=== PATIENT | male | born 1960 | race Caucasian/White ===

== ENCOUNTER 2018-08-04 22:31 | Inpatient (IN) ==
[2018-08-04] MEDS ORDERED: Morphine Inj 4 MG/ML Vial IV.PUSH ONE (22:54)
[2018-08-04] MEDS ORDERED: ceFAZolin 2 GM Premix Inj 2 GM/50 ML PIGGYBACK IV.SIG ONE (22:54)
[2018-08-04] MEDS ORDERED: Sod Chloride 0.9% Inj 1,000 ML IV.CONT SCH (23:00)
--- NOTE | 2018-08-04 23:07 | ED ---
HPI General Chief Complaint: Fall Stated Complaint: Fall Time Seen by Provider: 08/04/18 22:53 Source: patient Mode of arrival: EMS Limitations: no limitations History of Present Illness HPI narrative: The patient is a 57-year-old male who presents to the emergency department via EMS [place]. [place], when he missed the first step of the escalator and fell down the entire length of the escalator. The patient does not believe there was a loss of consciousness, however, does admit to drinking approximately 6-8 beers earlier tonight. The patient complains of a large laceration to the anterior aspect of the right lower extremity as well as abrasions of the anterior abdominal wall and chest wall. The patient also notes lacerations to the right side of the head, denies any significant headache or neck pain. He denies any shortness of breath, nausea, vomiting, or abdominal pain. He denies any difficulty using the upper or lower extremities, however, does complain of pain over the anterior aspect of the right lower extremity. He denies taking any anticoagulants. Last tetanus shot was approximately 5-6 years ago. complaint: Reports fall Onset (ago): minute(s) Loss of Consciousness: unsure Location: Reports head, face, chest and abdomen Location - Extremities: Right: lower leg Severity: moderate Severity scale (1-10): 5 Context: Reports fall Associated symptoms: Reports denies other symptoms Treatments prior to arrival: Reports tourniquet Related Data Home Medications Medication Instructions Recorded Confirmed Htn Med 08/05/18 Prostate Med 08/05/18 Allergies Allergy/AdvReac Type Severity Reaction Status Date / Time No Known Allergies Allergy Verified 08/04/18 22:54 Review of Systems ROS: all other systems reviewed are negative [facility] Medical History Medical History Enlarged prostate (Acute) Hypertension (Acute) Surgical History Surgical History No history of previous surgery (Acute) Social History Social History Substance History: No History of Abuse Second Hand Smoke Exposure: No Smoking Status: Never smoker How Often Do You Have a Drink Containing Alcohol: 2 to 4 times a month Exam Narrative Exam Narrative: GENERAL: Awake, alert, 57-year-old male who appears his stated age and is in no acute respiratory distress. SKIN: Multiple abrasions to the right side of the face. Abrasions noted of the anterior chest wall and abdomen. Large laceration to the right lower extremity of the mid right tibia/fibula. HEAD: Atraumatic. Normocephalic. EYES: Pupils equal and round. 3 mm bilateral and reactive. EOMs are intact. The patient is able to see fingers at a distance of 2 feet without difficulty. ENT: No nasal bleeding or discharge. Mucous membranes pink and moist. NECK: Trachea midline. No JVD. No midline tenderness. CARDIOVASCULAR: Regular rate and rhythm. No murmur appreciated. RESPIRATORY: No accessory muscle use. Clear to auscultation. Breath sounds equal bilaterally. GASTROINTESTINAL: Abdomen soft, obese, superficial abrasions of the anterior abdominal wall. MUSCULOSKELETAL: Chronic venous stasis changes to lower extremities bilaterally. Large laceration to the mid right tibia/fibula which appears to go to the muscle, there is no obvious bony deformity. NEUROLOGICAL: Awake and alert. No obvious cranial nerve deficits. Motor grossly within normal limits. Normal speech. Alert and oriented x3. Back: No tenderness over the thoracic or lumbar vertebrae. PSYCHIATRIC: Appropriate mood and affect; insight and judgment normal. Course Initial Documented Vital Signs Temperature 98.9 F 08/04/18 22:50 Pulse Rate 61 08/04/18 22:50 Respiratory Rate 19 08/04/18 22:50 Blood Pressure 116/67 08/04/18 22:50 Pulse Oximetry 97 08/04/18 22:50 Last Documented Vital Signs Temperature 98.9 F 08/04/18 22:50 Pulse Rate 98 H 08/05/18 06:15 Respiratory Rate 18 08/05/18 06:15 Blood Pressure 84/50 L 08/05/18 06:15 Pulse Oximetry 98 08/05/18 06:15 Medical Decision Making MDM Narrative Medical decision making narrative: IV was established, labs are drawn and sent, and the patient was placed on cardiac telemetry monitoring and continuous pulse oximetry monitoring. X the right tibia/fibula was ordered. Chest x-ray was ordered. CT of the brain, cervical spine, thorax, and abdomen/pelvis was obtained. 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 I discussed the patient with the trauma surgeon, Dr. Crenshaw, who states that the injury is lower than the knee, according to surgical guidelines at [place] that would be a podiatry repair. We did have a discussion, agreed to call back if there is any other injuries and the patient needed trauma admission. CT of the brain and cervical spine are unremarkable. CT of the thorax and abdomen/pelvis are negative. CT of the facial bones reveals facial fractures of the lateral orbit as well as buckling of the maxillary sinus. Patient's alcohol level was also elevated. The patient will need operative debridement and closure of the right lower extremity laceration, patient will be at high risk for infection as he has chronic venous insufficiency of the right lower extremity with skin changes noted. Therefore, patient will be a 23-hour observation to the trauma service, will be kept n.p.o. after midnight, I will place a routine consult for [facility] to see the patient. A call was placed to the biscuitware brusher on-call to discuss possible management of the right lower extremity laceration. I discussed the patient with Dr. Flaherty who requested that the laceration be irrigated in the emergency department and dressings applied, he may take the patient to the operating room later today at 3 PM. The patient's blood pressure did fall to the 90s, there is no obvious source of hemorrhage except for the leg laceration, pressure dressing had been applied. Therefore, the patient was administered IV fluids and monitored in the emergency department. The patient's heart rate was in the 60s-70s, blood pressure systolic was in the 90s, but he was awake, alert, and oriented without confusion. The patient continued to be monitored in the emergency department. The patient's right leg wound was irrigated by the mid-level provider, please refer to the procedure note. The facial wounds were also evaluated by the mid- level provider. The patient continued to be monitored in the emergency department. The patient's blood pressure continued to be in the 80s and 90s, there is no tachycardia, and he was able to have a conversation at bedside. However, when patient sat up and blood pressure was reevaluated, it would drop. Repeat CBC did not show a significant reduction in the hemoglobin, he went from 11.1-10.2. Therefore, I discussed the patient once again with Dr. Crenshaw at 6:15 AM who recommends admission the [facility], he will evaluate the patient in the emergency department. Medical Screen Exam Complete: Yes Emergency Medical Condition: Yes Differential Diagnosis Differential Diagnosis: Differential diagnosis includes multisystem trauma, closed head injury, intracranial hemorrhage, cervical fracture, rib fracture, intra-abdominal injury, tissue avulsion, laceration, contusion, hematoma. Lab Data Result diagrams: 08/05/18 04:45 08/04/18 22:00 Lab Results 08/04/18 08/04/18 08/04/18 Range/Units 22:00 22:00 23:40 WBC 4.4 (4.0-11.0) th/mm3 RBC 3.45 L (4.50-5.90) mil/mm3 Hgb 11.2 L (13.0-17.0) gm/dL Hct 32.8 L (39.0-51.0) % MCV 95.0 (80.0-100.0) fL MCH 32.5 (27.0-34.0) pg MCHC 34.2 (32.0-36.0) % RDW 13.9 (11.6-17.2) % Plt Count 87 L (150-450) th/mm3 MPV 8.1 (7.0-11.0) fL Prelim Diff (Auto) Slide review pending Neut % (Auto) 69.8 (16.0-70.0) % Lymph % (Auto) 19.5 (9.0-44.0) % [place] % (Auto) 6.7 (0.0-8.0) % Eos % (Auto) 3.4 (0.0-4.0) % Baso % (Auto) 0.6 (0.0-2.0) % Neut # (Auto) 3.1 (1.8-7.7) th/mm3 Lymph # (Auto) 0.9 L (1.0-4.8) th/mm3 [place] # (Auto) 0.3 (0.0-0.9) th/mm3 Eos # (Auto) 0.2 (0.0-0.4) th/mm3 Baso # (Auto) 0.0 (0.0-0.2) th/mm3 WBC Differential . Diff Scan Auto diff confirmed Differential Comment . Platelet Estimate Low L (Normal) Platelet Morphology Normal (Normal) PT (9.8-11.6) sec INR Ratio APTT (23.4-31.7) sec Sodium 131 L (136-145) meq/L Potassium 4.0 (3.5-5.1) meq/L Chloride 101 (98-107) meq/L Carbon Dioxide 18.9 L (21.0-32.0) meq/L Anion Gap 11 (5-15) meq/L BUN 22 H (7-18) mg/dL Creatinine 1.32 H (0.60-1.30) mg/dL Estimated GFR 56 L (>89) mL/min Random Glucose 115 H (74-106) mg/dL Calcium 7.5 L (8.5-10.1) mg/dL Serum Alcohol 229 H (0-5) mg/dL Blood Type A Positive Blood Type Recheck Required Antibody Screen Negative 08/04/18 08/05/18 Range/Units 23:40 04:45 WBC 5.1 (4.0-11.0) th/mm3 RBC 3.18 L (4.50-5.90) mil/mm3 Hgb 10.1 L (13.0-17.0) gm/dL Hct 29.8 L (39.0-51.0) % MCV 93.6 (80.0-100.0) fL MCH 31.9 (27.0-34.0) pg MCHC 34.0 (32.0-36.0) % RDW 13.9 (11.6-17.2) % Plt Count 78 L (150-450) th/mm3 MPV 7.9 (7.0-11.0) fL Prelim Diff (Auto) Slide review pending Neut % (Auto) 82.9 H (16.0-70.0) % Lymph % (Auto) 8.5 L (9.0-44.0) % [place] % (Auto) 8.0 (0.0-8.0) % Eos % (Auto) 0.3 (0.0-4.0) % Baso % (Auto) 0.3 (0.0-2.0) % Neut # (Auto) 4.2 (1.8-7.7) th/mm3 Lymph # (Auto) 0.4 L (1.0-4.8) th/mm3 [place] # (Auto) 0.4 (0.0-0.9) th/mm3 Eos # (Auto) 0.0 (0.0-0.4) th/mm3 Baso # (Auto) 0.0 (0.0-0.2) th/mm3 WBC Differential . Diff Scan Auto diff confirmed Differential Comment . Platelet Estimate Low L (Normal) Platelet Morphology Normal (Normal) PT 10.8 (9.8-11.6) sec INR 1.1 Ratio APTT 26.4 (23.4-31.7) sec Sodium (136-145) meq/L Potassium (3.5-5.1) meq/L Chloride (98-107) meq/L Carbon Dioxide (21.0-32.0) meq/L Anion Gap (5-15) meq/L BUN (7-18) mg/dL Creatinine (0.60-1.30) mg/dL Estimated GFR (>89) mL/min Random Glucose (74-106) mg/dL Calcium (8.5-10.1) mg/dL Serum Alcohol (0-5) mg/dL Blood Type Blood Type Recheck Antibody Screen Imaging Data Radiologist's impression: Chest X-Ray 08/04/18 22:54 CONCLUSION: Possible small right effusion Tibia/Fibula X-Ray 08/04/18 22:57 CONCLUSION: No acute bony injury Abdomen/Pelvis CT 08/05/18 00:00 CONCLUSION: No acute traumatic injury in the abdomen or pelvis. Cervical Spine CT 08/05/18 00:00 CONCLUSION: No acute bony injury in the cervical spine. Chest CT 08/05/18 00:00 CONCLUSION: No acute traumatic injury in the chest. Face CT 08/05/18 00:00 CONCLUSION: Mildly displaced right orbital and maxillary fractures as described. Head CT 08/05/18 00:00 CONCLUSION: No acute intracranial injury . Discharge Plan Discharge Disposition Patient Disposition: ED Admit(ED Internal Use Only) Discharge Condition Condition: Stable Discharge Order Discharge Orders: ED Use Only Admit Order (Routine); Ordered 08/05/18 Ordered By: Edson Bone Discharge Details Diagnosis: Facial bone fracture, Laceration of leg, Abrasion, multiple sites, Alcohol intoxication Physicians Team ED Provider: Edson Bone Primary Care Provider: [facility],Physician 's Attending Provider: Tor Crenshaw Other Providers: Wilton Westfall ; Alem Flaherty Status ED Status: Admitted Observation Patient
--- NOTE | 2018-08-04 23:17 | XR ---
EXAM DATE: 08/04/2018 11:14 PM EST AGE/SEX: 57 years / Male INDICATIONS: Trauma due to fall. CLINICAL DATA: This is the patient's initial encounter. Patient reports that signs and symptoms have been present for 1 day and indicates a pain score of 0/10. MEDICAL/SURGICAL HISTORY: None. None. COMPARISON: No prior exams available for comparison. FINDINGS: Slight blunting of the right costophrenic angle may reflect small effusion. Cardiac contours are sati sfactory. No focal infiltrates. CONCLUSION: Possible small right effusion Electronically signed by: Cyril Lynn MD Board Certified Radiologist 08/04/2018 11:15 PM EST
--- NOTE | 2018-08-04 23:23 | XR ---
EXAM DATE: 08/04/2018 11:15 PM EST AGE/SEX: 57 years / Male INDICATIONS: Trauma due to fall. CLINICAL DATA: This is the patient's initial encounter. Patient reports that signs and symptoms have been present for 1 day and indicates a pain score of 10/10. MEDICAL/SURGICAL HISTORY: None. None. COMPARISON: No prior exams available for comparison. FINDINGS: Bony structures are intact and in normal alignment. Osseous density is normal. Apparent bandaged soft tissue injury and soft tissue edema. No radiopaque foreign bodies seen. CONCLUSION: No acute bony injury Electronically signed by: Cyril Lynn MD Board Certified Radiologist 08/04/2018 11:21 PM EST
[2018-08-04 23:50] LABS: Calcium 7.5 mg/dL (8.5-10.1); Carbon Dioxide 18.9 meq/L (21.0-32.0)
[2018-08-05] LABS: Baso % (Auto) 0.6 % (0.0-2.0); Eos # (Auto) 0.2 th/mm3 (0.0-0.4); Eos % (Auto) 3.4 % (0.0-4.0); Hematocrit 32.8 % (39.0-51.0); Hemoglobin 11.2 gm/dL (13.0-17.0); Lymph # (Auto) 0.9 th/mm3 (1.0-4.8); Lymph % (Auto) 19.5 % (9.0-44.0); Mean Corpuscular HGB Conc 34.2 % (32.0-36.0); Mean Corpuscular Hemoglobin 32.5 pg (27.0-34.0); Mean Platelet Volume 8.1 fL (7.0-11.0); Mono # (Auto) 0.3 th/mm3 (0.0-0.9); Mono % (Auto) 6.7 % (0.0-8.0); Neut # (Auto) 3.1 th/mm3 (1.8-7.7); Neut % (Auto) 69.8 % (16.0-70.0); Platelet Count 87 th/mm3 (150-450); Red Blood Count 3.45 mil/mm3 (4.50-5.90); Red Cell Distribution Width 13.9 % (11.6-17.2); White Blood Count 4.4 th/mm3 (4.0-11.0)
--- NOTE | 2018-08-05 00:22 | CT ---
EXAM DATE: 08/05/2018 12:18 AM EST AGE/SEX: 57 years / Male INDICATIONS: Trauma, fall down escalator. Laceration and hematoma to right side of face. CLINICAL DATA: This is the patient's initial encounter. Patient reports that signs and symptoms have been present for 1 day and indicates a pain score of 8/10. MEDICAL/SURGICAL HISTORY: Hypertension. None. RADIATION DOSE: 56.35 CTDI (mGy) COMPARISON: No prior exams available for comparison. TECHNIQUE: CT of the head without contrast. Using automated exposure control and adjustment of the mA and/or kV according to patient size, radiation dose was kept as low as reasonably achievable to ob tain optimal diagnostic quality images. DICOM format image data is available electronically for revi ew and comparison. FINDINGS: Patchy mild hypodensity in deep white matter which appears chronic and benign. No evidence of intracr anial hemorrhage or mass. Nothing to suggest acute infarction or acute injury. Right-sided orbital fa cial fractures. No evidence of skull fracture. CONCLUSION: No acute intracranial injury . Electronically signed by: Cyril Lynn MD Board Certified Radiologist 08/05/2018 12:21 AM EST
[2018-08-05 00:24] LABS: Activated Partial Thrombo Time 26.4 sec (23.4-31.7); INR 1.1 Ratio; Prothrombin Time 10.8 sec (9.8-11.6)
--- NOTE | 2018-08-05 00:24 | CT ---
EXAM DATE: 08/05/2018 12:19 AM EST AGE/SEX: 57 years / Male INDICATIONS: Trauma, fall down escalator. CLINICAL DATA: This is the patient's initial encounter. Patient reports that signs and symptoms have been present for 1 day and indicates a pain score of 4/10. MEDICAL/SURGICAL HISTORY: Hypertension. None. RADIATION DOSE: 27.96 CTDI (mGy) ; Patient body habitus COMPARISON: No prior exams available for comparison. TECHNIQUE: Contiguous axial images were obtained using helical multirow detector technique. The vol umetric data was post-processed with multiplanar reconstruction in oblique axial, sagittal, and coron al planes. Using automated exposure control and adjustment of the mA and/or kV according to patient s ize, radiation dose was kept as low as reasonably achievable to obtain optimal diagnostic quality jarett ges. DICOM format image data is available electronically for review and comparison. FINDINGS: Cervical spine alignment is satisfactory. There is no evidence of cervical spine fracture. There are degenerative changes with disc space narrowing and endplate osteophyte formation most notably at C5-6 and adjacent levels. There is no significant bony canal or foraminal compromise identified. There is no evidence of paraspinal hematoma. CONCLUSION: No acute bony injury in the cervical spine. Electronically signed by: Cyril Lynn MD Board Certified Radiologist 08/05/2018 12:23 AM EST
--- NOTE | 2018-08-05 00:28 | CT ---
EXAM DATE: 08/05/2018 12:18 AM EST AGE/SEX: 57 years / Male INDICATIONS: Trauma, fall down escalator. Laceration and hematoma to right side of face. CLINICAL DATA: This is the patient's initial encounter. Patient reports that signs and symptoms have been present for 1 day and indicates a pain score of 8/10. MEDICAL/SURGICAL HISTORY: Hypertension. None. RADIATION DOSE: 21.96 CTDI (mGy) COMPARISON: No prior exams available for comparison. TECHNIQUE: Contiguous images in the axial and coronal planes were obtained using helical multirow de tector technique. Using automated exposure control and adjustment of the mA and/or kV according to p atient size, radiation dose was kept as low as reasonably achievable to obtain optimal diagnostic odilia lity images. DICOM format image data is available electronically for review and comparison. FINDINGS: There is a minimally displaced fracture involving the lateral right orbital roof and separately a min imally displaced oblique fracture of the lateral orbital rim and lateral orbital wall which propagate s posteriorly without significant displacement. Mildly depressed orbital floor fractures are present with blood in the right maxillary sinus. No herniation of orbital contents. There is buckling of the anterior and lateral frazier of the right maxillary sinus. The contralateral left orbit and maxilla are intact. Nasal bone and maxillary spine are intact. Zygomatic arches are intact. Mandible and temporomandibular joints are intact. The mastoids and middle ear cavities are clear. Other than the right maxillary antrum, the paranasal sinuses are otherwise clear. Prominent soft tissue swelling overlying the right orbit and maxillary eminence soft tissue air indic ating lacerations. Right frontal scalp swelling and laceration. CONCLUSION: Mildly displaced right orbital and maxillary fractures as described. Electronically signed by: Cyril Lynn MD Board Certified Radiologist 08/05/2018 12:27 AM EST
--- NOTE | 2018-08-05 00:30 | CT ---
EXAM DATE: 08/05/2018 12:26 AM EST AGE/SEX: 57 years / Male INDICATIONS: Trauma, fall down escalator. CLINICAL DATA: This is the patient's initial encounter. Patient reports that signs and symptoms have been present for 1 day and indicates a pain score of 8/10. MEDICAL/SURGICAL HISTORY: Hypertension. None. RADIATION DOSE: 13.09 CTDI (mGy) ; Combined studies COMPARISON: No prior exams available for comparison. TECHNIQUE: Multiple contiguous axial images were obtained through the chest during bolus infusion of 100 ml Omnipaque 350 (iohexol) nonionic water-soluble contrast as a cumulative dose for multiple ex ams. Images were obtained in suspended respiration using multiple row detector helical technique. Using automated exposure control and adjustment of the mA and/or kV according to patient size, radiat ion dose was kept as low as reasonably achievable to obtain optimal diagnostic quality images. DICOM format image data is available electronically for review and comparison. FINDINGS: Lungs: The lungs are symmetrically aerated. No infiltrates or nodular densities are seen. Mediastinum: There is good visualization of the great vessels of the middle mediastinum. No evidenc e of mediastinal or hilar adenopathy/mass. Pleurae: No evidence of focal thickening or pleural effusion. Axillae: Unremarkable. Bony Structures: Unremarkable. Miscellaneous: The examination was extended to include the upper abdomen, and both adrenal glands ar e normal in size and configuration. Post Contrast: No abnormal areas of enhancement seen. CONCLUSION: No acute traumatic injury in the chest. Electronically signed by: Cyril Lynn MD Board Certified Radiologist 08/05/2018 12:29 AM EST
--- NOTE | 2018-08-05 00:36 | CT ---
EXAM DATE: 08/05/2018 12:26 AM EST AGE/SEX: 57 years / Male INDICATIONS: Trauma, fall down escalator. CLINICAL DATA: This is the patient's initial encounter. Patient reports that signs and symptoms have been present for 1 day and indicates a pain score of 3/10. MEDICAL/SURGICAL HISTORY: Hypertension. None. ORAL CONTRAST: No oral contrast ingested. RADIATION DOSE: 13.09 CTDI (mGy) ; Combined studies COMPARISON: No prior exams available for comparison. TECHNIQUE: Multiple contiguous axial images were obtained through the abdomen and pelvis following b olus infusion of 100 ml Omnipaque 350 (iohexol) nonionic water-soluble contrast as a cumulative dos e for multiple exams. No oral contrast ingested. Using automated exposure control and adjustment of the mA and/or kV according to patient size, radiation dose was kept as low as reasonably achievable t o obtain optimal diagnostic quality images. DICOM format image data is available electronically for review and comparison. FINDINGS: Lower Lungs: The visualized lower lungs are clear. Liver: Markedly cirrhotic liver appearance. No evidence of focal mass or biliary ductal dilatation. N o evidence of focal injury. Gallbladder surgically absent. Spleen: Enlarged without focal mass or injury. Pancreas: Unremarkable without mass or calcification. Kidneys: Right kidney is notable for mild renal pelvic dilatation. The ureter is minimally prominent . The left kidney is atrophic with moderate presumably chronic hydronephrosis and hydroureter. Adrenal Glands: Small low density right adrenal nodule. Aorta: The aorta and proximal iliac vessels are grossly unremarkable without aneurysmal dilation. Bowel/Mesentery: The bowel loops are grossly unremarkable. The cecum and sigmoid colon have a normal configuration. Abdominal Wall: Intact. Retroperitoneum: Mildly prominent distal left external iliac chain lymph nodes. Bladder: Mildly dilated with diffuse mild wall thickening. Reproductive Organs: Likely TURP defect Inguinal: Mildly prominent left inguinal lymph nodes. Small fat-containing left inguinal hernia. Bony Structures: Unremarkable. CONCLUSION: No acute traumatic injury in the abdomen or pelvis. Electronically signed by: Cyril Lynn MD Board Certified Radiologist 08/05/2018 12:35 AM EST
[2018-08-05 00:39] LABS: Platelet Morphology Normal (Normal)
[2018-08-05] MEDS ORDERED: Ketorolac Inj 30 MG/ML (IVP) Vial IV.PUSH ONE (01:15)
[2018-08-05] MEDS ORDERED: Sod Chloride 0.9% Inj 1,000 ML IV.SIG SCH ×2 (01:15→02:00)
[2018-08-05] MEDS ORDERED: Morphine Sulfate Inj 2 MG/ML Vial IV.PUSH ONE (01:15)
--- NOTE | 2018-08-05 02:50 | ED ---
Procedures Laceration Laceration 1: Site: face Side (If applicable): right Size (cm): 3 Description: linear Depth: simple, single layer Anesthetic used: lidocaine 1% Anesthesia technique:: local infiltration Amount (mL): 6 Pre-repair:: wound explored and irrigated extensively Skin layer closed with: prolene Size (cm): 5-0 Number of sutures:: 5 Technique:: simple, interrupted Laceration 2: Site: lower extremity Side (If applicable): right Size (cm): 20 Description: flap and irregular Depth: involves muscle layer and involves tendon Anesthetic used: lidocaine 1% Anesthesia technique:: local infiltration Amount (mL): 2 Pre-repair:: wound explored, irrigated extensively and extensive debridement Technique:: other Subcutaneous layer closed with: chromic gut Size: 4-0 Number of sutures: 1 Technique:: other (figure of 8 suture to control venous bleed. area then irrigated further and placed pressure dressing ) Muscle layer closed with: chromic gut
[2018-08-05] MEDS ORDERED: fentaNYL Citrate Inj 100 MCG/2 ML Ampul IV.PUSH ONE (04:40)
[2018-08-05 04:58] LABS: Baso % (Auto) 0.3 % (0.0-2.0); Eos % (Auto) 0.3 % (0.0-4.0); Hematocrit 29.8 % (39.0-51.0); Hemoglobin 10.1 gm/dL (13.0-17.0); Lymph # (Auto) 0.4 th/mm3 (1.0-4.8); Lymph % (Auto) 8.5 % (9.0-44.0); Mean Corpuscular Hemoglobin 31.9 pg (27.0-34.0); Mean Corpuscular Volume 93.6 fL (80.0-100.0); Mean Platelet Volume 7.9 fL (7.0-11.0); Mono # (Auto) 0.4 th/mm3 (0.0-0.9); Neut # (Auto) 4.2 th/mm3 (1.8-7.7); Neut % (Auto) 82.9 % (16.0-70.0); Platelet Count 78 th/mm3 (150-450); Red Blood Count 3.18 mil/mm3 (4.50-5.90); Red Cell Distribution Width 13.9 % (11.6-17.2); White Blood Count 5.1 th/mm3 (4.0-11.0)
[2018-08-05 05:34] LABS: Platelet Morphology Normal (Normal)
[2018-08-05] MEDS: ceFAZolin Inj 1 GM in Sodium Chlor 0.9% Inj 100 ML IV.SIG SCH ×4 (06:13→22:37)
[2018-08-05] MEDS: Potassium Chloride Inj 10 MEQ in Sod Chloride 0.9% Inj 1,000 ML IV.CONT SCH ×2 (06:13→15:08)
[2018-08-05] MEDS ORDERED: Sodium Chlor 0.9% Inj 500 ML IV.SIG SCH (07:00)
[2018-08-05] MEDS ORDERED: Acetaminophen 325 MG Tablet PO PRN (07:04)
--- NOTE | 2018-08-05 07:28 | P.HP ---
History of Present Illness Primary Care Physician: Physician [facility] Chief Complaint: Multitrauma History of Present Illness: 57-year-old morbidly obese male who was taken to the emergency department via EMS after he fell down an escalator at [employer] [facility] [employer]. Patient reports he missed the first step of the escalator and fell down the entire length of the escalator. He does not recall loss of consciousness. There were lacerations to the right side of the head abdomen and a large soft tissue defect of the right lower leg. Workup has demonstrated no evidence of intra-abdominal or intracranial injuries. He reports only taking antihypertensives and no other meds. He states that he has been told he is diabetic however. 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 - Medical History Medical History: Medical History (Last Updated 08/04/18 @ 23:10 by Geoff Nunez) Enlarged prostate Hypertension - Surgical History Surgical History: Surgical History (Last Updated 08/04/18 @ 23:10 by Geoff Nunez) No history of previous surgery - Tobacco History Second Hand Smoke Exposure: No Smoking Status: Never smoker - Alcohol History How Often Do You Have a Drink Containing Alcohol: 2 to 4 times a month - Substance Use History Substance History: No History of Abuse - Immunization History Tetanus Immunization: >5 Years Medications and Allergies Active Medications: Active Medications Acetaminophen (Tylenol) 650 mg PO Q6H PRN PRN Reason: TEMPERATURE > 102 F Hydrocodone Bitart/Acetaminophen ([place] 5/325) 1 tab PO Q4H PRN PRN Reason: Pain 1-5 Hydrocodone Bitart/Acetaminophen ([place] 5/325) 2 tab PO Q4H PRN PRN Reason: Pain 6 - 10 Al Hydroxide/Mg Hydroxide (Milk Of Magnesia Liq) 30 ml PO BID MICHELLE Bacitracin (Baciguent Oint) 1 applicatio TOPICAL BID MICHELLE Chlorhexidine Gluconate (Chlorhexidine 2% Cloth) 3 pack TOPICAL DAILY@0400 MICHELLE Stop: 08/11/18 03:59 Chlorhexidine Gluconate (Chlorhexidine 2% Cloth) 3 pack TOPICAL DAILY@0400 PRN PRN Reason: Extra cloth needed Stop: 08/11/18 03:59 Docusate Sodium (Colace) 100 mg PO BID [facility] Enalaprilat (Vasotec Inj) 1.25 mg IV.PUSH Q8H PRN PRN Reason: SBP>180, DBP>95 Potassium Chloride 10 meq/ (Sodium Chloride) 1,005 mls @ 100 mls/hr IV.CONT .Q10H3M MICHELLE Last Admin: 08/05/18 06:13 Dose: 100 mls/hr Cefazolin Sodium 1 gm/ Sodium (Chloride) 100 mls @ 200 mls/hr IV.SIG Q8H MICHELLE Last Admin: 08/05/18 06:13 Dose: 200 mls/hr Sodium Chloride (Ns Inj) 500 mls @ 1,000 mls/hr IV.SIG BOLUS [facility] Stop: 08/05/18 07:29 Last Admin: 08/05/18 06:13 Dose: 1,000 mls/hr Multivitamins 10 ml/ Thiamine HCl 100 mg/ Folic Acid 1 mg/Sodium Chloride 511.2 mls @ 125 mls/hr IV.SIG Q24H [facility] Stop: 08/07/18 14:06 Morphine Sulfate (Morphine Inj) 4 mg IV.PUSH Q4H PRN PRN Reason: PAIN SCALE 1 TO 10 Ondansetron HCl (Zofran Inj) 4 mg IV.PUSH Q6H PRN PRN Reason: MILD NAUSEA Last Admin: 08/05/18 06:25 Dose: 4 mg Ondansetron HCl (Zofran Inj) 4 mg IV.PUSH Q6H PRN PRN Reason: NAUSEA OR VOMITING Pantoprazole Sodium (Protonix Inj) 40 mg IV.PUSH Q24H [facility] Sodium Chloride (Ns Flush) 2 ml IV.FLUSH PRN PRN PRN Reason: FLUSH AFTER USING IV ACCESS Sodium Chloride (Ns Flush) 2 ml IV.FLUSH UNSCH PRN PRN Reason: FLUSH AFTER USING IV ACCESS Allergies Allergy/AdvReac Type Severity Reaction Status Date / Time No Known Allergies Allergy Verified 08/04/18 22:54 Home Medications Medication Instructions Recorded Confirmed Type Htn Med 08/05/18 History Prostate Med 08/05/18 History Exam Vital signs: Vital Signs 08/04/18 22:50 08/04/18 23:00 08/05/18 01:00 Temperature 98.9 F Pulse Rate 61 61 64 Respiratory Rate 19 18 Blood Pressure 116/67 90/50 L Pulse Oximetry 97 97 98 08/05/18 03:00 08/05/18 05:00 08/05/18 06:15 Temperature Pulse Rate 70 68 98 H Respiratory Rate 16 15 18 Blood Pressure 83/46 L 102/53 L 84/50 L Pulse Oximetry 97 96 98 Intake & Output 08/04/18 08/05/18 08/05/18 18:59 06:59 18:59 Intake Total 3050 / 3050 Balance 3050 / 3050 Weight 113.398 kg Intake: IV 3050 / 3050 NS Inj 1,000 ML @ 1000 mls/hr 1000 / 1000 IV.CONT .Q1H MICHELLE Rx#:[id number] NS Inj 1,000 ML @ 1000 mls/hr 1999 / 1999 IV.SIG BOLUS MICHELLE Rx#:[id number] Ancef 2 GM Premix Inj 2 gm In 50 / 50 50 ml @ 100 mls/hr IV.SIG ONCE ONE Rx#:[id number] - Constitutional no acute distress - Routine HEENT Exam Head: Present: normocephalic, laceration (Periorbital region; repaired in ED), facial swelling Eye: Present: periorbital swelling (On the right), periorbital tenderness (On the right) - Routine Neck Exam Present: supple - Routine Respiratory Exam Present: decreased breath sounds - Routine Cardiovascular Exam Present: RRR - Routine Abdominal Exam Present: soft, wound (Multiple parallel superficial lacerations on the upper and lower.) - Routine Extremities Exam Present: extremity cold to touch Comments: No palpable pulses. Chronic venous stasis ulcers on the left. Large soft tissue defect right lower extremity approximately 10 x 15 cm in size. No fracture associated with this. Inferiorly based flap. - Routine Skin Exam Present: wounds (Large defect right lower extremity as described above; chronic venous stasis ulcers on left leg.) - Routine Neurological Exam Present: alert, oriented X3, CN II-XII intact, moving all extremities, hearing grossly intact Results - Labs CBC & Chem 7: 08/05/18 04:45 08/04/18 22:00 Labs: Laboratory Results - last 24 hr 08/04/18 08/04/18 08/04/18 22:00 22:00 23:40 WBC 4.4 RBC 3.45 L Hgb 11.2 L Hct 32.8 L MCV 95.0 MCH 32.5 MCHC 34.2 RDW 13.9 Plt Count 87 L MPV 8.1 Prelim Diff (Auto) Slide review pending Neut % (Auto) 69.8 Lymph % (Auto) 19.5 [place] % (Auto) 6.7 Eos % (Auto) 3.4 Baso % (Auto) 0.6 Neut # (Auto) 3.1 Lymph # (Auto) 0.9 L [place] # (Auto) 0.3 Eos # (Auto) 0.2 Baso # (Auto) 0.0 WBC Differential . Diff Scan Auto diff confirmed Differential Comment . Platelet Estimate Low L Platelet Morphology Normal PT INR APTT Sodium 131 L Potassium 4.0 Chloride 101 Carbon Dioxide 18.9 L Anion Gap 11 BUN 22 H Creatinine 1.32 H Estimated GFR 56 L Random Glucose 115 H Calcium 7.5 L Serum Alcohol 229 H Blood Type A Positive Blood Type Recheck Required Antibody Screen Negative 08/04/18 08/05/18 23:40 04:45 WBC 5.1 RBC 3.18 L Hgb 10.1 L Hct 29.8 L MCV 93.6 MCH 31.9 MCHC 34.0 RDW 13.9 Plt Count 78 L MPV 7.9 Prelim Diff (Auto) Slide review pending Neut % (Auto) 82.9 H Lymph % (Auto) 8.5 L [place] % (Auto) 8.0 Eos % (Auto) 0.3 Baso % (Auto) 0.3 Neut # (Auto) 4.2 Lymph # (Auto) 0.4 L [place] # (Auto) 0.4 Eos # (Auto) 0.0 Baso # (Auto) 0.0 WBC Differential . Diff Scan Auto diff confirmed Differential Comment . Platelet Estimate Low L Platelet Morphology Normal PT 10.8 INR 1.1 APTT 26.4 Sodium Potassium Chloride Carbon Dioxide Anion Gap BUN Creatinine Estimated GFR Random Glucose Calcium Serum Alcohol Blood Type Blood Type Recheck Antibody Screen - Imaging Impressions Chest X-Ray 08/04/18 22:54 CONCLUSION: Possible small right effusion Tibia/Fibula X-Ray 08/04/18 22:57 CONCLUSION: No acute bony injury Abdomen/Pelvis CT 08/05/18 00:00 CONCLUSION: No acute traumatic injury in the abdomen or pelvis. Cervical Spine CT 08/05/18 00:00 CONCLUSION: No acute bony injury in the cervical spine. Chest CT 08/05/18 00:00 CONCLUSION: No acute traumatic injury in the chest. Face CT 08/05/18 00:00 CONCLUSION: Mildly displaced right orbital and maxillary fractures as described. Head CT 08/05/18 00:00 CONCLUSION: No acute intracranial injury . Caprini VTE Risk Assessment Caprini VTE Risk Assessment: Moderate/High Risk (score >= 2) VTE Pharmacological Exception Reason: Documented (Open wound with plan for surgical intervention today may begin BTE prophylaxis after surgery tomorrow.) VTE Mechanical Exception: LE injury/wound Caprini Risk Assessment Model: Point Value = 1 Point Value = 2 Point Value = 3 Point Value = 5 Age 41-60 Minor surgery BMI > 25 kg/m2 Swollen legs Varicose veins or History of unexplained or recurrent spontaneous Oral contraceptives or hormone replacement Sepsis (< 1 month) Serious lung disease, including pneumonia (< 1 month) Abnormal pulmonary function Acute myocardial infarction Congestive heart failure (< 1 month) History of inflammatory bowel disease Medical patient at bed rest Age 61-74 Arthroscopic surgery Major open surgery (> 45 min) Laparoscopic surgery (> 45 min) Malignancy Confined to bed (> 72 hours) Immobilizing plaster cast Central venous access Age >= 75 History of VTE Family history of VTE Factor V Leiden Prothrombin [id number] Lupus anticoagulant Anticardiolipin antibodies Elevated serum homocysteine Heparin-induced thrombocytopenia Other congenital or acquired thrombophilia Stroke (< 1 month) Elective arthroplasty Hip, pelvis, or leg fracture Acute spinal cord injury (< 1 month) Prophylaxis Regimen: Total Risk Factor Score Risk Level Prophylaxis Regimen 0-1 Low Early ambulation 2 Moderate Order ONE of the following: *Sequential Compression Device (SCD) *Heparin 5000 units SQ BID 3-4 Higher Order ONE of the following medications: *Heparin 5000 units SQ TID *Enoxaparin/Lovenox 40 mg SQ daily (WT < 150 kg, CrCl > 30 mL/min) *Enoxaparin/Lovenox 30 mg SQ daily (WT < 150 kg, CrCl > 10-29 mL/min) *Enoxaparin/Lovenox 30 mg SQ BID (WT < 150 kg, CrCl > 30 mL/min) AND/OR *Sequential Compression Device (SCD) 5 or more Highest Order ONE of the following medications: *Heparin 5000 units SQ TID (Preferred with Epidurals) *Enoxaparin/Lovenox 40 mg SQ daily (WT < 150 kg, CrCl > 30 mL/min) *Enoxaparin/Lovenox 30 mg SQ daily (WT < 150 kg, CrCl > 10-29 mL/min) *Enoxaparin/Lovenox 30 mg SQ BID (WT < 150 kg, CrCl > 30 mL/min) AND *Sequential Compression Device (SCD) Assessment and Plan - Assessment (1) Laceration of leg Code(s): S81.819A - Laceration without foreign body, unspecified lower leg, initial encounter Status: Acute Plan: Dr. Flaherty take patient to the OR today for I&D and probable VAC placement of right lower extremity. Patient's healing will be very problematic due to his chronic venous stasis ulcers. He likely has significant peripheral vascular disease. (2) Abrasion, multiple sites Code(s): T07.XXXA - Unspecified multiple injuries, initial encounter Status: Acute Plan: Local wound control with antibiotic ointment and dressings as necessary. (3) Facial bone fracture Code(s): S02.92XA - Unspecified fracture of facial bones, initial encounter for closed fracture Status: Acute Plan: Evaluation by maxillofacial service; does not appear to have any intraocular entrapment. Semi-elective repair may be accomplished after swelling resolves. Lower extremity injury is of higher priority. (4) Hypotension determined by examination Code(s): I95.9 - Hypotension, unspecified Status: Acute Plan: Unclear etiology. Repeat hemoglobin only decreased from 11.1-10.2. Systolic blood pressure in the low to mid 90s. Patient is received 3 L crystalloid. In light of negative workup with CT of head C-spine thorax abdomen pelvis all being negative, patient likely is dehydrated, but requires close observation until this resolves. I do not feel that it he will require pressor therapy at this time, but this may be needed later today. We will recheck H&H. There is no active bleeding from the lower extremity wound at this time. (1) Laceration of leg Qualifiers: Encounter type: initial encounter Laterality: right Qualified Code(s): S81.811A - Laceration without foreign body, right lower leg, initial encounter (3) Facial bone fracture Qualifiers: Encounter type: initial encounter Facial bone/location: unspecified facial bone Fracture type: closed Qualified Code(s): S02.92XA - Unspecified fracture of facial bones, initial encounter for closed fracture
[2018-08-05] MEDS: Pantoprazole Inj 40 MG Vial IV.PUSH SCH (08:41)
[2018-08-05] MEDS ORDERED: Phenylephrine/NS 1000 MCG/10ML Syringe IV.PUSH ONE (09:34)
[2018-08-05] MEDS ORDERED: Lidocaine PF 1% Inj 5 ML Syringe INFILTRATN ONE (09:34)
[2018-08-05] MEDS: Multivitamin Inj 10 ML, Thiamine Inj 100 MG, Folic Acid Inj 1 MG in Sodium Chlor 0.9% I... IV.SIG SCH (10:04)
[2018-08-05] MEDS: Docusate Sodium 100 MG Capsule PO SCH ×2 (10:09→22:30)
--- NOTE | 2018-08-05 11:42 | P.PNCC ---
Subjective Brief History: [place]: This is a 57-year old male who sustained a fall. He fell down an escalator at the [place]. Apparently he missed a step, and fell the entire flight of stairs. Positive EtOH. INJURIES: RIGHT Facial lacerations (5,1) White matter hypodensity -chronic and benign RIGHT orbital and maxillary sinus fx RIGHT lower extremity laceration PMHx: HTN. Cirrhosis. Left hydronephrosis. Severe PVD. 24 Hour Review/Hospital Course: 08/05/2018: Patient sitting up on the side of the bed, with physical therapy. No complaints offered. 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." Objective Vital Signs / I&O: Vital Signs 08/04/18 22:50 08/04/18 23:00 08/05/18 01:00 Temperature 98.9 F Pulse Rate 61 61 64 Respiratory Rate 19 18 Blood Pressure 116/67 90/50 L Pulse Oximetry 97 97 98 08/05/18 03:00 08/05/18 05:00 08/05/18 06:15 Temperature Pulse Rate 70 68 98 H Respiratory Rate 16 15 18 Blood Pressure 83/46 L 102/53 L 84/50 L Pulse Oximetry 97 96 98 08/05/18 07:33 08/05/18 09:07 08/05/18 09:11 Temperature 98.9 F Pulse Rate 72 75 74 Respiratory Rate 20 20 18 Blood Pressure 92/46 L 111/55 L 105/55 L Pulse Oximetry 98 98 90 L 08/05/18 09:33 Temperature Pulse Rate 80 Respiratory Rate 24 Blood Pressure 106/63 Pulse Oximetry 95 Intake & Output 08/04/18 08/05/18 08/05/18 18:59 06:59 18:59 Intake Total 3050 / 3050 600 / 600 Output Total 200 / 200 Balance 3050 / 3050 400 / 400 Weight 113.398 kg 125.5 kg Intake: IV 3050 / 3050 600 / 600 NS Inj 1,000 ML @ 1000 mls/hr 1000 / 1000 IV.CONT .Q1H MICHELLE Rx#:[id number] NS Inj 1,000 ML @ 1000 mls/hr 2000 / 1999 IV.SIG BOLUS MICHELLE Rx#:[id number] NS Inj 500 ML @ 1000 mls/hr IV. 500 / 500 SIG BOLUS [facility] Rx#:[id number] Ancef 2 GM Premix Inj 2 gm In 50 / 50 50 ml @ 100 mls/hr IV.SIG ONCE ONE Rx#:[id number] Ancef Inj 1 GM In NS Inj 100 ML 100 / 100 @ 200 mls/hr IV.SIG Q8H MICHELLE Rx #:[id number] Output: Urine 200 / 200 Other: # Voids 1 # Urine Diapers 1 Weight On Admission 113.3 kg Result Diagrams: 08/05/18 04:45 08/04/18 22:00 Imaging: Impressions Chest X-Ray 08/04/18 22:54 CONCLUSION: Possible small right effusion Tibia/Fibula X-Ray 08/04/18 22:57 CONCLUSION: No acute bony injury Abdomen/Pelvis CT 08/05/18 00:00 CONCLUSION: No acute traumatic injury in the abdomen or pelvis. Cervical Spine CT 08/05/18 00:00 CONCLUSION: No acute bony injury in the cervical spine. Chest CT 08/05/18 00:00 CONCLUSION: No acute traumatic injury in the chest. Face CT 08/05/18 00:00 CONCLUSION: Mildly displaced right orbital and maxillary fractures as described. Head CT 08/05/18 00:00 CONCLUSION: No acute intracranial injury . Objective Remarks: GENERAL: This is a 57-year-old obese male sitting on the side of the bed. No distress noted. SKIN: Warm and dry. HEAD: Atraumatic. Normocephalic. EYES: PERRLA. Several scattered superficial abrasions lacerations noted to right eye area/right side of face. Some with sutures . Sutures [employer]. ENT: No nasal bleeding or discharge. Mucous membranes pink and moist. NECK: Trachea midline. No JVD. CARDIOVASCULAR: Regular rate and rhythm. RESPIRATORY: No accessory muscle use. Lungs are clear to auscultation. Breath sounds equal bilaterally. No distress or dyspnea. GASTROINTESTINAL: BS + x 4 quads. Abdomen soft, non-tender, nondistended. MUSCULOSKELETAL: Extremities without cyanosis, or edema. Right lower extremity wrapped in Viktor bandage. Left lower extremity with dark pigmentation noted and scattered open abrasions. + peripheral pulses x 4 extremities. Warm with good capillary refill and sensation. MAEW. NEUROLOGICAL: Awake and alert. Normal speech and pattern. Assessment and Plan - Assessment (1) Facial bone fracture Code(s): S02.92XA - Unspecified fracture of facial bones, initial encounter for closed fracture Status: Acute (2) Laceration of leg Code(s): S81.819A - Laceration without foreign body, unspecified lower leg, initial encounter Status: Acute (3) Abrasion, multiple sites Code(s): T07.XXXA - Unspecified multiple injuries, initial encounter Status: Acute (4) Alcohol intoxication Code(s): F10.929 - Alcohol use, unspecified with intoxication, unspecified Status: Acute (5) Hypotension determined by examination Code(s): I95.9 - Hypotension, unspecified Status: Acute Plan: [place]: This is a 57-year-old male who sustained a fall. He fell down an escalator at the [place]. Apparently he missed a step, and fell down the entire flight of escalator stairs. Positive EtOH INJURIES: RIGHT Facial lacerations (5,1) White matter hypodensity -chronic and benign RIGHT orbital and maxillary sinus fx RIGHT lower extremity laceration PMHx: HTN. Cirrhosis. Left hydronephrosis. Procedures: 08/05: OR for laceration repair -with podiatry Consults: OMFS. Podiatry. Case management. Diet: Currently n.p.o. -awaiting OR with podiatry Pulmonary: Encourage good pulmonary toileting. IS at bedside and pt encouraged to use. Rationale for use explained to patient, and verbalized understanding. PAIN Management: [place] 5-10 mg q4h. Morphine 4 mg q 4h for breakthrough pain. Activity: OOB. PT and OT ordered. (WBS?) GI prophylaxis: Protonix 40 mg IV Bowel regimen: Colace. MOM. LBM: 0 DVT prophylaxis: Mechanical VTE with SCDs. Chemical management TBD post OR. DC Planning: Case management consulted for assistance with final discharge disposition. Emotional support provided to patient and family at bedside and plan of care discussed. Discussed with RN at bedside. Discussed pt condition and plan of care with collaborating trauma surgeon. Patient is hemodynamically stable and being managed on the med/surg floor. The trauma team will round each day, and evaluate plan of care on a daily basis. RIGHT Facial lacerations (5,1) RIGHT orbital and maxillary sinus fx OMFS consulted -awaiting assessment and plan Supportive care Pain management Encourage out of bed PT and OT ordered Bowel regimen SCDs for DVT prophylaxis Wash facial laceration/sutures daily with soap and water. Pat dry. May apply bacitracin twice daily RIGHT lower extremity laceration Podiatry consulted and assisting in management and care Plan for OR today for washout and repair 08/05: MRI lower extremities -awaiting completion and results Supportive care Pain management Encourage out of bed PT and OT ordered Await weightbearing status per podiatry Bowel regimen SCDs for DVT prophylaxis Pre-existing condition HTN Cirrhosis Left hydronephrosis PVD Vital signs every 4 hours and as needed Obtain home medications and proper doses Monitor urine output closely Monitor lower extremities in light of PVD, and wound healing Consider endovascular treatment if needed Trauma surgery/vascular surgery following (1) Facial bone fracture Qualifiers: Encounter type: initial encounter Facial bone/location: unspecified facial bone Fracture type: closed Qualified Code(s): S02.92XA - Unspecified fracture of facial bones, initial encounter for closed fracture (2) Laceration of leg Qualifiers: Encounter type: initial encounter Laterality: right Qualified Code(s): S81.811A - Laceration without foreign body, right lower leg, initial encounter (4) Alcohol intoxication Qualifiers: Complication of substance-induced condition: uncomplicated Qualified Code(s) : F10.920 - Alcohol use, unspecified with intoxication, uncomplicated
--- NOTE | 2018-08-05 13:27 | MR ---
EXAM DATE: 08/05/2018 12:27 PM EST AGE/SEX: 57 years / Male INDICATIONS: Degloving injury. CLINICAL DATA: This is the patient's initial encounter. Patient reports that signs and symptoms have been present for 1 day and indicates a pain score of 0/10. MEDICAL/SURGICAL HISTORY: Hypertension. Diabetes mellitus type II. Appendectomy. Cholecystect kareem. COMPARISON: No prior exams available for comparison. TECHNIQUE: Multiplanar, multisequence MRI examination was performed without contrast. FINDINGS: Bones: The osseous structures are in normal alignment. No evidence of fracture or bony edema. Muscle: There is some edema within the anterior tibialis muscle and the extensor hallucis longus mus sofia. There is equivocal edema within the peroneal longus muscle. Soft Tissues: There is diffuse subcutaneous edema. Other: The neurovascular structures are intact. CONCLUSION: 1. Diffuse subcutaneous edema. Minimal edema in the anterior tibialis muscle and the flexure halluci s longus muscle without evidence of tendinous retraction or full-thickness tear. No drainable fluid c ollection is identified. Electronically signed by: John Paul Beltrán MD Board Certified Radiologist 08/05/2018 1:26 PM EST
[2018-08-05 14:25] LABS: Baso % (Auto) 0.3 % (0.0-2.0); Eos % (Auto) 0.4 % (0.0-4.0); Hematocrit 32.7 % (39.0-51.0); Hemoglobin 11.1 gm/dL (13.0-17.0); Lymph # (Auto) 0.2 th/mm3 (1.0-4.8); Lymph % (Auto) 3.4 % (9.0-44.0); Mean Corpuscular Volume 96.9 fL (80.0-100.0); Mean Platelet Volume 7.7 fL (7.0-11.0); Mono # (Auto) 0.4 th/mm3 (0.0-0.9); Mono % (Auto) 8.6 % (0.0-8.0); Neut # (Auto) 4.6 th/mm3 (1.8-7.7); Neut % (Auto) 87.3 % (16.0-70.0); Platelet Count 70 th/mm3 (150-450); Red Blood Count 3.38 mil/mm3 (4.50-5.90); Red Cell Distribution Width 13.8 % (11.6-17.2); White Blood Count 5.2 th/mm3 (4.0-11.0)
--- NOTE | 2018-08-05 15:31 | P.CON ---
History of Present Illness Service: Oral & Maxillofacial Surgery Consult date: 08/05/18 Requesting Physician: Edson Bone Reason for Consult: Facial fractures Primary Care Provider: [facility] Chief Complaint: s/p mechanical fall History of Present Illness: 57 y/o M with a history of HTN presents to [facility] after a mechanical fall from an escalator at the [employer] yesterday evening. He reports that this occurred after drinking alcohol. He denies any loss of consciousness. Currently, he denies any changes in his occlusion, changes in his vision, blurry vision, double vision. He denies any numbness in the face. He reports pain in the right periorbital region. Review of Systems Eyes: Denies blurry vision, Denies change in vision, Denies double vision Ears, Nose, Mouth, and Throat: Reports facial pain, Denies dental pain, Denies difficulty swallowing, Denies nose pain, Denies pain with swallowing Cardiovascular: Denies chest pain Respiratory: Denies shortness of breath Gastrointestinal: Denies abdominal pain PMFSH - History History Provided By: Patient - Medical History Medical History: Medical History (Last Reviewed 08/05/18 @ 11:29 by Tracie Muller) Enlarged prostate Hypertension - Surgical History Surgical History: Surgical History (Last Updated 08/04/18 @ 23:10 by Geoff Nunez) No history of previous surgery - Tobacco History Second Hand Smoke Exposure: No Tobacco Use In Past 30 Days: No Smoking Status: Never smoker - Alcohol History How Often Do You Have a Drink Containing Alcohol: Monthly or less - Substance Use History Substance History: No History of Abuse - Travel History Recent Travel in the [place] Within the Last 8 Weeks: No Recent Travel Out of the Country Within the Last 8 Weeks: No - Immunization History Tetanus Immunization: >5 Years Hx Influenza Vaccine This Season: No Medications and Allergies Active Medications: Active Medications Acetaminophen (Tylenol) 650 mg PO Q6H PRN PRN Reason: TEMPERATURE > 102 F Hydrocodone Bitart/Acetaminophen ([place] 5/325) 1 tab PO Q4H PRN PRN Reason: Pain 1-5 Hydrocodone Bitart/Acetaminophen ([place] 5/325) 2 tab PO Q4H PRN PRN Reason: Pain 6 - 10 Al Hydroxide/Mg Hydroxide (Milk Of Magnesia Liq) 30 ml PO BID MICHELLE Last Admin: 08/05/18 10:09 Dose: Not Given Bacitracin (Baciguent Oint) 1 applicatio TOPICAL BID [facility] Last Admin: 08/05/18 10:08 Dose: 1 applicatio Docusate Sodium (Colace) 100 mg PO BID [facility] Last Admin: 08/05/18 10:09 Dose: Not Given Enalaprilat (Vasotec Inj) 1.25 mg IV.PUSH Q8H PRN PRN Reason: SBP>180, DBP>95 Potassium Chloride 10 meq/ (Sodium Chloride) 1,005 mls @ 100 mls/hr IV.CONT .Q10H3M [facility] Last Admin: 08/05/18 15:08 Dose: Not Given Multivitamins 10 ml/ Thiamine HCl 100 mg/ Folic Acid 1 mg/Sodium Chloride 511.2 mls @ 125 mls/hr IV.SIG Q24H [facility] Stop: 08/07/18 14:06 Last Infusion: 08/05/18 14:46 Dose: Infused Cefazolin Sodium 1 gm/ Sodium (Chloride) 100 mls @ 200 mls/hr IV.SIG Q8H [facility] Last Infusion: 08/05/18 15:24 Dose: Infused Morphine Sulfate (Morphine Inj) 4 mg IV.PUSH Q4H PRN PRN Reason: PAIN SCALE 1 TO 10 Ondansetron HCl (Zofran Inj) 4 mg IV.PUSH Q6H PRN PRN Reason: MILD NAUSEA Last Admin: 08/05/18 06:25 Dose: 4 mg Ondansetron HCl (Zofran Inj) 4 mg IV.PUSH Q6H PRN PRN Reason: NAUSEA OR VOMITING Pantoprazole Sodium (Protonix Inj) 40 mg IV.PUSH Q24H [facility] Last Admin: 08/05/18 08:41 Dose: 40 mg Sodium Chloride (Ns Flush) 2 ml IV.FLUSH PRN PRN PRN Reason: FLUSH AFTER USING IV ACCESS Sodium Chloride (Ns Flush) 2 ml IV.FLUSH UNSCH PRN PRN Reason: FLUSH AFTER USING IV ACCESS Allergies Allergy/AdvReac Type Severity Reaction Status Date / Time No Known Allergies Allergy Verified 08/04/18 22:54 Home Medications Medication Instructions Recorded Confirmed Type Htn Med 08/05/18 History Prostate Med 08/05/18 History Physical Exam Vital signs: Vital Signs 08/04/18 22:50 08/04/18 23:00 08/05/18 01:00 Temperature 98.9 F Pulse Rate 61 61 64 Respiratory Rate 19 18 Blood Pressure 116/67 90/50 L Pulse Oximetry 97 97 98 08/05/18 03:00 08/05/18 05:00 08/05/18 06:15 Temperature Pulse Rate 70 68 98 H Respiratory Rate 16 15 18 Blood Pressure 83/46 L 102/53 L 84/50 L Pulse Oximetry 97 96 98 08/05/18 07:33 08/05/18 09:07 08/05/18 09:11 Temperature 98.9 F Pulse Rate 72 75 74 Respiratory Rate 20 20 18 Blood Pressure 92/46 L 111/55 L 105/55 L Pulse Oximetry 98 98 90 L 08/05/18 09:33 Temperature Pulse Rate 80 Respiratory Rate 24 Blood Pressure 106/63 Pulse Oximetry 95 Intake & Output 08/04/18 08/05/18 08/05/18 18:59 06:59 18:59 Intake Total 3050 / 3050 1211.2 / 1211.2 Output Total 200 / 200 Balance 3050 / 3050 1011.2 / 1011.2 Weight 113.398 kg 125.5 kg Intake: IV 3050 / 3050 1211.2 / 1211.2 NS Inj 1,000 ML @ 1000 mls/hr 1000 / 1000 IV.CONT .Q1H MICHELLE Rx#:[id number] MVI-12 Inj 10 ML Thiamine Inj 511.2 / 511.2 100 MG Folvite Inj 1 MG In NS Inj 500 ML @ 125 mls/hr IV.SIG Q24H MICHELLE Rx#:[id number] NS Inj 1,000 ML @ 1000 mls/hr 1999 / 1999 IV.SIG BOLUS MICHELLE Rx#:[id number] NS Inj 500 ML @ 1000 mls/hr IV. 500 / 500 SIG BOLUS MICHELLE Rx#:[id number] Ancef 2 GM Premix Inj 2 gm In 50 / 50 50 ml @ 100 mls/hr IV.SIG ONCE ONE Rx#:[id number] Ancef Inj 1 GM In NS Inj 100 ML 200 / 200 @ 200 mls/hr IV.SIG Q8H MICHELLE Rx #:[id number] Output: Urine 200 / 200 Other: # Voids 1 # Urine Diapers 1 Weight On Admission 113.3 kg Narrative: General: Obese male, comfortable, and in no apparent distress. Neurological: Alert, oriented, in NAD. CNV and CNVII intact bilaterally. HEENT: Head/Face: Multiple abrasions and repaired lacerations (Prolene) over the right lateral face. Hemorrhagic crusting over the abrasions with mild sanguinous discharge lateral to the right lateral canthus. Scalp nonboggy with no palpable step-offs or deformities. Right periorbital edema and ecchymosis with tenderness to palpation along the right supralateral and lateral orbital rims. Malar prominences symmetric and without deformity. Midface stable. No palpable step-offs along inferior mandibular border. Eyes/Orbits: PERRL. EOMI. Right subconjuctival hemorrhage. Nose: External nose is midline with no step off or deformity. No septal hematoma. No rhinorrhea or epistaxis. TMJ/Mandible: Bilateral TMJ nontender to palpation. Normal mandibular ROM with no deviations or restrictions with maximum opening, protrusion or lateral excursions. JACK >4 cm. Oral Cavity/Oropharynx: The gingiva, labial and buccal mucosa, hard and soft palate, posterior oropharyngeal wall, tongue and floor of mouth are without lacerations or lesion. Mucosa pink and well hydrated. No maxillary or mandibular vestibular ecchymosis. Floor of mouth soft. Uvula midline. Multiple missing and grossly carious teeth. Neck: Supple without cervical LAD or thyromegaly. Trachea midline. Cardiovascular: Regular rate Pulmonary: Normal work of breathing. Results - Labs CBC & Chem 7: 08/05/18 13:52 08/04/18 22:00 Labs: Laboratory Results - last 24 hr 08/04/18 08/04/18 08/04/18 22:00 22:00 23:40 WBC 4.4 RBC 3.45 L Hgb 11.2 L Hct 32.8 L MCV 95.0 MCH 32.5 MCHC 34.2 RDW 13.9 Plt Count 87 L MPV 8.1 Prelim Diff (Auto) Slide review pending Neut % (Auto) 69.8 Lymph % (Auto) 19.5 [place] % (Auto) 6.7 Eos % (Auto) 3.4 Baso % (Auto) 0.6 Neut # (Auto) 3.1 Lymph # (Auto) 0.9 L [place] # (Auto) 0.3 Eos # (Auto) 0.2 Baso # (Auto) 0.0 WBC Differential . Diff Scan Auto diff confirmed Differential Comment . Platelet Estimate Low L Platelet Morphology Normal PT INR APTT Sodium 131 L Potassium 4.0 Chloride 101 Carbon Dioxide 18.9 L Anion Gap 11 BUN 22 H Creatinine 1.32 H Estimated GFR 56 L Random Glucose 115 H Calcium 7.5 L Nasal Screen MRSA (PCR) Serum Alcohol 229 H Blood Type A Positive Blood Type Recheck Required Antibody Screen Negative 08/04/18 08/05/18 08/05/18 23:40 04:45 09:50 WBC 5.1 RBC 3.18 L Hgb 10.1 L Hct 29.8 L MCV 93.6 MCH 31.9 MCHC 34.0 RDW 13.9 Plt Count 78 L MPV 7.9 Prelim Diff (Auto) Slide review pending Neut % (Auto) 82.9 H Lymph % (Auto) 8.5 L [place] % (Auto) 8.0 Eos % (Auto) 0.3 Baso % (Auto) 0.3 Neut # (Auto) 4.2 Lymph # (Auto) 0.4 L [place] # (Auto) 0.4 Eos # (Auto) 0.0 Baso # (Auto) 0.0 WBC Differential . Diff Scan Auto diff confirmed Differential Comment . Platelet Estimate Low L Platelet Morphology Normal PT 10.8 INR 1.1 APTT 26.4 Sodium Potassium Chloride Carbon Dioxide Anion Gap BUN Creatinine Estimated GFR Random Glucose Calcium Nasal Screen MRSA (PCR) Mrsa detected Serum Alcohol Blood Type Blood Type Recheck Antibody Screen 08/05/18 13:52 WBC 5.2 RBC 3.38 L Hgb 11.1 L Hct 32.7 L MCV 96.9 MCH 33.0 MCHC 34.0 RDW 13.8 Plt Count 70 L MPV 7.7 Prelim Diff (Auto) Slide review pending Neut % (Auto) 87.3 H Lymph % (Auto) 3.4 L [place] % (Auto) 8.6 H Eos % (Auto) 0.4 Baso % (Auto) 0.3 Neut # (Auto) 4.6 Lymph # (Auto) 0.2 L [place] # (Auto) 0.4 Eos # (Auto) 0.0 Baso # (Auto) 0.0 WBC Differential Diff Scan Differential Comment . Platelet Estimate Platelet Morphology PT INR APTT Sodium Potassium Chloride Carbon Dioxide Anion Gap BUN Creatinine Estimated GFR Random Glucose Calcium Nasal Screen MRSA (PCR) Serum Alcohol Blood Type Blood Type Recheck Antibody Screen - Imaging Impressions Chest X-Ray 08/04/18 22:54 CONCLUSION: Possible small right effusion Tibia/Fibula X-Ray 08/04/18 22:57 CONCLUSION: No acute bony injury Abdomen/Pelvis CT 08/05/18 00:00 CONCLUSION: No acute traumatic injury in the abdomen or pelvis. Cervical Spine CT 08/05/18 00:00 CONCLUSION: No acute bony injury in the cervical spine. Chest CT 08/05/18 00:00 CONCLUSION: No acute traumatic injury in the chest. Face CT 08/05/18 00:00 CONCLUSION: Mildly displaced right orbital and maxillary fractures as described. Head CT 08/05/18 00:00 CONCLUSION: No acute intracranial injury . Lower Extremity MRI 08/05/18 08:54 CONCLUSION: 1. Diffuse subcutaneous edema. Minimal edema in the anterior tibialis muscle and the flexure hallucis longus muscle without evidence of tendinous retraction or full-thickness tear. No drainable fluid collection is identified. Assessment and Plan - Plan 57 y/o M with a history of HTN who presents to [facility] following a mechanical fall. His facial injuries include a right lateral orbital wall and supraorbital fracture is minimally displaced as well as a right orbital floor fracture which is minimally displaced. Right lateral and anterior maxillary sinus wall fractures with minimal displacement. Fractures will be managed non- operatively. Recommendations: -Soft, non-chew diet for 6 weeks -Maintain sinus precautions for the next 2 weeks (no nose blowing, sneeze with open mouth) -OK to use hydrogen peroxide and water (3 parts water, 1 part hydrogen peroxide ) to remove hemorrhagic crusting from abrasions -Bacitracin bid to facial abrasions and repaired lacerations -OK to follow-up 1 week after discharge for removal of Prolene sutures Thank you for this consultation. Please do not hesitate to contact me at with any questions or concerns. Wilton Westfall DDS, MD
--- NOTE | 2018-08-05 16:23 | MB ---
cc: Alem Flaherty DPM DATE: 08/05/2018 REASON FOR CONSULTATION: Right lower leg degloving injury. HISTORY OF PRESENT ILLNESS: The patient is a 57-year-old male who sustained a fall down an escalator on 08/04/2018 where he sustained facial lacerations as well as fractures to the face, as well as a right lower extremity degloving injury of the entire right anterior leg. The patient was seen at bedside this afternoon with some lower extremity pain. Denies any nausea, vomiting, fever, diarrhea or chills. PAST MEDICAL HISTORY: Hypertension, cirrhosis, left hydronephrosis, PVD. PHYSICAL EXAMINATION: LOWER EXTREMITY: With intact dressing. Active range of motion to digits. DP and PT diminished. Lower extremity warm to warm; ____ without a dressing. LABORATORY DATA: WBC on 08/05/2018 5.2, RBC 3.38, H and H 11.1 and 32.7. IMAGING: Right lower extremity MRI completed 08/05/2016. There are no tendon ruptures noted. There is minimal signal intensity in the tibialis anterior muscle. ASSESSMENT: Right anterior leg degloving injury. PLAN: Plan is to take the patient on 08/05/2018 for a washout; debridement, as well as a wound VAC. The patient understands that there will be a long lengthy recovery process including additional surgery and possible skin grafting. All questions were answered. Risks, benefits, pros and cons were discussed. The patient freely consented to surgical intervention. No guarantees were given or implied. Alem Flaherty DPM SR/francis/dian , 03:40 PM , 03:46 PM
[2018-08-05 19:30] LABS: Platelet Morphology Normal (Normal)
[2018-08-05] MEDS ORDERED: Bupivacaine PF 0.25% Inj 30 ML Vial ONE (20:12)
[2018-08-05] MEDS ORDERED: Naloxone Inj 0.4 MG/ML Vial IV.PUSH PRN (21:55)
[2018-08-05] MEDS ORDERED: Promethazine 25 MG Supp RECTAL PRN (21:55)
[2018-08-05] MEDS ORDERED: Misc Info for Pharmacy OTHER STA (21:55)
[2018-08-05] MEDS ORDERED: Bisacodyl 10 MG Supp RECTAL PRN (21:55)
--- NOTE | 2018-08-05 22:00 | P.BOP ---
- Preoperative Diagnosis (1) Laceration of leg (2) Abrasion, multiple sites - Postoperative Diagnosis (1) Laceration of leg (2) Abrasion, multiple sites Date of procedure: 08/05/18 Procedure: 1) Right leg irrigation and debridement 2) Right leg application of wound VAC Anesthesia: [facility]KAYLA Surgeon: Alem Flaherty DPM Estimated blood loss (mL): 5 Tourniquet time (min): 33 (right thigh at 275mmHG) Pathology: none sent Condition: stable Disposition: other (Dr Rao /Urology consulted and placed floley post op.)
[2018-08-05] MEDS ORDERED: fentaNYL Citrate Inj 100 MCG/2 ML Ampul ONE (22:24)
[2018-08-05] MEDS ORDERED: *morphine SULFATE 10 MG/ML PERIprocedure ONLY ONE (22:27)
--- NOTE | 2018-08-05 22:37 | P.OP ---
- Preoperative Diagnosis (1) Acute urinary retention (2) Unspecified urethral stricture, male, meatal (3) BXO (balanitis xerotica obliterans) - Postoperative Diagnosis (1) Acute urinary retention (2) Unspecified urethral stricture, male, meatal (3) BXO (balanitis xerotica obliterans) Date of procedure: 08/05/18 Procedure: Dilation of Urethral Meatal Stricture, Placement of Matthews Catheter. [facility] Surgeon: Cyril Resendiz MD Estimated blood loss (mL): 2 Pathology: none sent Operation and Findings: Called into OR to place a matthews catheter intra-op. Nurses pre-op and in OR unable to pass catheter past urethral meatus. Patient voiding a little urine on the operating table. Exam of the penis showed incomplete circumcision with contraction of the foreskin, and blanching of the distal foreskin and the distal glans penis compatible with BXO skin changes. The urethral meatus was severely stenotic. The external genitalia were prepped with betadine. The urethral meatal stricture was dilated with metal dilators 16 to 20 Fr. Then 5 ml of sterile lubricant was injected down the urethra. Then a 16 Fr. coude red matthews catheter was passed into the bladder with some resistance at the urethral meatus. The balloon was inflated with 10 ml of water. 900 ml of clear yellow urine was drained. Patient was under general anesthesia for this procedure.
--- NOTE | 2018-08-05 23:05 | MP ---
cc: Alem Flaherty DPM DATE OF OPERATION: 08/05/2018 SURGEON: Alem Flaherty DPM PREOPERATIVE DIAGNOSIS: Right leg laceration, degloving injury. POSTOPERATIVE DIAGNOSIS: Right leg laceration, degloving injury. PROCEDURE PERFORMED: 1. Right leg irrigation and debridement. 2. Right leg application of wound VAC. ANESTHESIOLOGIST: Manjula Robledo CRNA ANESTHESIA: General. HEMOSTASIS: Right thigh tourniquet at 275 mmHg for 33 minutes. ESTIMATED BLOOD LOSS: Less than 5 mL. MATERIALS: 2-0 Vicryl, 3-0 nylon and wound VAC. BRIEF HISTORY: The patient is a 57-year-old male who had a fall down an escalator on 08/04/2018 while intoxicated. He had a degloving injury to the right lower extremity as well as facial lacerations and facial fractures. The patient was brought to the ED and podiatry consulted. Risks, benefits, pros and cons discussed. The patient freely consented to intervention. No guarantees were given or implied. PROCEDURE IN DETAIL: The patient was brought into the operating room and placed on the operating room table in the supine position. After general anesthesia was administered, a Alvarenga was attempted to be placed x 2 by anesthesia, unsuccessful. Dr. Rao was consulted from urology to place a Alva[place]ga. The right leg was prepped, scrubbed and draped in the usual sterile aseptic manner. Attention was then directed to the right leg where necrotic nonviable tissue was sharply debrided. A culture was taken under the flap of the right leg, passed off the field for aerobic, anaerobic, Gram stain, culture and sensitivity. Flap was reflected. It was still warm, viable, relatively healthy with some bruising to the outer edges of the flap. On the distal medial aspect of the flap, the incision was pulse lavaged with 2 units of , 3 liters of saline. There was no purulence noted. The flap was then reapproximated and then sutured in place with 2-0 Vicryl and 2-0 nylon. With the flap reflected, the wound measured approximately 12 cm x 14 cm long. With the flap in place and sutured, the wound measured approximately 9 cm in width and 6 cm in length, and was approximately 1 cm in depth. Wound VAC was applied at 125 mmHg. Good suction was noted. Good seal was noted. Dry sterile dressings were applied. The patient tolerated the procedure and returned to completion and thereafter, the tourniquet was deflated with a prompt hyperemic response to digits 1 through [address] Rao from urology thereafter came in to place his Al[place]ga. The patient will be transferred to PACU for a brief period of postop monitoring afterwards and will be monitored appropriately while in-house. Alem Flaherty DPM SR/aleksandr , 10:08 PM , 10:16 PM
[2018-08-06] MEDS: Potassium Chloride Inj 10 MEQ in Sod Chloride 0.9% Inj 1,000 ML IV.CONT SCH (01:38)
[2018-08-06] MEDS ORDERED: Chlorhexidine Gluconate 2% 1 Pack (2 Cloths) TOPICAL PRN (04:00)
[2018-08-06] MEDS ORDERED: Chlorhexidine Gluconate 2% 1 Pack (2 Cloths) TOPICAL SCH (04:00)
--- NOTE | 2018-08-06 04:51 | XR ---
EXAM DATE: 08/06/2018 4:30 AM EST AGE/SEX: 57 years / Male INDICATIONS: Shortness of breath. CLINICAL DATA: This is the patient's subsequent encounter. Patient reports that signs and symptoms h ave been present for 2 days and indicates a pain score of 1/10. MEDICAL/SURGICAL HISTORY: Hypertension. Cirrhosis. None. COMPARISON: [facility] [place], CHEST 1V SINGLE AP, 08/04/2018. . FINDINGS: Borderline heart size. No focal infiltrate or significant effusion. Mild diffuse interstitial promine nce. CONCLUSION: Mild interstitial prominence. Electronically signed by: Cyril Lynn MD Board Certified Radiologist 08/06/2018 4:49 AM EST
[2018-08-06 04:52] LABS: Baso % (Auto) 0.6 % (0.0-2.0); Eos # (Auto) 0.1 th/mm3 (0.0-0.4); Eos % (Auto) 1.7 % (0.0-4.0); Hemoglobin 10.4 gm/dL (13.0-17.0); Lymph # (Auto) 0.4 th/mm3 (1.0-4.8); Lymph % (Auto) 8.4 % (9.0-44.0); Mean Corpuscular HGB Conc 34.6 % (32.0-36.0); Mean Corpuscular Hemoglobin 32.8 pg (27.0-34.0); Mean Corpuscular Volume 94.6 fL (80.0-100.0); Mean Platelet Volume 8.4 fL (7.0-11.0); Mono # (Auto) 0.4 th/mm3 (0.0-0.9); Mono % (Auto) 8.6 % (0.0-8.0); Neut # (Auto) 4.1 th/mm3 (1.8-7.7); Neut % (Auto) 80.7 % (16.0-70.0); Platelet Count 77 th/mm3 (150-450); Red Blood Count 3.17 mil/mm3 (4.50-5.90); Red Cell Distribution Width 13.8 % (11.6-17.2); White Blood Count 5.1 th/mm3 (4.0-11.0)
[2018-08-06 06:05] LABS: Albumin 2.6 g/dL (3.4-5.0); Calcium 6.8 mg/dL (8.5-10.1); Carbon Dioxide 22.5 meq/L (21.0-32.0); Potassium 4.4 meq/L (3.5-5.1); Total Protein 6.6 g/dL (6.4-8.2)
[2018-08-06 06:23] LABS: Platelet Morphology Normal (Normal)
[2018-08-06] MEDS: ceFAZolin Inj 1 GM in Sodium Chlor 0.9% Inj 100 ML IV.SIG SCH ×3 (06:27→21:01)
--- NOTE | 2018-08-06 08:12 | P.PN ---
Subjective Interval history: Trauma PTD: 2 Patient sitting up in bed. No distress noted. Patient states, "I am doing all right." "I slept like a baby last night." Patient requesting to keep Alvarenga catheter. "Normally I pee every 2-3 times an hour." Physical Exam Vital signs: Vital Signs 08/05/18 09:07 08/05/18 09:11 08/05/18 09:33 Temperature 98.9 F Pulse Rate 75 74 80 Respiratory Rate 20 18 24 Blood Pressure 111/55 L 105/55 L 106/63 Pulse Oximetry 98 90 L 95 08/05/18 10:00 08/05/18 11:00 08/05/18 12:39 Temperature 99.2 F Pulse Rate 82 82 80 Respiratory Rate 23 25 H 21 Blood Pressure 116/56 L Pulse Oximetry 100 97 98 08/05/18 16:25 08/05/18 22:13 08/05/18 22:30 Temperature 99.0 F 97.8 F Pulse Rate 70 100 H 95 H Respiratory Rate 22 20 22 Blood Pressure 120/57 L 102/52 L 105/53 L Pulse Oximetry 95 99 97 08/05/18 22:45 08/05/18 23:01 08/05/18 23:16 Temperature 98.2 F Pulse Rate 90 90 89 Respiratory Rate 25 H 20 21 Blood Pressure 104/55 L 107/58 L 116/56 L Pulse Oximetry 97 97 98 08/06/18 00:03 08/06/18 03:52 08/06/18 04:00 Temperature 98.7 F 98.5 F Pulse Rate 86 87 Respiratory Rate 20 20 16 Blood Pressure 116/54 L 103/56 L Pulse Oximetry 95 96 Intake & Output 08/05/18 08/06/18 08/06/18 18:59 06:59 18:59 Intake Total 2216.2 / 2216.2 580 / 580 Output Total 1600 / 1600 1050 / 1050 Balance 616.2 / 616.2 -470 / -470 Weight 125.5 kg 124.1 kg Intake: IV 2216.2 / 2216.2 100 / 100 KCl Inj 10 MEQ In NS Inj 1,000 1005 / 1005 ML @ 100 mls/hr IV.CONT .Q10H3M [facility] Rx#:[id number] MVI-12 Inj 10 ML Thiamine Inj 511.2 / 511.2 100 MG Folvite Inj 1 MG In NS Inj 500 ML @ 125 mls/hr IV.SIG Q24H [facility] Rx#:[id number] NS Inj 500 ML @ 1000 mls/hr IV. 500 / 500 SIG BOLUS [facility] Rx#:[id number] Ancef Inj 1 GM In NS Inj 100 ML 200 / 200 100 / 100 @ 200 mls/hr IV.SIG Q8H [facility] Rx #:[id number] Oral 480 / 480 Output: Urine 1600 / 1600 Urine Amount (Catheter) 1050 / 1050 Indwelling Urethral Catheter 1050 / 1050 Other: # Voids 1 # Incontinent Voids 2 # Urine Diapers 1 # Bowel Movements 0 Weight On Admission 113.3 kg Narrative: GENERAL: This is a 57-year-old obese male lying in bed. No distress noted. SKIN: Warm and dry. HEAD: Atraumatic. Normocephalic. EYES: PERRLA. Several scattered superficial abrasions lacerations noted to right eye area/right side of face. Some with sutures . 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 ENT: No nasal bleeding or discharge. Mucous membranes pink and moist. NECK: Trachea midline. No JVD. CARDIOVASCULAR: Regular rate and rhythm. RESPIRATORY: No accessory muscle use. Lungs are clear to auscultation. Breath sounds equal bilaterally. No distress or dyspnea. GASTROINTESTINAL: BS + x 4 quads. Abdomen soft, non-tender, nondistended. MUSCULOSKELETAL: Extremities without cyanosis, or edema. Right lower extremity wrapped in Viktor bandage with wound VAC in place with good seal. Left lower extremity with dark pigmentation noted and scattered open abrasions. + peripheral pulses x 4 extremities. Warm with good capillary refill and sensation. MAEW. NEUROLOGICAL: Awake and alert. Normal speech and pattern. - Urinary Catheter Management Indwelling Urethral Catheter Cath placed during this visit: yes Reason for continuing: Acute urinary retention Insertion date: 08/05/18 Results - Labs CBC & Chem 7: 08/06/18 04:13 08/06/18 04:13 Laboratory Results - last 24 hr 08/05/18 08/05/18 08/06/18 09:50 13:52 04:13 WBC 5.2 5.1 RBC 3.38 L 3.17 L Hgb 11.1 L 10.4 L Hct 32.7 L 30.0 L MCV 96.9 94.6 MCH 33.0 32.8 MCHC 34.0 34.6 RDW 13.8 13.8 Plt Count 70 L 77 L MPV 7.7 8.4 Prelim Diff (Auto) Slide review pending Slide review pending Neut % (Auto) 87.3 H 80.7 H Lymph % (Auto) 3.4 L 8.4 L [place] % (Auto) 8.6 H 8.6 H Eos % (Auto) 0.4 1.7 Baso % (Auto) 0.3 0.6 Neut # (Auto) 4.6 4.1 Lymph # (Auto) 0.2 L 0.4 L [place] # (Auto) 0.4 0.4 Eos # (Auto) 0.0 0.1 Baso # (Auto) 0.0 0.0 WBC Differential . . Diff Scan Auto diff confirmed Auto diff confirmed Differential Comment . . Platelet Estimate Low L Low L Platelet Morphology Normal Normal Sodium Potassium Chloride Carbon Dioxide Anion Gap BUN Creatinine Estimated GFR Random Glucose Calcium Calcium Adj for Albumin Total Bilirubin AST ALT Alkaline Phosphatase Total Protein Albumin Nasal Screen MRSA (PCR) Mrsa detected 08/06/18 04:13 WBC RBC Hgb Hct MCV MCH MCHC RDW Plt Count MPV Prelim Diff (Auto) Neut % (Auto) Lymph % (Auto) [place] % (Auto) Eos % (Auto) Baso % (Auto) Neut # (Auto) Lymph # (Auto) [place] # (Auto) Eos # (Auto) Baso # (Auto) WBC Differential Diff Scan Differential Comment Platelet Estimate Platelet Morphology Sodium 140 Potassium 4.4 Chloride 111 H D Carbon Dioxide 22.5 Anion Gap 7 BUN 25 H Creatinine 1.50 H Estimated GFR 48 L Random Glucose 128 H Calcium 6.8 L* Calcium Adj for Albumin 7.9 L Total Bilirubin 0.7 AST 31 ALT 17 Alkaline Phosphatase 89 Total Protein 6.6 Albumin 2.6 L Nasal Screen MRSA (PCR) - Imaging Impressions Lower Extremity MRI 08/05/18 08:54 CONCLUSION: 1. Diffuse subcutaneous edema. Minimal edema in the anterior tibialis muscle and the flexure hallucis longus muscle without evidence of tendinous retraction or full-thickness tear. No drainable fluid collection is identified. Chest X-Ray 08/06/18 06:00 CONCLUSION: Mild interstitial prominence. Assessment and Plan - Assessment (1) Facial bone fracture Code(s): S02.92XA - Unspecified fracture of facial bones, initial encounter for closed fracture Status: Acute (2) Laceration of leg Code(s): S81.819A - Laceration without foreign body, unspecified lower leg, initial encounter Status: Acute (3) Abrasion, multiple sites Code(s): T07.XXXA - Unspecified multiple injuries, initial encounter Status: Acute (4) Alcohol intoxication Code(s): F10.929 - Alcohol use, unspecified with intoxication, unspecified Status: Acute (5) Hypotension determined by examination Code(s): I95.9 - Hypotension, unspecified Status: Acute - Plan [place]: This is a 57-year-old male who sustained a fall. He fell down an escalator at the [place]. Apparently he missed a step, and fell down the entire flight of escalator stairs. Positive EtOH INJURIES: RIGHT Facial lacerations (5,1) White matter hypodensity -chronic and benign RIGHT orbital and maxillary sinus fx RIGHT lower extremity laceration PMHx: HTN. Cirrhosis. Left hydronephrosis. Procedures: 08/05: Dilation and coud Alvarenga placement 08/05: I&D RIGHT leg w/ wound vac placement Consults: OMFS. Podiatry. Case management. Diet: Regular SOFT diet. Tolerating p.o. well. Encourage good intake. Pulmonary: Encourage good pulmonary toileting. IS at bedside and pt encouraged to use. Rationale for use explained to patient, and verbalized understanding. PAIN Management: [place] 5-10 mg q4h. Morphine 4 mg q 4h for breakthrough pain. Activity: OOB. PT and OT ordered. (WBS?RLE) GI prophylaxis: Protonix 40 mg IV Bowel regimen: Colace. MOM. Lactulose PRN. Senna PRN. LBM: 0 DVT prophylaxis: Mechanical VTE with SCDs. Chemical management with Heparin 5000 units every 8 hours. DC Planning: Case management consulted for assistance with final discharge disposition. Emotional support provided to patient and family at bedside and plan of care discussed. Discussed with RN at bedside. Discussed pt condition and plan of care with collaborating trauma surgeon. Patient is hemodynamically stable and being managed on the med/surg floor. The trauma team will round each day, and evaluate plan of care on a daily basis. RIGHT Facial lacerations (5,1) RIGHT orbital and maxillary sinus fx OMFS consulted and assisting in management and care Supportive care Nonoperative management at this time Soft diet Sinus precautions Pain management Encourage out of bed PT and OT ordered Bowel regimen SCDs for DVT prophylaxis Wash facial laceration/sutures daily with soap and water. Pat dry. May apply bacitracin twice daily RIGHT lower extremity laceration Podiatry consulted and assisting in management and care 08/05: MRI lower extremities -no fracture. Diffuse subcu emphysema. No drainable fluid. 08/05: I&D RIGHT leg w/ wound vac Supportive care Pain management Wound VAC per podiatry Antibiotics per podiatry Encourage out of bed PT and OT ordered Await weightbearing status per podiatry Bowel regimen SCDs for DVT prophylaxis Pre-existing condition HTN Cirrhosis Left hydronephrosis PVD Enlarged prostate Vital signs every 4 hours and as needed Obtain home medications and proper doses -collaborated with bedside RN, patient states he will be receiving photographs of each of his medication bottles from a friend. Requested RN to place in medication reconciliation, so they may be restarted 08/05: Dilation and coud Alvarenga placement by urology in OR Monitor urine output closely Monitor lower extremities in light of PVD, and wound healing Consider endovascular treatment if needed Trauma surgery/vascular surgery following (1) Facial bone fracture Qualifiers: Encounter type: initial encounter Facial bone/location: unspecified facial bone Fracture type: closed Qualified Code(s): S02.92XA - Unspecified fracture of facial bones, initial encounter for closed fracture (2) Laceration of leg Qualifiers: Encounter type: initial encounter Laterality: right Qualified Code(s): S81.811A - Laceration without foreign body, right lower leg, initial encounter (4) Alcohol intoxication Qualifiers: Complication of substance-induced condition: uncomplicated Qualified Code(s) : F10.920 - Alcohol use, unspecified with intoxication, uncomplicated
[2018-08-06] MEDS: Pantoprazole Inj 40 MG Vial IV.PUSH SCH (09:22)
[2018-08-06] MEDS: Docusate Sodium 100 MG Capsule PO SCH (09:23)
[2018-08-06] MEDS: Senna/Docusate Sodium 8.6/50 MG Tablet PO SCH ×2 (09:24→21:02)
[2018-08-06] MEDS: Multivitamin Inj 10 ML, Thiamine Inj 100 MG, Folic Acid Inj 1 MG in Sodium Chlor 0.9% I... IV.SIG SCH (14:55)
--- NOTE | 2018-08-06 22:44 | P.PNPOD ---
Subjective Interval history: POD # 1 Right leg I and D and VAC placement. Physical Exam Vital signs: Vital Signs 08/05/18 22:45 08/05/18 23:01 08/05/18 23:16 Temperature 98.2 F Pulse Rate 90 90 89 Respiratory Rate 25 H 20 21 Blood Pressure 104/55 L 107/58 L 116/56 L Pulse Oximetry 97 97 98 08/06/18 00:03 08/06/18 00:26 08/06/18 03:52 Temperature 98.7 F 98.5 F Pulse Rate 86 87 Respiratory Rate 20 18 20 Blood Pressure 116/54 L 103/56 L Pulse Oximetry 95 96 08/06/18 04:00 08/06/18 08:00 08/06/18 12:00 Temperature 99.1 F 97.7 F Pulse Rate 86 88 Respiratory Rate 16 18 18 Blood Pressure 101/56 L 106/55 L Pulse Oximetry 98 97 08/06/18 16:00 Temperature 98.7 F Pulse Rate 90 Respiratory Rate 18 Blood Pressure 123/61 Pulse Oximetry 97 Intake & Output 08/06/18 08/06/18 08/07/18 06:59 18:59 06:59 Intake Total 680 / 680 820 / 820 100 / 100 Output Total 1050 / 1050 1650 / 1650 Balance -370 / -370 -830 / -830 100 / 100 Weight 124.1 kg Intake: IV 200 / 200 100 / 100 100 / 100 Ancef Inj 1 GM In NS Inj 100 ML 200 / 200 100 / 100 100 / 100 @ 200 mls/hr IV.SIG Q8H [facility] Rx #:[id number] Oral 480 / 480 720 / 720 Output: Urine 1650 / 1650 Urine Amount (Catheter) 1050 / 1050 Indwelling Urethral Catheter 1050 / 1050 Other: Date of Last Bowel Movement 08/04/18 # Bowel Movements 0 Narrative: RLE Intact VAC NVS intact ROM at digits intact Medications and Allergies Active Medications: Active Medications Acetaminophen (Tylenol) 650 mg PO Q6H PRN PRN Reason: TEMPERATURE > 102 F Hydrocodone Bitart/Acetaminophen ([place] 5/325) 1 tab PO Q4H PRN PRN Reason: Pain 1-5 Hydrocodone Bitart/Acetaminophen ([place] 5/325) 2 tab PO Q4H PRN PRN Reason: Pain 6 - 10 Last Admin: 08/06/18 20:59 Dose: 2 tab Al Hydroxide/Mg Hydroxide (Milk Of Magnesia Liq) 30 ml PO BID [facility] Last Admin: 08/06/18 21:01 Dose: Not Given Al Hydroxide/Mg Hydroxide (Milk Of Magnesia Liq) 30 ml PO Q12H PRN PRN Reason: Mild Constipation Atenolol (Tenormin) 50 mg PO DAILY [facility] Bacitracin (Baciguent Oint) 1 applicatio TOPICAL BID [facility] Last Admin: 08/06/18 21:01 Dose: 1 applicatio Bisacodyl (Dulcolax Supp) 10 mg RECTAL DAILY PRN PRN Reason: SEVERE CONSITIPATION Enalaprilat (Vasotec Inj) 1.25 mg IV.PUSH Q8H PRN PRN Reason: SBP>180, DBP>95 Heparin Sodium (Porcine) (Heparin Inj) 5,000 units SQ Q8HR [facility] Multivitamins 10 ml/ Thiamine HCl 100 mg/ Folic Acid 1 mg/Sodium Chloride 511.2 mls @ 125 mls/hr IV.SIG Q24H [facility] Stop: 08/07/18 14:06 Last Admin: 08/06/18 14:55 Dose: Not Given Cefazolin Sodium 1 gm/ Sodium (Chloride) 100 mls @ 200 mls/hr IV.SIG Q8H [facility] Last Infusion: 08/06/18 21:35 Dose: Infused Lactulose (Lactulose Liq) 30 ml PO DAILY PRN PRN Reason: SEVERE CONSITIPATION Morphine Sulfate (Morphine Inj) 4 mg IV.PUSH Q4H PRN PRN Reason: PAIN SCALE 1 TO 10 Naloxone HCl (Narcan Inj) 0.4 mg IV.PUSH UNSCH PRN PRN Reason: SEE LABEL COMMENTS Ondansetron HCl (Zofran Odt) 4 mg PO Q6H PRN PRN Reason: NAUSEA OR VOMITING Ondansetron HCl (Zofran Inj) 4 mg IV.PUSH Q6H PRN PRN Reason: NAUSEA OR VOMITING Pantoprazole Sodium (Protonix Inj) 40 mg IV.PUSH Q24H [facility] Last Admin: 08/06/18 09:22 Dose: 40 mg Promethazine HCl (Phenergan) 25 mg PO Q6H PRN PRN Reason: NAUSEA OR VOMITING Promethazine HCl (Phenergan Supp) 25 mg RECTAL Q6H PRN PRN Reason: NAUSEA OR VOMITING Senna/Docusate Sodium (Loida-Colace) 1 tab PO BID [facility] Last Admin: 08/06/18 21:02 Dose: 1 tab Sennosides (Senokot) 17.2 mg PO Q12H PRN PRN Reason: Moderate Constipation Sodium Chloride (Ns Flush) 2 ml IV.FLUSH PRN PRN PRN Reason: FLUSH AFTER USING IV ACCESS Sodium Chloride (Ns Flush) 2 ml IV.FLUSH UNSCH PRN PRN Reason: FLUSH AFTER USING IV ACCESS Sodium Chloride (Ns Flush) 2 ml IV.FLUSH BID [facility] Last Admin: 08/06/18 21:02 Dose: 2 ml Sodium Chloride (Ns Flush) 2 ml IV.FLUSH PRN PRN PRN Reason: FLUSH AFTER USING IV ACCESS Tamsulosin HCl (Flomax) 0.4 mg PO DAILY [facility] Allergies Allergy/AdvReac Type Severity Reaction Status Date / Time No Known Allergies Allergy Verified 08/04/18 22:54 Home Medications Medication Instructions Recorded Confirmed Type alfuzosin 10 mg PO DAILY 08/06/18 08/06/18 History amlodipine 10 mg PO DAILY 08/06/18 08/06/18 History atenolol 50 mg PO DAILY 08/06/18 08/06/18 History chlorthalidone 25 mg PO DAILY 08/06/18 08/06/18 History lisinopril 20 mg PO DAILY 08/06/18 08/06/18 History Results - Labs CBC & Chem 7: 08/06/18 04:13 08/06/18 04:13 Laboratory Results - last 24 hr 08/06/18 08/06/18 04:13 04:13 WBC 5.1 RBC 3.17 L Hgb 10.4 L Hct 30.0 L MCV 94.6 MCH 32.8 MCHC 34.6 RDW 13.8 Plt Count 77 L MPV 8.4 Prelim Diff (Auto) Slide review pending Neut % (Auto) 80.7 H Lymph % (Auto) 8.4 L [place] % (Auto) 8.6 H Eos % (Auto) 1.7 Baso % (Auto) 0.6 Neut # (Auto) 4.1 Lymph # (Auto) 0.4 L [place] # (Auto) 0.4 Eos # (Auto) 0.1 Baso # (Auto) 0.0 WBC Differential . Diff Scan Auto diff confirmed Differential Comment . Platelet Estimate Low L Platelet Morphology Normal Sodium 140 Potassium 4.4 Chloride 111 H D Carbon Dioxide 22.5 Anion Gap 7 BUN 25 H Creatinine 1.50 H Estimated GFR 48 L Random Glucose 128 H Calcium 6.8 L* Calcium Adj for Albumin 7.9 L Total Bilirubin 0.7 AST 31 ALT 17 Alkaline Phosphatase 89 Total Protein 6.6 Albumin 2.6 L Microbiology 08/05/18 21:12 Wound - Leg Fungal Smear - Final No fungal elements seen 08/05/18 21:12 Wound - Leg Gram Stain - Final - Imaging Impressions Chest X-Ray 08/06/18 06:00 CONCLUSION: Mild interstitial prominence. Assessment and Plan - Assessment (1) Laceration of leg Code(s): S81.819A - Laceration without foreign body, unspecified lower leg, initial encounter Status: Acute - Plan To OR on 08/07/18 WBS , right with partial WB with waker assist Possible d/c in 3-5 days and then possible skin graft in 10 -14 days Pateint will need VAC on D/C for minimum of 1 mth Patient will f/u with Dr Flaherty in [place] on d/c Dr Ontiveros with begin coverage on 08/08/18 (1) Laceration of leg Qualifiers: Encounter type: initial encounter Laterality: right Qualified Code(s): S81.811A - Laceration without foreign body, right lower leg, initial encounter
[2018-08-07] MEDS ORDERED: Chlorhexidine Gluconate 2% 1 Pack (2 Cloths) TOPICAL ONE (05:30)
[2018-08-07] MEDS ORDERED: Sodium Chlor 0.9% Inj 500 ML IV.CONT ONE (05:30)
[2018-08-07] MEDS: ceFAZolin Inj 1 GM in Sodium Chlor 0.9% Inj 100 ML IV.SIG SCH ×3 (05:35→21:08)
[2018-08-07] MEDS: Atenolol 50 MG Tablet PO SCH (08:06)
--- NOTE | 2018-08-07 08:42 | ECG ---
Date Performed: 08/07/2018 Time Performed: 05:22:02 PTAGE: 57 years EKG: Baseline artifact present Sinus rhythm with borderline 1st degree A-V block Borderline ECG NO PREVIOUS TRACING DOCTOR: Salomón Balbuena Interpretating Date/Time 08/07/2018 08:41:14
[2018-08-07] MEDS ORDERED: Bupivacaine 0.5% Inj 50 ML MDV Vial ONE (09:27)
--- NOTE | 2018-08-07 09:29 | P.PN ---
Subjective Interval history: Trauma PTD; 3 1100: In OR 1230: Sitting up in bed. No distress noted. Having lunch postoperatively. Complains of postoperative pain to left lower extremity. Physical Exam Vital signs: Vital Signs 08/06/18 12:00 08/06/18 16:00 08/06/18 20:00 Temperature 97.7 F 98.7 F 98.7 F Pulse Rate 88 90 94 H Respiratory Rate 18 18 18 Blood Pressure 106/55 L 123/61 115/59 L Pulse Oximetry 97 97 100 08/07/18 00:00 08/07/18 04:00 08/07/18 06:45 Temperature 98.6 F 98.3 F 98 F Pulse Rate 89 89 87 Respiratory Rate 18 18 18 Blood Pressure 105/51 L 116/56 L 122/60 Pulse Oximetry 95 95 98 Intake & Output 08/06/18 08/07/18 08/07/18 18:59 06:59 18:59 Intake Total 820 / 820 300 / 300 Output Total 1650 / 1650 1550 / 1550 Balance -830 / -830 -1250 / -1250 Weight 125.6 kg Intake: IV 100 / 100 100 / 100 Ancef Inj 1 GM In NS Inj 100 ML 100 / 100 100 / 100 @ 200 mls/hr IV.SIG Q8H [facility] Rx #:[id number] Oral 720 / 720 200 / 200 Output: Urine 1650 / 1650 1550 / 1550 Other: Date of Last Bowel Movement 08/04/18 08/04/18 # Bowel Movements 0 Narrative: GENERAL: This is a 57-year-old obese male lying in bed. No distress noted. SKIN: Warm and dry. HEAD: Atraumatic. Normocephalic. EYES: PERRLA. Several scattered superficial abrasions lacerations noted to right eye area/right side of face. Some with sutures . Sutures DAVEY. ENT: No nasal bleeding or discharge. Mucous membranes pink and moist. NECK: Trachea midline. No JVD. CARDIOVASCULAR: Regular rate and rhythm. RESPIRATORY: No accessory muscle use. Lungs are clear to auscultation. Breath sounds equal bilaterally. No distress or dyspnea. GASTROINTESTINAL: BS + x 4 quads. Abdomen soft, non-tender, nondistended. MUSCULOSKELETAL: Extremities without cyanosis, or edema. Right lower extremity wrapped in Viktor bandage with wound VAC in place with good seal. Left lower extremity with dark pigmentation noted and scattered open abrasions. + peripheral pulses x 4 extremities. Warm with good capillary refill and sensation. MAEW. NEUROLOGICAL: Awake and alert. Normal speech and pattern. - Urinary Catheter Management Indwelling Urethral Catheter Cath placed during this visit: yes Reason for continuing: Acute urinary retention Insertion date: 08/05/18 Results - Labs CBC & Chem 7: 08/06/18 04:13 08/06/18 04:13 Microbiology 08/05/18 21:12 Wound - Leg Fungal Smear - Final No fungal elements seen 08/05/18 21:12 Wound - Leg Gram Stain - Final Assessment and Plan - Assessment (1) Facial bone fracture Code(s): S02.92XA - Unspecified fracture of facial bones, initial encounter for closed fracture Status: Acute (2) Laceration of leg Code(s): S81.819A - Laceration without foreign body, unspecified lower leg, initial encounter Status: Acute (3) Abrasion, multiple sites Code(s): T07.XXXA - Unspecified multiple injuries, initial encounter Status: Acute (4) Alcohol intoxication Code(s): F10.929 - Alcohol use, unspecified with intoxication, unspecified Status: Acute (5) Hypotension determined by examination Code(s): I95.9 - Hypotension, unspecified Status: Acute - Plan [place]: This is a 57-year-old male who sustained a fall. He fell down an escalator at the [place]. Apparently he missed a step, and fell down the entire flight of escalator stairs. Positive EtOH INJURIES: RIGHT Facial lacerations (5,1) White matter hypodensity -chronic and benign RIGHT orbital and maxillary sinus fx RIGHT lower extremity laceration PMHx: HTN. Cirrhosis. Left hydronephrosis. Procedures: 08/05: Dilation and coud Alvarenga placement 08/05: I&D RIGHT leg w/ wound vac placement 08/07: I&D RIGHT leg w/ wound vac change Consults: OMFS. Podiatry. Case management. Diet: Regular SOFT diet. Tolerating p.o. well. Encourage good intake. Pulmonary: Encourage good pulmonary toileting. IS at bedside and pt encouraged to use. Rationale for use explained to patient, and verbalized understanding. PAIN Management: [place] 5-10 mg q4h. Morphine 4 mg q 4h for breakthrough pain. Activity: OOB. PT and OT ordered. (WBS?RLE) GI prophylaxis: Protonix 40 mg IV Bowel regimen: Colace. MOM. Lactulose PRN. Senna PRN. LBM: 0 DVT prophylaxis: Mechanical VTE with SCDs. Chemical management with Heparin 5000 units every 8 hours. DC Planning: Case management consulted for assistance with final discharge disposition. Emotional support provided to patient and family at bedside and plan of care discussed. Discussed with RN at bedside. Discussed pt condition and plan of care with collaborating trauma surgeon. Patient is hemodynamically stable and being managed on the med/surg floor. The trauma team will round each day, and evaluate plan of care on a daily basis. RIGHT Facial lacerations (5,1) RIGHT orbital and maxillary sinus fx OMFS consulted and assisting in management and care Supportive care Nonoperative management at this time Soft diet Sinus precautions Pain management Encourage out of bed PT and OT ordered Bowel regimen SCDs for DVT prophylaxis Wash facial laceration/sutures daily with soap and water. Pat dry. May apply bacitracin twice daily RIGHT lower extremity laceration Podiatry consulted and assisting in management and care 08/05: MRI lower extremities -no fracture. Diffuse subcu emphysema. No drainable fluid. 08/05: I&D RIGHT leg w/ wound vac 08/07: I&D RIGHT leg w/ wound vac change Supportive care Pain management Wound VAC per podiatry Podiatry expects DC home with wound VAC in 3-5 days Patient may need a skin graft in 2 weeks Antibiotics per podiatry Encourage out of bed PT and OT ordered Await weightbearing status per podiatry Bowel regimen SCDs for DVT prophylaxis Pre-existing condition HTN Cirrhosis Left hydronephrosis PVD Enlarged prostate Alcohol use Vital signs every 4 hours and as needed Amlodipine 10 mg QD (hold). Resume Atenolol 50 mg QD. Chlorthalidone 25 mg QD (hold). Lisinopril 20 mg qd (hold) Resume alfuzosin 10 mg QD Monitor blood pressure closely in light of hypotension at admission 08/05: Dilation and coud Alvarenga placement by urology in OR Monitor urine output closely Monitor lower extremities in light of PVD, and wound healing Consider endovascular treatment if needed Trauma surgery/vascular surgery following MVI times 3 days Discussed with patient the importance of abstaining from alcohol (1) Facial bone fracture Qualifiers: Encounter type: initial encounter Facial bone/location: unspecified facial bone Fracture type: closed Qualified Code(s): S02.92XA - Unspecified fracture of facial bones, initial encounter for closed fracture (2) Laceration of leg Qualifiers: Encounter type: initial encounter Laterality: right Qualified Code(s): S81.811A - Laceration without foreign body, right lower leg, initial encounter (4) Alcohol intoxication Qualifiers: Complication of substance-induced condition: uncomplicated Qualified Code(s) : F10.920 - Alcohol use, unspecified with intoxication, uncomplicated
[2018-08-07] MEDS ORDERED: Neomycin/Polymyxin G.U. Irrigant 1 ML Ampul ONE (09:33)
[2018-08-07] MEDS: SOD CHLORIDE 0.9% IRRIGATION SCH ×2 (10:04)
[2018-08-07] MEDS: NEOMYCIN IRRIGATION SCH ×2 (10:04)
[2018-08-07] MEDS: [UNRECOGNIZED DRUG - OTHER] IRRIGATION SCH ×2 (10:04)
[2018-08-07] MEDS: Senna/Docusate Sodium 8.6/50 MG Tablet PO SCH ×2 (10:07→21:09)
[2018-08-07] MEDS: Pantoprazole Inj 40 MG Vial IV.PUSH SCH (10:08)
[2018-08-07] MEDS ORDERED: Misc Info for Pharmacy OTHER STA (10:36)
[2018-08-07] MEDS ORDERED: Naloxone Inj 0.4 MG/ML Vial IV.PUSH PRN (10:36)
[2018-08-07] MEDS ORDERED: Bisacodyl 10 MG Supp RECTAL PRN (10:36)
[2018-08-07] MEDS ORDERED: Promethazine 25 MG Supp RECTAL PRN (10:36)
--- NOTE | 2018-08-07 10:40 | P.BOP ---
- Preoperative Diagnosis (1) Laceration of leg (2) Abrasion, multiple sites - Postoperative Diagnosis (1) Laceration of leg (2) Abrasion, multiple sites Date of procedure: 08/07/18 Procedure: 1) Right leg incision and drainage 2) Right leg application of wound VAC Anesthesia: MAKAYLA Surgeon: Alem Flaherty DPM Estimated blood loss (mL): 5 Tourniquet time (min): 0 (right thigh never inflated) Pathology: none sent (Swab right leg flap) Condition: stable Disposition: PACU
[2018-08-07] MEDS ORDERED: fentaNYL Citrate Inj 100 MCG/2 ML Ampul ONE (10:55)
[2018-08-07] MEDS: Multivitamin Inj 10 ML, Thiamine Inj 100 MG, Folic Acid Inj 1 MG in Sodium Chlor 0.9% I... IV.SIG SCH (14:45)
[2018-08-07] MEDS: Heparin - SQ 10,000 UNITS/ML Vial SQ SCH ×2 (14:46→21:10)
[2018-08-07] MEDS ORDERED: Phenylephrine/NS 1000 MCG/10ML Syringe IV.PUSH ONE (20:30)
[2018-08-07] MEDS ORDERED: Succinylcholine Inj 100 MG/5 ML Syringe IV.PUSH ONE (20:30)
[2018-08-07] MEDS ORDERED: Lidocaine PF 1% Inj 5 ML Syringe INFILTRATN ONE (20:30)
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
[2018-08-08 05:18] LABS: Baso % (Auto) 0.1 % (0.0-2.0); Hematocrit 30.5 % (39.0-51.0); Hemoglobin 10.5 gm/dL (13.0-17.0); Lymph # (Auto) 0.3 th/mm3 (1.0-4.8); Lymph % (Auto) 3.6 % (9.0-44.0); Mean Corpuscular HGB Conc 34.3 % (32.0-36.0); Mean Corpuscular Hemoglobin 32.9 pg (27.0-34.0); Mean Corpuscular Volume 95.7 fL (80.0-100.0); Mean Platelet Volume 8.7 fL (7.0-11.0); Mono # (Auto) 0.4 th/mm3 (0.0-0.9); Mono % (Auto) 4.7 % (0.0-8.0); Neut # (Auto) 8.3 th/mm3 (1.8-7.7); Neut % (Auto) 91.6 % (16.0-70.0); Platelet Count 91 th/mm3 (150-450); Red Blood Count 3.19 mil/mm3 (4.50-5.90); Red Cell Distribution Width 13.7 % (11.6-17.2); White Blood Count 9.1 th/mm3 (4.0-11.0)
[2018-08-08] MEDS: Heparin - SQ 10,000 UNITS/ML Vial SQ SCH ×3 (05:26→21:28)
[2018-08-08] MEDS: ceFAZolin Inj 1 GM in Sodium Chlor 0.9% Inj 100 ML IV.SIG SCH ×3 (05:26→21:29)
[2018-08-08 05:43] LABS: Calcium 7.5 mg/dL (8.5-10.1); Carbon Dioxide 23.9 meq/L (21.0-32.0); Potassium 4.4 meq/L (3.5-5.1)
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
[2018-08-08 08:03] LABS: Lymphocytes 6 % (9-44); Monocytes 5 % (0-8)
[2018-08-08 08:04] LABS: Platelet Morphology Normal (Normal)
[2018-08-08] MEDS ORDERED: Dextrose 50% in Water 50 ML Vial IV.PUSH PRN (09:11)
[2018-08-08] MEDS: Atenolol 50 MG Tablet PO SCH (09:49)
[2018-08-08] MEDS: Pantoprazole Inj 40 MG Vial IV.PUSH SCH (09:49)
[2018-08-08] MEDS: Lisinopril 20 MG Tablet PO SCH (09:50)
[2018-08-08] MEDS: amLODIPine 10 MG Tablet PO SCH (09:50)
[2018-08-08] MEDS: Senna/Docusate Sodium 8.6/50 MG Tablet PO SCH ×2 (09:50→21:30)
[2018-08-08] MEDS: [UNRECOGNIZED DRUG - OTHER] IRRIGATION SCH ×2 (10:02)
[2018-08-08] MEDS: NEOMYCIN IRRIGATION SCH ×2 (10:02)
[2018-08-08] MEDS: SOD CHLORIDE 0.9% IRRIGATION SCH ×2 (10:02)
[2018-08-08] MEDS: Chlorthalidone 50 MG Tablet PO SCH (11:08)
[2018-08-08] MEDS: Insulin NovoLOG Aspart Correctional Sugar Inj SQ SCH ×3 (11:49→21:48)
--- NOTE | 2018-08-08 21:27 | P.PNPOD ---
Subjective Interval history: Patient seen bedside resting comfortably postop day 1. Physical Exam Vital signs: Vital Signs 08/08/18 00:15 08/08/18 04:55 08/08/18 08:00 Temperature 97.3 F L 99.2 F 97.9 F Pulse Rate 75 74 76 Respiratory Rate 18 18 19 Blood Pressure 128/71 120/63 116/56 L Pulse Oximetry 97 97 96 08/08/18 12:00 08/08/18 16:00 Temperature 97.6 F 98.0 F Pulse Rate 77 66 Respiratory Rate 18 Blood Pressure 106/56 L 102/66 Pulse Oximetry 100 97 Intake & Output 08/08/18 08/08/18 08/09/18 06:59 18:59 06:59 Intake Total 800 / 800 100 / 100 Output Total 1250 / 1250 1200 / 1200 Balance -450 / -450 -1200 / -1200 100 / 100 Weight 127.8 kg Intake: IV 200 / 200 100 / 100 Ancef Inj 1 GM In NS Inj 100 ML 200 / 200 100 / 100 @ 200 mls/hr IV.SIG Q8H [facility] Rx #:[id number] Oral 600 / 600 Output: Urine 1250 / 1250 1200 / 1200 Wound Vac Amount 0 / 0 Right Leg 0 / 0 Other: Mode Setting Right Leg Continuous # Voids 4 Date of Last Bowel Movement 08/04/18 08/08/18 # Bowel Movements 0 Narrative: Wound VAC functioning to right lower extremity at 125 mm per mercury. Left lower extremity multiple venous stasis wounds superficial in nature with serosanguineous drainage no surrounding erythema. Brawny induration noted. Medications and Allergies Active Medications: Active Medications Acetaminophen (Tylenol) 650 mg PO Q6H PRN PRN Reason: TEMPERATURE > 102 F Hydrocodone Bitart/Acetaminophen ([place] 5/325) 1 tab PO Q4H PRN PRN Reason: Pain 1-5 Hydrocodone Bitart/Acetaminophen ([place] 5/325) 2 tab PO Q4H PRN PRN Reason: Pain 6 - 10 Last Admin: 08/08/18 14:00 Dose: 2 tab Al Hydroxide/Mg Hydroxide (Milk Of Magnesia Liq) 30 ml PO BID [facility] Last Admin: 08/08/18 09:52 Dose: 30 ml Amlodipine Besylate (Norvasc) 5 mg PO DAILY [facility] Last Admin: 02/18/19 09:50 Dose: 5 mg Atenolol (Tenormin) 50 mg PO DAILY [facility] Last Admin: 08/08/18 09:49 Dose: 50 mg Bacitracin (Baciguent Oint) 1 applicatio TOPICAL BID [facility] Last Admin: 08/08/18 09:56 Dose: 1 applicatio Bisacodyl (Dulcolax Supp) 10 mg RECTAL DAILY PRN PRN Reason: SEVERE CONSITIPATION Chlorthalidone (Hygroton) 25 mg PO DAILY [facility] Last Admin: 08/08/18 11:08 Dose: 25 mg Sodium Chloride 3,000 ml/ (Neomycin/Polymyxin 2 ml) 0 ml IRRIGATION DAILY [facility] Last Admin: 08/08/18 10:02 Dose: Not Given Dextrose (D50w Vial) 50 ml IV.PUSH UNSCH PRN PRN Reason: PER HYPOGLYCEMIA PROTOCOL Enalaprilat (Vasotec Inj) 1.25 mg IV.PUSH Q8H PRN PRN Reason: SBP>180, DBP>95 Glucagon (Glucagon Inj) 1 mg OTHER PRN PRN PRN Reason: for Hypoglycemia Protocol Heparin Sodium (Porcine) (Heparin Inj) 5,000 units SQ Q8HR [facility] Last Admin: 08/08/18 13:46 Dose: 5,000 units Cefazolin Sodium 1 gm/ Sodium (Chloride) 100 mls @ 200 mls/hr IV.SIG Q8H [facility] Last Infusion: 08/08/18 21:23 Dose: Infused Insulin Aspart (Novolog Insulin Correctional Sugar Inj) 0 unit SQ ACHS [facility]; Protocol Last Admin: 08/08/18 17:09 Dose: 3 unit Lactulose (Lactulose Liq) 30 ml PO DAILY [facility] Last Admin: 08/08/18 09:52 Dose: 30 ml Lisinopril (Prinivil) 10 mg PO DAILY [facility] Last Admin: 08/08/18 09:50 Dose: 10 mg Miscellaneous (Pill Splitter) 0 each OTHER UNSCH PRN PRN Reason: SEE LABEL COMMENTS Morphine Sulfate (Morphine Inj) 4 mg IV.PUSH Q4H PRN PRN Reason: BREAKTHROUGH PAIN Naloxone HCl (Narcan Inj) 0.4 mg IV.PUSH UNSCH PRN PRN Reason: SEE LABEL COMMENTS Naloxone HCl (Narcan Inj) 0.4 mg IV.PUSH UNSCH PRN PRN Reason: SEE LABEL COMMENTS Ondansetron HCl (Zofran Inj) 4 mg IV.PUSH Q6H PRN PRN Reason: NAUSEA OR VOMITING Ondansetron HCl (Zofran Odt) 4 mg PO Q6H PRN PRN Reason: NAUSEA OR VOMITING Pantoprazole Sodium (Protonix Inj) 40 mg IV.PUSH Q24H [facility] Last Admin: 08/08/18 09:49 Dose: 40 mg Promethazine HCl (Phenergan) 25 mg PO Q6H PRN PRN Reason: NAUSEA OR VOMITING Promethazine HCl (Phenergan Supp) 25 mg RECTAL Q6H PRN PRN Reason: NAUSEA OR VOMITING Senna/Docusate Sodium (Loida-Colace) 1 tab PO BID [facility] Last Admin: 08/08/18 09:50 Dose: 1 tab Sennosides (Senokot) 17.2 mg PO Q12H PRN PRN Reason: Moderate Constipation Sodium Chloride (Ns Flush) 2 ml IV.FLUSH UNSCH PRN PRN Reason: FLUSH AFTER USING IV ACCESS Sodium Chloride (Ns Flush) 2 ml IV.FLUSH BID [facility] Last Admin: 08/08/18 10:02 Dose: 2 ml Sodium Chloride (Ns Flush) 2 ml IV.FLUSH PRN PRN PRN Reason: FLUSH AFTER USING IV ACCESS Tamsulosin HCl (Flomax) 0.4 mg PO DAILY [facility] Last Admin: 08/08/18 09:50 Dose: 0.4 mg Allergies Allergy/AdvReac Type Severity Reaction Status Date / Time No Known Allergies Allergy Verified 08/04/18 22:54 Home Medications Medication Instructions Recorded Confirmed Type alfuzosin 10 mg PO DAILY 08/06/18 08/06/18 History amlodipine 10 mg PO DAILY 08/06/18 08/06/18 History atenolol 50 mg PO DAILY 08/06/18 08/06/18 History chlorthalidone 25 mg PO DAILY 08/06/18 08/06/18 History lisinopril 20 mg PO DAILY 08/06/18 08/06/18 History Results - Labs CBC & Chem 7: 08/08/18 04:35 08/08/18 04:36 Laboratory Results - last 24 hr 08/08/18 08/08/18 08/08/18 04:35 04:36 11:43 WBC 9.1 RBC 3.19 L Hgb 10.5 L Hct 30.5 L MCV 95.7 MCH 32.9 MCHC 34.3 RDW 13.7 Plt Count 91 L MPV 8.7 Prelim Diff (Auto) Slide review pending Neut % (Auto) 91.6 H Lymph % (Auto) 3.6 L [place] % (Auto) 4.7 Eos % (Auto) 0.0 Baso % (Auto) 0.1 Neut # (Auto) 8.3 H Lymph # (Auto) 0.3 L [place] # (Auto) 0.4 Eos # (Auto) 0.0 Baso # (Auto) 0.0 WBC Differential Manual diff final Seg Neuts % (Manual) 80 H Band Neuts % (Manual) 9 H Lymphocytes % (Manual) 6 L Monocytes % (Manual) 5 Abs Neuts (Manual) 8.1 H Differential Comment . Platelet Estimate Low L Platelet Morphology Normal Sodium 140 Potassium 4.4 Chloride 110 H Carbon Dioxide 23.9 Anion Gap 6 BUN 20 H Creatinine 1.33 H Estimated GFR 55 L POC Glucose 242 H Random Glucose 210 H Calcium 7.5 L 08/08/18 16:38 WBC RBC Hgb Hct MCV MCH MCHC RDW Plt Count MPV Prelim Diff (Auto) Neut % (Auto) Lymph % (Auto) [place] % (Auto) Eos % (Auto) Baso % (Auto) Neut # (Auto) Lymph # (Auto) [place] # (Auto) Eos # (Auto) Baso # (Auto) WBC Differential Seg Neuts % (Manual) Band Neuts % (Manual) Lymphocytes % (Manual) Monocytes % (Manual) Abs Neuts (Manual) Differential Comment Platelet Estimate Platelet Morphology Sodium Potassium Chloride Carbon Dioxide Anion Gap BUN Creatinine Estimated GFR POC Glucose 226 H Random Glucose Calcium Microbiology 08/07/18 10:04 Wound - Leg Acid Fast Bacilli Smear - Final No acid fast bacilli seen 08/05/18 21:12 Wound - Leg Acid Fast Bacilli Smear - Final No acid fast bacilli seen 08/07/18 10:04 Wound - Leg Fungal Smear - Final No fungal elements seen 08/07/18 10:04 Wound - Leg Gram Stain - Final 08/07/18 10:04 Wound - Leg Wound Culture - Preliminary No growth in 24 hours 08/05/18 21:12 Wound - Leg Gram Stain - Final 08/05/18 21:12 Wound - Leg Wound Culture - Final Pseudomonas luteola Assessment and Plan - Assessment (1) Laceration of leg Code(s): S81.819A - Laceration without foreign body, unspecified lower leg, initial encounter Status: Acute - Plan 57-year male status post surgical intervention right lower extremity by Dr. Flaherty Wound care nurse consult placed to manage right lower extremity wound VAC as well as venous stasis ulcerations to left leg Will order ABIs to evaluate arterial flow Will coordinate wound VAC changes with wound care to evaluate on Wednesday (1) Laceration of leg Qualifiers: Encounter type: initial encounter Laterality: right Qualified Code(s): S81.811A - Laceration without foreign body, right lower leg, initial encounter
[2018-08-09] MEDS: ceFAZolin Inj 1 GM in Sodium Chlor 0.9% Inj 100 ML IV.SIG SCH ×4 (06:24→21:03)
[2018-08-09] MEDS: Heparin - SQ 10,000 UNITS/ML Vial SQ SCH ×4 (06:24→21:02)
[2018-08-09] MEDS ORDERED: Bisacodyl 10 MG Supp RECTAL ONE (07:39)
[2018-08-09] MEDS: Insulin NovoLOG Aspart Correctional Sugar Inj SQ SCH ×4 (09:10→21:02)
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
[2018-08-09] MEDS: Atenolol 50 MG Tablet PO SCH (12:57)
[2018-08-09] MEDS: Chlorthalidone 50 MG Tablet PO SCH (12:57)
[2018-08-09] MEDS: Lisinopril 20 MG Tablet PO SCH (12:58)
[2018-08-09] MEDS: amLODIPine 10 MG Tablet PO SCH (12:58)
[2018-08-09] MEDS: Senna/Docusate Sodium 8.6/50 MG Tablet PO SCH ×2 (12:58→21:00)
[2018-08-09] MEDS: Pantoprazole Inj 40 MG Vial IV.PUSH SCH (12:59)
[2018-08-09] MEDS: [UNRECOGNIZED DRUG - OTHER] IRRIGATION SCH ×2 (12:59)
[2018-08-09] MEDS: SOD CHLORIDE 0.9% IRRIGATION SCH ×2 (12:59)
[2018-08-09] MEDS: NEOMYCIN IRRIGATION SCH ×2 (12:59)
--- NOTE | 2018-08-09 14:39 | ECHRPT ---
EXAM DATE: 08/09/2018 11:16 AM EST AGE/SEX: 57 years / Male INDICATIONS: Right lower extremity wound CLINICAL DATA: This is the patient's initial encounter. Patient reports that signs and symptoms have been present for 2 days and indicates a pain score of 2/10. MEDICAL/SURGICAL HISTORY: . enlarged prostate, hypertension, MDRO, venous stasis ulcerations . right lower extremity I&D with wound VAC COMPARISON: No prior exams available for comparison. TECHNIQUE: Four-cuff ankle and brachial pressures were obtained. Pulse cuff waveform tracings of the ankles were recorded, and ankle-brachial indices were calculated. PRESSURES (mmHg): Brachial (arm) : RIGHT: 90, LEFT: IV SITE Ankle : RIGHT: 133, LEFT: 128 DAHLIA : RIGHT: 1.48, LEFT: 1.42 TBI : RIGHT: 0.58, LEFT: 1.01 FINDINGS: Pulsed-Cuff Waveform: Nearly flatline waveforms in the right toe. Other: None. CONCLUSION: 1. Supernormal bilateral lower extremity ABIs. Findings reflect calcified noncompressible arteries w hich significantly limit utility of ankle-brachial indices for evaluation of peripheral arterial dise ase. Consider CT angiography if there is continued significant clinical concern. 2. Normal range bilateral toe brachial indices although there is significantly dampened waveforms in the right toe. Suspect some abnormal of small vessel disease on the right. Electronically signed by: Nas Bar MD Board Certified Radiologist 08/09/2018 2:38 PM EST
[2018-08-10] MEDS: Heparin - SQ 10,000 UNITS/ML Vial SQ SCH ×3 (05:58→21:18)
[2018-08-10] MEDS: ceFAZolin Inj 1 GM in Sodium Chlor 0.9% Inj 100 ML IV.SIG SCH ×3 (05:59→21:19)
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
[2018-08-10] MEDS: Insulin NovoLOG Aspart Correctional Sugar Inj SQ SCH ×4 (08:16→22:29)
[2018-08-10] MEDS: amLODIPine 10 MG Tablet PO SCH (10:37)
[2018-08-10] MEDS: [UNRECOGNIZED DRUG - OTHER] IRRIGATION SCH ×2 (10:39)
[2018-08-10] MEDS: SOD CHLORIDE 0.9% IRRIGATION SCH ×2 (10:39)
[2018-08-10] MEDS: Lisinopril 20 MG Tablet PO SCH (10:39)
[2018-08-10] MEDS: NEOMYCIN IRRIGATION SCH ×2 (10:39)
[2018-08-10] MEDS: Atenolol 50 MG Tablet PO SCH (10:39)
[2018-08-10] MEDS: Senna/Docusate Sodium 8.6/50 MG Tablet PO SCH ×2 (10:40→21:18)
[2018-08-10] MEDS: Chlorthalidone 50 MG Tablet PO SCH (12:03)
--- NOTE | 2018-08-10 16:49 | P.PNWCN ---
Wound Care Nurse Consult Description: Wound care consulted for wound vac management to right wound vac and left lower extremity venous stasis ulcerations by Dr. Ontiveros. Communicated with: Spoke with bedside nurse Thomas Camargo and Dr. Ontiveros. Recommendation: Please leave current dressing in place to right leg until Podiatry ( Dr. Ontiveros ) assesses wound today 08/10/18. Follow podiatry orders. Left posterior calf: 1. Cleanse wound with normal saline and pat dry. 2. Apply Adaptic ( oil emulsion) gauze to wound bed. 3. Cover with ABD pad and rolled gauze. 4. Change daily and PRN if saturated or dislodged. Additional information: Patient seen today by inpatient wound care. Patient transitioned to bed and wound vac dressing removed to right lower extremity. Wound cleansed with normal saline and patted dry. Adaptic ( Oil Emulsion) gauze applied to open wound bed. ABD applied and covered with rolled gauze. Elastic gauze then applied to secure dressing. Dr. Ontiveros wound like to assess wound later in the day. Please follow podiatry's orders. Attention was then placed to the left posterior calf. Ulcer noted and measures 4.3 x 5.5 x 0.1 cm. Wound bed was pink and painful. Irregular shaped borders. Wound cleansed with normal saline and patted dry. Adaptic ( Oil Emulsion) Gauze then applied to wound bed. Covered with ABD pad and then secured with rolled gauze. Multiple scabbed over areas to anterior left leg noted and left open to air. Recommendations given to bedside nurse. Dr. Ontiveros currently in OR will assess patient after. Wound/Pressure Injury - Patient Status Premedicated for Pain Prior to Dressing Change: No (Not Needed) - Wound Right Anterior [place] Wound Type: Traumatic Wound Is This a Chronic Wound: No Requested from Provider a Wound Care Consult: Yes (Patient seen today by wound care. ) Length (cm): 10.5 Width (cm): 15 Depth (cm): 0.6 (~0.6 cm at deepest) Wound Bed Appearance: Red, White Wound Bed Appearance: ~10% white tissue and ~90% Red Tissue noted. Surrounding Tissue Appearance: Blanched/Dull Surrounding Tissue Temperature: Warm Drainage Description: Sanguinous Drainage Amount: Minimal Drainage Odor: No Odor Dressing Status: Changed Cleansing Solution: Saline Primary Dressing: Adaptic gauze then ABD pad then rolled Gauze Cover Dressing: Elastic Bandage Wound Dressing Change Date: 08/10/18 Wound Margin Description: Irregular borders Left Posterior Calf Ulcer Wound Assessment: Ongoing Is This a Chronic Wound: Yes Requested from Provider a Wound Care Consult: Yes (Patient seen today by wound care nurse.) Length (cm): 4.3 Width (cm): 5.5 Depth (cm): 0.1 (~0.1cm) Wound Bed Appearance: [place] Wound Bed Appearance: ~100% pink tissue Surrounding Tissue Appearance: Blanched/Dull Surrounding Tissue Temperature: Warm Drainage Description: Serosanguinous Drainage Amount: Scant Drainage Odor: No Odor Dressing Status: Changed Cleansing Solution: Saline Primary Dressing: Adaptic gauze then ABD pad Cover Dressing: Gauze Roll/Wrap Tape Type: Transparent Wound Dressing Change Date: 08/10/18 Wound Margin Description: Irregular borders
[2018-08-11 03:38] LABS: Bacteria,Urine Rare /hpf; Bilirubin,Urine Negative (Negative); Clarity,Urine Hazy (Clear); Color,Urine Yellow (Yellw/Straw); Glucose,Urine (UA) Negative (Negative); Leukocyte Esterase,Urine Large (Negative); Mucus,Urine Few /lpf (Occasional); Nitrite,Urine Positive (Negative); Squamous Epithelial Cell,Urine <1 /hpf (0-5)
[2018-08-11] MEDS: ceFAZolin Inj 1 GM in Sodium Chlor 0.9% Inj 100 ML IV.SIG SCH ×3 (06:46→22:00)
[2018-08-11] MEDS: Heparin - SQ 10,000 UNITS/ML Vial SQ SCH ×3 (06:47→22:00)
[2018-08-11] MEDS: Lisinopril 20 MG Tablet PO SCH (09:07)
[2018-08-11] MEDS: Atenolol 50 MG Tablet PO SCH (09:07)
[2018-08-11] MEDS: amLODIPine 10 MG Tablet PO SCH (09:07)
[2018-08-11] MEDS: Senna/Docusate Sodium 8.6/50 MG Tablet PO SCH ×2 (09:08→22:01)
[2018-08-11] MEDS: Chlorthalidone 50 MG Tablet PO SCH (09:16)
[2018-08-11] MEDS: Insulin NovoLOG Aspart Correctional Sugar Inj SQ SCH ×4 (09:29→22:01)
[2018-08-11] MEDS: [UNRECOGNIZED DRUG - OTHER] IRRIGATION SCH ×2 (09:31)
[2018-08-11] MEDS: SOD CHLORIDE 0.9% IRRIGATION SCH ×2 (09:31)
[2018-08-11] MEDS: NEOMYCIN IRRIGATION SCH ×2 (09:31)
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
--- NOTE | 2018-08-11 19:29 | P.PNPOD ---
Subjective Interval history: Patient seen bedside. Reports minimal pain to bilateral lower extremity. Physical Exam Vital signs: Vital Signs 08/10/18 22:35 08/11/18 00:25 08/11/18 04:50 Temperature 98.2 F 98.4 F 98.8 F Pulse Rate 69 67 74 Respiratory Rate 18 18 17 Blood Pressure 109/57 L 101/55 L 101/61 Pulse Oximetry 97 96 96 08/11/18 08:00 08/11/18 12:20 08/11/18 16:00 Temperature 99.5 F 98.6 F 97.3 F L Pulse Rate 66 75 77 Respiratory Rate 18 17 15 Blood Pressure 105/57 L 105/51 L 112/63 Pulse Oximetry 97 96 Intake & Output 08/11/18 08/11/18 08/12/18 06:59 18:59 06:59 Intake Total 1100 / 1100 550 / 550 Output Total 1949 Balance -850 / -850 -1500 / -1500 Weight 126.8 kg Intake: IV 100 / 100 200 / 200 Ancef Inj 1 GM In NS Inj 100 ML 100 / 100 200 / 200 @ 200 mls/hr IV.SIG Q8H [facility] Rx #:[id number] Oral 1000 / 1000 350 / 350 Output: Urine 700 / 700 Urine Amount (Catheter) 1949 1350 / 1350 Indwelling Urethral Catheter 1949 1350 / 1350 Other: Date of Last Bowel Movement 08/09/18 08/09/18 # Bowel Movements 0 Narrative: Right leg wound with exposed muscle. Eschar present. Granular base. Sutures present with skin intact. No clinical signs of infection. Left leg venous stasis wounds present to posterior calf with venous stasis dermatitis. No clinical signs of infection. Medications and Allergies Active Medications: Active Medications Acetaminophen (Tylenol) 650 mg PO Q6H PRN PRN Reason: TEMPERATURE > 102 F Hydrocodone Bitart/Acetaminophen ([place] 5/325) 1 tab PO Q4H PRN PRN Reason: Pain 1-5 Hydrocodone Bitart/Acetaminophen ([place] 5/325) 2 tab PO Q4H PRN PRN Reason: Pain 6 - 10 Last Admin: 08/11/18 18:32 Dose: 2 tab Al Hydroxide/Mg Hydroxide (Milk Of Magnesia Liq) 30 ml PO BID [facility] Last Admin: 08/11/18 09:08 Dose: 30 ml Amlodipine Besylate (Norvasc) 5 mg PO DAILY [facility] Last Admin: 08/11/18 09:07 Dose: 5 mg Atenolol (Tenormin) 50 mg PO DAILY [facility] Last Admin: 08/11/18 09:07 Dose: 50 mg Bacitracin (Baciguent Oint) 1 applicatio TOPICAL BID [facility] Last Admin: 08/11/18 09:22 Dose: 1 applicatio Bisacodyl (Dulcolax Supp) 10 mg RECTAL DAILY PRN PRN Reason: SEVERE CONSITIPATION Chlorthalidone (Hygroton) 25 mg PO DAILY [facility] Last Admin: 08/11/18 09:16 Dose: 25 mg Sodium Chloride 3,000 ml/ (Neomycin/Polymyxin 2 ml) 0 ml IRRIGATION DAILY [facility] Last Admin: 08/11/18 09:31 Dose: Not Given Dextrose (D50w Vial) 50 ml IV.PUSH UNSCH PRN PRN Reason: PER HYPOGLYCEMIA PROTOCOL Enalaprilat (Vasotec Inj) 1.25 mg IV.PUSH Q8H PRN PRN Reason: SBP>180, DBP>95 Glucagon (Glucagon Inj) 1 mg OTHER PRN PRN PRN Reason: for Hypoglycemia Protocol Heparin Sodium (Porcine) (Heparin Inj) 5,000 units SQ Q8HR [facility] Last Admin: 08/11/18 14:15 Dose: 5,000 units Cefazolin Sodium 1 gm/ Sodium (Chloride) 100 mls @ 200 mls/hr IV.SIG Q8H [facility] Last Infusion: 08/11/18 15:14 Dose: Infused Insulin Aspart (Novolog Insulin Correctional Sugar Inj) 0 unit SQ ACHS [facility]; Protocol Last Admin: 08/11/18 18:31 Dose: Not Given Lactulose (Lactulose Liq) 30 ml PO DAILY [facility] Last Admin: 08/11/18 09:08 Dose: 30 ml Lisinopril (Prinivil) 10 mg PO DAILY [facility] Last Admin: 08/11/18 09:07 Dose: 10 mg Miscellaneous (Pill Splitter) 0 each OTHER UNSCH PRN PRN Reason: SEE LABEL COMMENTS Morphine Sulfate (Morphine Inj) 4 mg IV.PUSH Q4H PRN PRN Reason: BREAKTHROUGH PAIN Naloxone HCl (Narcan Inj) 0.4 mg IV.PUSH UNSCH PRN PRN Reason: SEE LABEL COMMENTS Naloxone HCl (Narcan Inj) 0.4 mg IV.PUSH UNSCH PRN PRN Reason: SEE LABEL COMMENTS Ondansetron HCl (Zofran Inj) 4 mg IV.PUSH Q6H PRN PRN Reason: NAUSEA OR VOMITING Ondansetron HCl (Zofran Odt) 4 mg PO Q6H PRN PRN Reason: NAUSEA OR VOMITING Pantoprazole Sodium (Protonix) 40 mg PO DAILY [facility] Last Admin: 08/11/18 09:07 Dose: 40 mg Promethazine HCl (Phenergan) 25 mg PO Q6H PRN PRN Reason: NAUSEA OR VOMITING Promethazine HCl (Phenergan Supp) 25 mg RECTAL Q6H PRN PRN Reason: NAUSEA OR VOMITING Senna/Docusate Sodium (Loida-Colace) 1 tab PO BID [facility] Last Admin: 08/11/18 09:08 Dose: 1 tab Sennosides (Senokot) 17.2 mg PO Q12H PRN PRN Reason: Moderate Constipation Sodium Chloride (Ns Flush) 2 ml IV.FLUSH UNSCH PRN PRN Reason: FLUSH AFTER USING IV ACCESS Sodium Chloride (Ns Flush) 2 ml IV.FLUSH BID [facility] Last Admin: 08/11/18 09:31 Dose: 2 ml Sodium Chloride (Ns Flush) 2 ml IV.FLUSH PRN PRN PRN Reason: FLUSH AFTER USING IV ACCESS Tamsulosin HCl (Flomax) 0.4 mg PO DAILY [facility] Last Admin: 08/11/18 09:07 Dose: 0.4 mg Allergies Allergy/AdvReac Type Severity Reaction Status Date / Time No Known Allergies Allergy Verified 08/04/18 22:54 Home Medications Medication Instructions Recorded Confirmed Type alfuzosin 10 mg PO DAILY 08/06/18 08/06/18 History amlodipine 10 mg PO DAILY 08/06/18 08/06/18 History atenolol 50 mg PO DAILY 08/06/18 08/06/18 History chlorthalidone 25 mg PO DAILY 08/06/18 08/06/18 History lisinopril 20 mg PO DAILY 08/06/18 08/06/18 History Results - Labs CBC & Chem 7: 08/08/18 04:35 08/08/18 04:36 Laboratory Results - last 24 hr 08/10/18 08/11/18 08/11/18 22:28 02:51 08:08 POC Glucose 146 H 140 H Urine Color Yellow Urine Clarity Hazy H Urine pH 7.0 Ur Specific [place] 1.010 Urine Protein Negative Urine Glucose (UA) Negative Urine Ketones Negative Urine Occult Blood Small H Urine Nitrate Positive H Urine Bilirubin Negative Urine Urobilinogen Less than 2 Ur Leukocyte Esterase Large H Urine RBC 7 H Urine WBC 131 H Ur Squamous Epith Cells <1 Urine Bacteria Rare H Urine Mucus Few H Micro UA Comment Cath-culture ind Ur Microscopic Review Not Reportable Urine Culture Comments Cath-cult indicated 08/11/18 08/11/18 08/11/18 09:06 12:00 17:14 POC Glucose 166 H 132 H 118 H Urine Color Urine Clarity Urine pH Ur Specific [place] Urine Protein Urine Glucose (UA) Urine Ketones Urine Occult Blood Urine Nitrate Urine Bilirubin Urine Urobilinogen Ur Leukocyte Esterase Urine RBC Urine WBC Ur Squamous Epith Cells Urine Bacteria Urine Mucus Micro UA Comment Ur Microscopic Review Urine Culture Comments Assessment and Plan - Assessment (1) Laceration of leg Code(s): S81.819A - Laceration without foreign body, unspecified lower leg, initial encounter Status: Acute - Plan 57-year male status post surgical intervention right lower extremity by Dr. Flaherty Patient to OR with Dr. Encarnacion tomorrow for graft placement, debridement irrigation right lower extremity Lower extremity to be dressed with Maxorb AG to ulceration sites followed by Viktor compression Do not change dressing to right lower extremity at this time (1) Laceration of leg Qualifiers: Encounter type: initial encounter Laterality: right Qualified Code(s): S81.811A - Laceration without foreign body, right lower leg, initial encounter
--- NOTE | 2018-08-11 19:52 | CT ---
EXAM DATE: 08/11/2018 7:29 PM EST AGE/SEX: 57 years / Male INDICATIONS: Peripheral vascular disease in both legs. Gangrene toe. CLINICAL DATA: This is the patient's initial encounter. Patient reports that signs and symptoms have been present for 1 day and indicates a pain score of 3/10. MEDICAL/SURGICAL HISTORY: Hypertension. None. RADIATION DOSE: 6.91 CTDI (mGy) COMPARISON: No prior exams available for comparison. TECHNIQUE: Volumetric scanning was performed using a multi-row detector CT scanner during bolus infu agnieszka of 98 ml Omnipaque 350 (iohexol) nonionic water-soluble contrast as a single exam dose. The d harshad was post processed with a variety of visualization algorithms including full volume maximum inten sity projection, multi-planar sliding thin slab reformation, curved planar reformation, and surface r endering techniques. Using automated exposure control and adjustment of the mA and/or kV according t o patient size, radiation dose was kept as low as reasonably achievable to obtain optimal diagnostic quality images. DICOM format image data is available electronically for review and comparison. FINDINGS: Abdominal aorta: The abdominal aorta is small without aneurysmal dilatation Minimal atherosclerotic calcification is seen origin of the celiac and SMA which have a common trunk. Minimal calcific plaque is seen at the origin of the right renal artery borderline significant for s tenosis although kidney is of normal size Minimal calcification origin of the left renal artery probably not hemodynamically significant. Distal aorta is unremarkable Right lower extremity: The right common iliac and external iliac and common femoral are widely patent . The right superficial femoral artery is patent. The profunda is small. Popliteal artery is widely p atent with a three-vessel trifurcation is identified. Moderate calcific vascular disease is present b elow the trifurcation with minimal trifurcation breakup. The posterior tibial artery and anterior shani tebral artery provide straight line runoff to the foot. There is a plantar arch evident. Left lower extremity: The left common iliac, external and common femoral patent. The superficial femo ral artery is patent. The profunda is small. The popliteal artery is patent with a three-vessel trifu rcation identified are large tibial peroneal trunk a small anterior tibial artery. The posterior tibi al artery provides the plantar arch. The anterior tibial artery and peroneal artery do not make it to the foot. Source data: Liver is small shrunken and nodular. Gallbladder surgically absent. Spleen is prominent with a patent portal vein. Minimal mesenteric adenopathy is present Small shrunken left kidney, probably not providing much function. The right kidney is normal in size. Stenosis of the right renal artery is probably hemodynamically significant. The distal aorta is smal l. Pelvic contents show a bladder decompressed by a Alvarenga with what looks like a large mass from 6:00 and 11:00 in the bladder. Correlation is suggested. CONCLUSION: 1. Reasonable inflow to both lower extremities although the aorta is small. 2. There is no inflow stenosis to either leg with normal ABIs at the ankle TBI on the right suggest abnormality in the plantar arch. 3. Abnormal appearance to the bladder. Bladder is partially decompressed by a Alvarenga and is difficult to evaluate correlation suggested. Electronically signed by: Josue Mireles MD Board Certified Radiologist 08/11/2018 7:51 PM EST
[2018-08-11] MEDS: Morphine Inj 4 MG/ML Vial IV.PUSH PRN (21:59)
[2018-08-12] MEDS: Morphine Inj 4 MG/ML Vial IV.PUSH PRN ×2 (05:47→12:13)
[2018-08-12] MEDS: ceFAZolin Inj 1 GM in Sodium Chlor 0.9% Inj 100 ML IV.SIG SCH ×3 (06:00→22:25)
[2018-08-12] MEDS: Heparin - SQ 10,000 UNITS/ML Vial SQ SCH ×3 (07:48→22:58)
[2018-08-12] MEDS ORDERED: Chlorhexidine Gluconate 2% 1 Pack (2 Cloths) TOPICAL ONE (08:34)
[2018-08-12] MEDS ORDERED: Metoprolol Tartrate 25 MG Tablet PO ONE (08:34)
[2018-08-12] MEDS ORDERED: Sodium Chlor 0.9% Inj 500 ML IV.SIG SCH (09:00)
[2018-08-12] MEDS: Insulin NovoLOG Aspart Correctional Sugar Inj SQ SCH ×4 (09:39→20:13)
[2018-08-12] MEDS: Chlorthalidone 50 MG Tablet PO SCH (09:41)
[2018-08-12] MEDS: amLODIPine 10 MG Tablet PO SCH (09:41)
[2018-08-12] MEDS: Lisinopril 20 MG Tablet PO SCH (09:42)
[2018-08-12] MEDS: Senna/Docusate Sodium 8.6/50 MG Tablet PO SCH ×2 (09:42→20:14)
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
[2018-08-12] MEDS: SOD CHLORIDE 0.9% IRRIGATION SCH ×2 (12:32)
[2018-08-12] MEDS: [UNRECOGNIZED DRUG - OTHER] IRRIGATION SCH ×2 (12:32)
[2018-08-12] MEDS: NEOMYCIN IRRIGATION SCH ×2 (12:32)
[2018-08-12] MEDS: Atenolol 50 MG Tablet PO SCH (19:50)
--- NOTE | 2018-08-12 22:15 | P.BOP ---
- Preoperative Diagnosis (1) Ulcer of right lower extremity with necrosis of muscle - Postoperative Diagnosis (1) Ulcer of right lower extremity with necrosis of muscle Date of procedure: 08/12/18 Procedure: 1. Debridement of ulcer right lower leg with graft placement Excisional debridement performed of right lower anterior leg with #15 blade, rongeur, and curette of all fibrotic material down to level of healthy bleeding subcutaneous tissue. Neox graft 8x3cm x 2 applied and sutured into place with 3- 0 nylon, followed by adaptic and application of wound vac to right lower extremity set at 125mmHg medium continuous setting. No tourniquet utilized. DISPOSITION: Weightbearing as tolerated right lower extremity in surgical shoe Surgical shoe ordered Maintain wound vac He will have wound vac on until Wednesday. Will assess graft to see if wound vac must be continued vs compression dressings per home health I expect graft to adhere well in a few days, so patient will likely need home health orders for weekly dressing changes as follows: adaptic over graft, 4x4, abd, cast padding from toes to below knee, and lynda bandage with mild compression from toes to knee. Implants: n/a Anesthesia: local (10mL 0.25% marcaine plain) Surgeon: Mitchell Encarnacion DPM [employer] Worker: staff Estimated blood loss (mL): 20 Pathology: none sent Condition: stable Disposition: PACU
[2018-08-12] MEDS ORDERED: Bupivacaine PF 0.25% Inj 30 ML Vial ONE (22:17)
[2018-08-13] MEDS ORDERED: fentaNYL Citrate Inj 100 MCG/2 ML Ampul ONE
[2018-08-13] MEDS: Morphine Inj 4 MG/ML Vial IV.PUSH PRN ×3 (01:49→22:56)
[2018-08-13] MEDS: ceFAZolin Inj 1 GM in Sodium Chlor 0.9% Inj 100 ML IV.SIG SCH (04:59)
[2018-08-13] MEDS: Heparin - SQ 10,000 UNITS/ML Vial SQ SCH ×3 (04:59→22:50)
[2018-08-13 05:19] LABS: Baso % (Auto) 0.2 % (0.0-2.0); Eos # (Auto) 0.1 th/mm3 (0.0-0.4); Eos % (Auto) 0.4 % (0.0-4.0); Hematocrit 30.6 % (39.0-51.0); Hemoglobin 10.4 gm/dL (13.0-17.0); Lymph # (Auto) 0.7 th/mm3 (1.0-4.8); Lymph % (Auto) 3.9 % (9.0-44.0); Mean Corpuscular HGB Conc 33.9 % (32.0-36.0); Mean Corpuscular Hemoglobin 31.2 pg (27.0-34.0); Mean Corpuscular Volume 91.8 fL (80.0-100.0); Mean Platelet Volume 7.4 fL (7.0-11.0); Mono # (Auto) 1.3 th/mm3 (0.0-0.9); Mono % (Auto) 7.1 % (0.0-8.0); Neut # (Auto) 16.5 th/mm3 (1.8-7.7); Neut % (Auto) 88.4 % (16.0-70.0); Platelet Count 152 th/mm3 (150-450); Red Blood Count 3.33 mil/mm3 (4.50-5.90); Red Cell Distribution Width 13.9 % (11.6-17.2); White Blood Count 18.6 th/mm3 (4.0-11.0)
[2018-08-13 05:48] LABS: Calcium 8.2 mg/dL (8.5-10.1); Carbon Dioxide 27.2 meq/L (21.0-32.0)
[2018-08-13] MEDS ORDERED: levoFLOXacin 500 MG Tablet PO SCH (07:00)
[2018-08-13] MEDS: Senna/Docusate Sodium 8.6/50 MG Tablet PO SCH ×2 (09:44→20:21)
[2018-08-13] MEDS: amLODIPine 10 MG Tablet PO SCH (09:45)
[2018-08-13] MEDS: Lisinopril 20 MG Tablet PO SCH (09:45)
[2018-08-13] MEDS: Chlorthalidone 50 MG Tablet PO SCH (09:45)
[2018-08-13] MEDS: Atenolol 50 MG Tablet PO SCH (09:45)
[2018-08-13] MEDS: Insulin NovoLOG Aspart Correctional Sugar Inj SQ SCH ×4 (09:52→22:51)
[2018-08-13] MEDS ORDERED: Sodium Chlor 0.9% Inj 500 ML IV.SIG ONE (10:59)
--- NOTE | 2018-08-13 10:59 | P.PN ---
Subjective Interval history: Pain controlled Hypotensive this AM- BP meds held by RN. Patient denies dizziness T-max overnight 102.6 Physical Exam Vital signs: Vital Signs 08/12/18 12:00 08/12/18 12:15 08/12/18 16:00 Temperature 98.5 F 102.6 F H Pulse Rate 75 87 Respiratory Rate 18 15 14 Blood Pressure 112/56 L 143/64 H Pulse Oximetry 96 97 08/12/18 17:05 08/12/18 19:08 08/12/18 22:07 Temperature 99.4 F 98.8 F Pulse Rate 76 78 Respiratory Rate 15 18 22 Blood Pressure 101/53 L 137/66 Pulse Oximetry 95 100 08/12/18 22:15 08/12/18 23:50 08/13/18 00:00 Temperature 99.2 F Pulse Rate 75 78 72 Respiratory Rate 21 22 16 Blood Pressure 120/75 114/57 L 99/55 L Pulse Oximetry 99 99 100 08/13/18 00:14 08/13/18 00:15 08/13/18 00:30 Temperature 98.9 F Pulse Rate 69 73 Respiratory Rate 15 19 Blood Pressure 98/55 L 105/59 L Pulse Oximetry 100 100 96 08/13/18 00:45 08/13/18 00:57 08/13/18 04:27 Temperature 97.7 F 99.3 F Pulse Rate 75 78 81 Respiratory Rate 17 18 18 Blood Pressure 116/64 109/59 L 103/54 L Pulse Oximetry 95 97 96 08/13/18 08:00 08/13/18 08:40 Temperature 97.9 F Pulse Rate 85 Respiratory Rate 18 Blood Pressure 88/43 L 110/60 Pulse Oximetry 94 L Intake & Output 08/12/18 08/13/18 08/13/18 18:59 06:59 18:59 Intake Total 200 / 200 1935 / 1935 Output Total 1350 / 1350 1235 / 1235 Balance -1150 / -1150 700 / 700 Weight 123.7 kg Intake: IV 200 / 200 200 / 200 Ancef Inj 1 GM In NS Inj 100 ML 200 / 200 200 / 200 @ 200 mls/hr IV.SIG Q8H [facility] Rx #:[id number] Oral 0 / 0 735 / 735 Anesthesia Amount 1000 / 1000 Output: Urine 1350 / 1350 Estimated Blood Loss 20 / 20 Urine Amount (Catheter) 1190 / 1190 Indwelling Urethral Catheter 1190 / 1190 Wound Vac Amount Right Anterior Rojas Other: Mode Setting Right Anterior Rojas Continuous Date of Last Bowel Movement 08/11/18 Narrative: GENERAL: 57 year old well-nourished, well developed male lying in bed. SKIN: Warm and dry. RIGHT facial abrasions noted. CARDIOVASCULAR: Regular rate and rhythm. RESPIRATORY: No accessory muscle use. Lungs clear to auscultation bilaterally. GASTROINTESTINAL: Abdomen soft, non-tender, nondistended. + BS. GENITOURINARY: Clear yellow urine draining to bedside Alvarenga bag. MUSCULOSKELETAL: Extremities without cyanosis, or edema. RLE soft splint with wound vac in place. MAEW, + perfused NEUROLOGICAL: Awake and alert. Normal speech. - Urinary Catheter Management Indwelling Urethral Catheter Cath placed during this visit: yes Reason for continuing: Chronic Urinary Retention Insertion date: 08/05/18 Results - Labs CBC & Chem 7: 08/14/18 06:38 08/14/18 06:33 Laboratory Results - last 24 hr 08/11/18 08/12/18 08/12/18 02:51 11:31 17:26 WBC RBC Hgb Hct MCV MCH MCHC RDW Plt Count MPV Neut % (Auto) Lymph % (Auto) [place] % (Auto) Eos % (Auto) Baso % (Auto) Neut # (Auto) Lymph # (Auto) [place] # (Auto) Eos # (Auto) Baso # (Auto) WBC Differential Differential Comment Sodium Potassium Chloride Carbon Dioxide Anion Gap BUN Creatinine Estimated GFR POC Glucose 130 H 126 H Random Glucose Lactic Acid Calcium Urine Color Yellow Urine Clarity Hazy H Urine pH 7.0 Ur Specific Orange 1.010 Urine Protein Negative Urine Glucose (UA) Negative Urine Ketones Negative Urine Occult Blood Small H Urine Nitrate Positive H Urine Bilirubin Negative Urine Urobilinogen Less than 2 Ur Leukocyte Esterase Large H Urine RBC 7 H Urine WBC 131 H Ur Squamous Epith Cells <1 Urine Bacteria Rare H Urine Mucus Few H Micro UA Comment Cath-culture ind Urine Culture Comments Cath-cult indicated 08/12/18 08/13/18 08/13/18 20:10 04:44 04:44 WBC 18.6 H RBC 3.33 L Hgb 10.4 L Hct 30.6 L MCV 91.8 MCH 31.2 MCHC 33.9 RDW 13.9 Plt Count 152 D MPV 7.4 Neut % (Auto) 88.4 H Lymph % (Auto) 3.9 L Cata[place] % (Auto) 7.1 Eos % (Auto) 0.4 Baso % (Auto) 0.2 Neut # (Auto) 16.5 H Lymph # (Auto) 0.7 L [place] # (Auto) 1.3 H Eos # (Auto) 0.1 Baso # (Auto) 0.0 WBC Differential . Differential Comment Auto diff final Sodium 135 L Potassium 4.0 Chloride 101 Carbon Dioxide 27.2 Anion Gap 7 BUN 26 H Creatinine 1.60 H Estimated GFR 45 L POC Glucose 132 H Random Glucose 131 H Lactic Acid Calcium 8.2 L Urine Color Urine Clarity Urine pH Ur Specific Orange Urine Protein Urine Glucose (UA) Urine Ketones Urine Occult Blood Urine Nitrate Urine Bilirubin Urine Urobilinogen Ur Leukocyte Esterase Urine RBC Urine WBC Ur Squamous Epith Cells Urine Bacteria Urine Mucus Micro UA Comment Urine Culture Comments 08/13/18 08/13/18 09:42 10:19 WBC RBC Hgb Hct MCV MCH MCHC RDW Plt Count MPV Neut % (Auto) Lymph % (Auto) [place] % (Auto) Eos % (Auto) Baso % (Auto) Neut # (Auto) Lymph # (Auto) [place] # (Auto) Eos # (Auto) Baso # (Auto) WBC Differential Differential Comment Sodium Potassium Chloride Carbon Dioxide Anion Gap BUN Creatinine Estimated GFR POC Glucose 188 H Random Glucose Lactic Acid 1.5 Calcium Urine Color Urine Clarity Urine pH Ur Specific Orange Urine Protein Urine Glucose (UA) Urine Ketones Urine Occult Blood Urine Nitrate Urine Bilirubin Urine Urobilinogen Ur Leukocyte Esterase Urine RBC Urine WBC Ur Squamous Epith Cells Urine Bacteria Urine Mucus Micro UA Comment Urine Culture Comments Microbiology 08/11/18 02:51 Catheterized Urine Urine Culture - Final Pseudomonas aeruginosa Assessment and Plan - Assessment (1) Facial bone fracture Code(s): S02.92XA - Unspecified fracture of facial bones, initial encounter for closed fracture Status: Acute (2) Laceration of leg Code(s): S81.819A - Laceration without foreign body, unspecified lower leg, initial encounter Status: Acute (3) Abrasion, multiple sites Code(s): T07.XXXA - Unspecified multiple injuries, initial encounter Status: Acute (4) Alcohol intoxication Code(s): F10.929 - Alcohol use, unspecified with intoxication, unspecified Status: Acute (5) Hypotension determined by examination Code(s): I95.9 - Hypotension, unspecified Status: Acute - Plan [place]: Misstepped and fell down an escalator. ETOH = 229 INJURIES: RIGHT facial lacerations (sutures) RIGHT orbital and maxillary sinus fx RIGHT lower leg degloving PMHx: HTN. Cirrhosis. BPH. ETOH abuse. RIGHT Facial lacerations, RIGHT orbital and maxillary sinus fx OMFS consulted Nonoperative management Soft diet Sinus precautions Pain control Bowel regimen OOB-PT and OT ordered SQ Heparin for DVT prophylaxis Sutures have been removed RIGHT lower extremity degloving, Severe PVD Podiatry consulted 08/05: MRI lower extremities -no fracture. Diffuse subcu emphysema. No drainable fluid. 08/05: I&D RIGHT leg w/ wound vac placement 08/07: I&D RIGHT leg w/ wound vac change 08/11: Wound VAC removal at bedside 08/12: Debridement of ulcer right lower leg with graft placement 08/08: DAHLIA = Supernormal bilateral lower extremity ABIs. Calcified noncompressible arteries which significantly limit utility of ankle-brachial indices for evaluation of peripheral arterial disease. Normal range bilateral toe brachial indices although there is significantly dampened waveforms in the right toe. Suspect some abnormal of small vessel disease on the right Pain control Bowel regimen Podiatry planning for wound vac removal on Wednesday OOB-PT and OT ordered WBAT RLE SQ Heparin for DVT prophylaxis 08/07: Leg wound - NEG 08/05: Wound leg -Pseudomonas luteola Pre-existing conditions: HTN, Cirrhosis, PVD, BPH, Alcohol use disorder Vital signs every 4 hours and as needed Amlodipine 5 mg QD (resumed at half his home dose) Resumed Atenolol, Flomax, Librium Lisinopril 10 mg qd (resumed at half his home dose) 08/05: Dilation and coud Alvarenga placement by urology in OR coil spring assembler consult placed Consider endovascular treatment if needed Trauma surgery/vascular surgery following Abstain from alcohol Hyperglycemia ADA diet SSI AC HS medium coverage Hgb A1C pending Hospitalist consulted Hx of BPH, UTI Supportive care 08/05: Dilation and coud Alvarenga placement by urology in OR 08/11: Urine cx- Pseudomonas T-max 102.6 WBC 18.6 Hypotensive this AM Started Levaquin today 500ml NS bolus x1 D/W Urologist Dr Rao who recommends keeping Alvarenga for now Obtain blood cultures Continue Flomax Hospitalist consulted Plan of care d/w patient and RN at bedside. Collaborating Trauma MD agrees with plan. Case management consulted to assist with discharge planning. (1) Facial bone fracture Qualifiers: Encounter type: initial encounter Facial bone/location: unspecified facial bone Fracture type: closed Qualified Code(s): S02.92XA - Unspecified fracture of facial bones, initial encounter for closed fracture (2) Laceration of leg Qualifiers: Encounter type: initial encounter Laterality: right Qualified Code(s): S81.811A - Laceration without foreign body, right lower leg, initial encounter (4) Alcohol intoxication Qualifiers: Complication of substance-induced condition: uncomplicated Qualified Code(s) : F10.920 - Alcohol use, unspecified with intoxication, uncomplicated
[2018-08-13] MEDS: [UNRECOGNIZED DRUG - OTHER] IRRIGATION SCH ×2 (11:11)
[2018-08-13] MEDS: SOD CHLORIDE 0.9% IRRIGATION SCH ×2 (11:11)
[2018-08-13] MEDS: NEOMYCIN IRRIGATION SCH ×2 (11:11)
--- NOTE | 2018-08-13 16:15 | P.PNURO ---
Subjective Patient symptoms today: Request to remove matthews catheter (that was placed in the OR one week ago) because of "UTI". Urine culture: pseudomonas, sensitive to all drugs tested. Wound culture: now neg. showed pseudomonas on admission culture. Trauma service thinks wound is not cause of fever and WBC. CBC: WBC elevated today for first time. Lactate WNL today. Had fever last night. 102.6. He can ambulate to toilet only with assistance. Has a hx of extreme urinary frequency (2-3x/hr). Urologically seen at [facility] for a foreskin problem. Circumcision planned. On Flomax. Pt. doesn't know if he has BPH, stricture or true etiology of the frequency. Apparently not yet fully evaluated at [place]. He doesn't know if he had a UTI before this admission. No pulmonary symptoms per patient. He drinks 4 beers daily. Never 6. Objective Vital Signs: Vital Signs 08/12/18 17:05 08/12/18 19:08 08/12/18 22:07 Temperature 99.4 F 98.8 F Pulse Rate 76 78 Respiratory Rate 15 18 22 Blood Pressure 101/53 L 137/66 Pulse Oximetry 95 100 08/12/18 22:15 08/12/18 23:50 08/13/18 00:00 Temperature 99.2 F Pulse Rate 75 78 72 Respiratory Rate 21 22 16 Blood Pressure 120/75 114/57 L 99/55 L Pulse Oximetry 99 99 100 08/13/18 00:14 08/13/18 00:15 08/13/18 00:30 Temperature 98.9 F Pulse Rate 69 73 Respiratory Rate 15 19 Blood Pressure 98/55 L 105/59 L Pulse Oximetry 100 100 96 08/13/18 00:45 08/13/18 00:57 08/13/18 04:27 Temperature 97.7 F 99.3 F Pulse Rate 75 78 81 Respiratory Rate 17 18 18 Blood Pressure 116/64 109/59 L 103/54 L Pulse Oximetry 95 97 96 08/13/18 08:00 08/13/18 08:40 08/13/18 12:00 Temperature 97.9 F 99.4 F Pulse Rate 85 85 Respiratory Rate 18 18 Blood Pressure 88/43 L 110/60 111/58 L Pulse Oximetry 94 L 95 Intake & Output 08/12/18 08/13/18 08/13/18 18:59 06:59 18:59 Intake Total 200 / 200 1935 / 1935 Output Total 1350 / 1350 1235 / 1235 Balance -1150 / -1150 700 / 700 Weight 123.7 kg Intake: IV 200 / 200 200 / 200 Ancef Inj 1 GM In NS Inj 100 ML 200 / 200 200 / 200 @ 200 mls/hr IV.SIG Q8H [facility] Rx #:[id number] Oral 0 / 0 735 / 735 Anesthesia Amount 1000 / 1000 Output: Urine 1350 / 1350 Estimated Blood Loss 20 / 20 Urine Amount (Catheter) 1190 / 1190 Indwelling Urethral Catheter 1190 / 1190 Wound Vac Amount Right Anterior Rojas Other: Mode Setting Right Anterior Rojas Continuous Date of Last Bowel Movement 08/11/18 Result Diagrams: 08/13/18 04:44 08/13/18 04:44 Medications and IVs: Active Medications Generic Name Dose Route Start Last Admin Trade Name Freq PRN Reason Stop Dose Admin Acetaminophen 650 mg 08/05/18 07:04 08/12/18 16:32 Tylenol PO 650 mg Q6H PRN Administration TEMPERATURE > 102 F Hydrocodone Bitart/Acetaminophen 1 tab 08/05/18 07:04 [place] 5/325 PO Q4H PRN Pain 1-5 Hydrocodone Bitart/Acetaminophen 2 tab 08/05/18 07:04 08/13/18 11:48 [place] 5/325 PO 2 tab Q4H PRN Administration Pain 6 - 10 Al Hydroxide/Mg Hydroxide 30 ml 08/05/18 09:00 08/13/18 09:43 Milk Of [place] Liq PO 30 ml BID [facility]HELLE Administration Amlodipine Besylate 5 mg 08/08/18 09:00 08/13/18 09:45 Norvasc PO Not Given DAILY [facility] Atenolol 50 mg 08/07/18 09:00 08/13/18 09:45 Tenormin PO Not Given DAILY [facility] Bacitracin 1 applicatio 08/05/18 09:00 08/13/18 09:47 Baciguent Oint TOPICAL 1 applicatio BID MICHELLE Administration Bisacodyl 10 mg 08/07/18 10:36 Dulcolax Supp RECTAL DAILY PRN SEVERE CONSITIPATION Chlorthalidone 25 mg 08/08/18 09:00 08/13/18 09:45 [place] PO Not Given DAILY [facility] Sodium Chloride 3,000 ml/ 0 ml 08/07/18 10:15 08/13/18 11:11 Neomycin/Polymyxin 2 ml IRRIGATION Not Given DAILY [facility] Dextrose 50 ml 08/08/18 09:11 D50w Vial IV.PUSH UNSCH PRN PER HYPOGLYCEMIA PROTOCOL Enalaprilat 1.25 mg 08/05/18 07:04 Vasotec Inj IV.PUSH Q8H PRN SBP>180, DBP>95 Glucagon 1 mg 08/08/18 09:11 Glucagon Inj OTHER PRN PRN for Hypoglycemia Protocol Heparin Sodium (Porcine) 5,000 units 08/06/18 14:00 08/13/18 15:24 Heparin Inj SQ 5,000 units Q8HR [facility]HELLE Administration Sodium Chloride 500 mls @ 30 mls/hr 08/12/18 09:00 08/12/18 22:00 Ns Inj IV.SIG Not Given .Q10H [facility] Insulin Aspart 0 unit 08/08/18 12:00 08/13/18 12:09 Novolog Insulin Correctional Sugar Inj SQ 2 unit ACHS MICHELLE Administration Protocol Lactulose 30 ml 08/08/18 09:00 08/13/18 09:43 Lactulose Liq PO 30 ml DAILY [facility] Administration Levofloxacin 500 mg 08/13/18 07:00 08/13/18 07:01 Levaquin PO 500 mg DAILY@0700 MICHELLE Administration Lisinopril 10 mg 08/08/18 09:00 08/13/18 09:45 Prinivil PO Not Given DAILY [facility] Miscellaneous 0 each 08/08/18 06:39 Pill Splitter OTHER UNSCH PRN SEE LABEL COMMENTS Miscellaneous Information 0 each 08/13/18 00:23 Misc Nursing Information OTHER 08/14/18 00:22 UNSCH PRN SEE LABEL COMMENTS Morphine Sulfate 4 mg 08/05/18 05:15 08/13/18 01:49 Morphine Inj IV.PUSH 4 mg Q4H PRN Administration BREAKTHROUGH PAIN Naloxone HCl 0.4 mg 08/07/18 10:36 Narcan Inj IV.PUSH UNSCH PRN SEE LABEL COMMENTS Ondansetron HCl 4 mg 08/07/18 10:36 Zofran Inj IV.PUSH Q6H PRN NAUSEA OR VOMITING Ondansetron HCl 4 mg 08/07/18 10:36 Zofran Odt PO Q6H PRN NAUSEA OR VOMITING Pantoprazole Sodium 40 mg 08/10/18 09:00 08/13/18 09:43 Protonix PO 40 mg DAILY [facility]LE Administration Promethazine HCl 25 mg 08/07/18 10:36 Phenergan PO Q6H PRN NAUSEA OR VOMITING Promethazine HCl 25 mg 08/07/18 10:36 Phenergan Supp RECTAL Q6H PRN NAUSEA OR VOMITING Senna/Docusate Sodium 1 tab 08/07/18 21:00 08/13/18 09:44 Loida-Colace PO 1 tab BID MICHELLE Administration Sennosides 17.2 mg 08/07/18 10:36 Senokot PO Q12H PRN Moderate Constipation Sodium Chloride 2 ml 08/07/18 21:00 08/13/18 09:44 Ns Flush IV.FLUSH 2 ml BID MICHELLE Administration Sodium Chloride 2 ml 08/07/18 10:36 Ns Flush IV.FLUSH PRN PRN FLUSH AFTER USING IV ACCESS Tamsulosin HCl 0.4 mg 08/07/18 09:00 08/13/18 09:44 Flomax PO 0.4 mg DAILY MICHELLE Administration Objective Remarks: Matthews catheter in place. Urine clear. Leg wound wrapped. Assessment and Plan - Assessment (1) UTI (urinary tract infection), bacterial Code(s): N39.0 - Urinary tract infection, site not specified; A49.9 - Bacterial infection, unspecified Status: Acute (2) BXO (balanitis xerotica obliterans) Code(s): N48.0 - Leukoplakia of penis Status: Chronic - Plan Discussed at length with Prasanna Franco. Not a clear cut picture Urologically. If matthews catheter is removed now, and if he cannot empty his bladder( which is now unknown), he could become septic from the Pseudomonas. It is safer to leave matthews in place now. REC: leave matthews in place. Blood cultures. Re-evaluate pt. tomorrow re: VS, CBC, and then have another discussion about matthews tomorrow. Discussed Condition With: Patient, nurse, Prasanna Franco.
--- NOTE | 2018-08-13 17:00 | P.PNPOD ---
Physical Exam Vital signs: Vital Signs 08/12/18 17:05 08/12/18 19:08 08/12/18 22:07 Temperature 99.4 F 98.8 F Pulse Rate 76 78 Respiratory Rate 15 18 22 Blood Pressure 101/53 L 137/66 Pulse Oximetry 95 100 08/12/18 22:15 08/12/18 23:50 08/13/18 00:00 Temperature 99.2 F Pulse Rate 75 78 72 Respiratory Rate 21 22 16 Blood Pressure 120/75 114/57 L 99/55 L Pulse Oximetry 99 99 100 08/13/18 00:14 08/13/18 00:15 08/13/18 00:30 Temperature 98.9 F Pulse Rate 69 73 Respiratory Rate 15 19 Blood Pressure 98/55 L 105/59 L Pulse Oximetry 100 100 96 08/13/18 00:45 08/13/18 00:57 08/13/18 04:27 Temperature 97.7 F 99.3 F Pulse Rate 75 78 81 Respiratory Rate 17 18 18 Blood Pressure 116/64 109/59 L 103/54 L Pulse Oximetry 95 97 96 08/13/18 08:00 08/13/18 08:40 08/13/18 12:00 Temperature 97.9 F 99.4 F Pulse Rate 85 85 Respiratory Rate 18 18 Blood Pressure 88/43 L 110/60 111/58 L Pulse Oximetry 94 L 95 08/13/18 16:00 Temperature 97.4 F L Pulse Rate 77 Respiratory Rate 18 Blood Pressure 111/55 L Pulse Oximetry 96 Intake & Output 08/12/18 08/13/18 08/13/18 18:59 06:59 18:59 Intake Total 200 / 200 1935 / 1935 Output Total 1350 / 1350 1235 / 1235 Balance -1150 / -1150 700 / 700 Weight 123.7 kg Intake: IV 200 / 200 200 / 200 Ancef Inj 1 GM In NS Inj 100 ML 200 / 200 200 / 200 @ 200 mls/hr IV.SIG Q8H [facility] Rx #:[id number] Oral 0 / 0 735 / 735 Anesthesia Amount 1000 / 1000 Output: Urine 1350 / 1350 Estimated Blood Loss 20 / 20 Urine Amount (Catheter) 1190 / 1190 Indwelling Urethral Catheter 1190 / 1190 Wound Vac Amount Right Anterior Rojas Other: Mode Setting Right Anterior Rojas Continuous Date of Last Bowel Movement 08/11/18 Medications and Allergies Active Medications: Active Medications Acetaminophen (Tylenol) 650 mg PO Q6H PRN PRN Reason: TEMPERATURE > 102 F Last Admin: 08/12/18 16:32 Dose: 650 mg Hydrocodone Bitart/Acetaminophen ([place] 5/325) 1 tab PO Q4H PRN PRN Reason: Pain 1-5 Hydrocodone Bitart/Acetaminophen ([place] 5/325) 2 tab PO Q4H PRN PRN Reason: Pain 6 - 10 Last Admin: 08/13/18 11:48 Dose: 2 tab Al Hydroxide/Mg Hydroxide (Milk Of [place] Liq) 30 ml PO BID [facility] Last Admin: 08/13/18 09:43 Dose: 30 ml Amlodipine Besylate (Norvasc) 5 mg PO DAILY [facility] Last Admin: 08/13/18 09:45 Dose: Not Given Atenolol (Tenormin) 50 mg PO DAILY [facility] Last Admin: 08/13/18 09:45 Dose: Not Given Bacitracin (Baciguent Oint) 1 applicatio TOPICAL BID [facility] Last Admin: 08/13/18 09:47 Dose: 1 applicatio Bisacodyl (Dulcolax Supp) 10 mg RECTAL DAILY PRN PRN Reason: SEVERE CONSITIPATION Sodium Chloride 3,000 ml/ (Neomycin/Polymyxin 2 ml) 0 ml IRRIGATION DAILY [facility] Last Admin: 08/13/18 11:11 Dose: Not Given Dextrose (D50w Vial) 50 ml IV.PUSH UNSCH PRN PRN Reason: PER HYPOGLYCEMIA PROTOCOL Enalaprilat (Vasotec Inj) 1.25 mg IV.PUSH Q8H PRN PRN Reason: SBP>180, DBP>95 Glucagon (Glucagon Inj) 1 mg OTHER PRN PRN PRN Reason: for Hypoglycemia Protocol Heparin Sodium (Porcine) (Heparin Inj) 5,000 units SQ Q8HR [facility] Last Admin: 08/13/18 15:24 Dose: 5,000 units Sodium Chloride (Ns Inj) 500 mls @ 30 mls/hr IV.SIG .Q10H [facility] Last Admin: 08/12/18 22:00 Dose: Not Given Levofloxacin/Dextrose (Levaquin 750 Mg Premix Inj) 150 mls @ 100 mls/hr IV.SIG Q48H [facility] Insulin Aspart (Novolog Insulin Correctional Sugar Inj) 0 unit SQ ACHS [facility]; Protocol Last Admin: 08/13/18 12:09 Dose: 2 unit Lactulose (Lactulose Liq) 30 ml PO DAILY [facility] Last Admin: 08/13/18 09:43 Dose: 30 ml Miscellaneous (Pill Splitter) 0 each OTHER UNSCH PRN PRN Reason: SEE LABEL COMMENTS Miscellaneous Information (Mis Nursing Information) 0 each OTHER UNSCH PRN PRN Reason: SEE LABEL COMMENTS Stop: 08/14/18 00:22 Morphine Sulfate (Morphine Inj) 4 mg IV.PUSH Q4H PRN PRN Reason: BREAKTHROUGH PAIN Last Admin: 08/13/18 01:49 Dose: 4 mg Naloxone HCl (Narcan Inj) 0.4 mg IV.PUSH UNSCH PRN PRN Reason: SEE LABEL COMMENTS Ondansetron HCl (Zofran Inj) 4 mg IV.PUSH Q6H PRN PRN Reason: NAUSEA OR VOMITING Ondansetron HCl (Zofran Odt) 4 mg PO Q6H PRN PRN Reason: NAUSEA OR VOMITING Pantoprazole Sodium (Protonix) 40 mg PO DAILY [facility] Last Admin: 08/13/18 09:43 Dose: 40 mg Promethazine HCl (Phenergan) 25 mg PO Q6H PRN PRN Reason: NAUSEA OR VOMITING Promethazine HCl (Phenergan Supp) 25 mg RECTAL Q6H PRN PRN Reason: NAUSEA OR VOMITING Senna/Docusate Sodium (Loida-Colace) 1 tab PO BID [facility] Last Admin: 08/13/18 09:44 Dose: 1 tab Sennosides (Senokot) 17.2 mg PO Q12H PRN PRN Reason: Moderate Constipation Sodium Chloride (Ns Flush) 2 ml IV.FLUSH BID [facility] Last Admin: 08/13/18 09:44 Dose: 2 ml Sodium Chloride (Ns Flush) 2 ml IV.FLUSH PRN PRN PRN Reason: FLUSH AFTER USING IV ACCESS Tamsulosin HCl (Flomax) 0.4 mg PO DAILY [facility] Last Admin: 08/13/18 09:44 Dose: 0.4 mg Allergies Allergy/AdvReac Type Severity Reaction Status Date / Time No Known Allergies Allergy Verified 08/04/18 22:54 Home Medications Medication Instructions Recorded Confirmed Type alfuzosin 10 mg PO DAILY 08/06/18 08/06/18 History amlodipine 10 mg PO DAILY 08/06/18 08/06/18 History atenolol 50 mg PO DAILY 08/06/18 08/06/18 History chlorthalidone 25 mg PO DAILY 08/06/18 08/06/18 History lisinopril 20 mg PO DAILY 08/06/18 08/06/18 History Results - Labs CBC & Chem 7: 08/13/18 04:44 08/13/18 04:44 Laboratory Results - last 24 hr 08/12/18 08/12/18 08/13/18 17:26 20:10 04:44 WBC 18.6 H RBC 3.33 L Hgb 10.4 L Hct 30.6 L MCV 91.8 MCH 31.2 MCHC 33.9 RDW 13.9 Plt Count 152 D MPV 7.4 Neut % (Auto) 88.4 H Lymph % (Auto) 3.9 L [place] % (Auto) 7.1 Eos % (Auto) 0.4 Baso % (Auto) 0.2 Neut # (Auto) 16.5 H Lymph # (Auto) 0.7 L [place] # (Auto) 1.3 H Eos # (Auto) 0.1 Baso # (Auto) 0.0 WBC Differential . Differential Comment Auto diff final Sodium Potassium Chloride Carbon Dioxide Anion Gap BUN Creatinine Estimated GFR POC Glucose 126 H 132 H Random Glucose Lactic Acid Calcium 08/13/18 08/13/18 08/13/18 04:44 09:42 10:19 WBC RBC Hgb Hct MCV MCH MCHC RDW Plt Count MPV Neut % (Auto) Lymph % (Auto) [place] % (Auto) Eos % (Auto) Baso % (Auto) Neut # (Auto) Lymph # (Auto) [place] # (Auto) Eos # (Auto) Baso # (Auto) WBC Differential Differential Comment Sodium 135 L Potassium 4.0 Chloride 101 Carbon Dioxide 27.2 Anion Gap 7 BUN 26 H Creatinine 1.60 H Estimated GFR 45 L POC Glucose 188 H Random Glucose 131 H Lactic Acid 1.5 Calcium 8.2 L 08/13/18 11:48 WBC RBC Hgb Hct MCV MCH MCHC RDW Plt Count MPV Neut % (Auto) Lymph % (Auto) [place] % (Auto) Eos % (Auto) Baso % (Auto) Neut # (Auto) Lymph # (Auto) [place] # (Auto) Eos # (Auto) Baso # (Auto) WBC Differential Differential Comment Sodium Potassium Chloride Carbon Dioxide Anion Gap BUN Creatinine Estimated GFR POC Glucose 163 H Random Glucose Lactic Acid Calcium Microbiology 08/05/18 21:12 Wound - Leg Fungal Smear - Final No fungal elements seen 08/05/18 21:12 Wound - Leg Fungal Culture - Preliminary No growth in 1 week 08/05/18 21:12 Wound - Leg Acid Fast Bacilli Smear - Final No acid fast bacilli seen 08/05/18 21:12 Wound - Leg Mycobacterial Culture - Preliminary No growth in 1 week 08/11/18 02:51 Catheterized Urine Urine Culture - Final Pseudomonas aeruginosa Assessment and Plan - Assessment (1) Ulcer of right calf with necrosis of muscle Code(s): L97.213 - 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 Plan to remove vac and assess graft, and will apply compression bandage to right lower extremity.
[2018-08-13] MEDS ORDERED: Sod Chloride 0.9% Inj 1,000 ML IV.CONT SCH (17:08)
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
--- NOTE | 2018-08-13 17:30 | XR ---
EXAM DATE: 08/13/2018 5:28 PM EST AGE/SEX: 57 years / Male INDICATIONS: Pneumonia. Cough. CLINICAL DATA: This is the patient's subsequent encounter. Patient reports that signs and symptoms h ave been present for 1 day and indicates a pain score of 3/10. MEDICAL/SURGICAL HISTORY: None. None. [place] [facility] [place]06/2018. . FINDINGS: Single AP view of the chest. The lungs are clear. Cardiomediastinal silhouette within norm al limits. No evidence of pleural effusion or pneumothorax. CONCLUSION: No acute cardiopulmonary disease identified. Electronically signed by: Shawn Jarvis MD Board Certified Radiologist 08/13/2018 5:29 PM EST
[2018-08-13 23:16] LABS: Bilirubin,Urine Negative (Negative); Clarity,Urine Clear (Clear); Color,Urine Yellow (Yellw/Straw); Creatinine,Urine Random 56 mg/dL (27-300); Glucose,Urine (UA) Negative (Negative); Leukocyte Esterase,Urine Moderate (Negative); Mucus,Urine Few /lpf (Occasional); Nitrite,Urine Positive (Negative); Sodium,Urine Random 141 meq/L; Specific Gravity,Urine 1.013 (1.002-1.035); Squamous Epithelial Cell,Urine <1 /hpf (0-5)
[2018-08-13 23:21] LABS: Bacteria,Urine Few /hpf
[2018-08-14] MEDS: Heparin - SQ 10,000 UNITS/ML Vial SQ SCH ×2 (06:15→15:28)
[2018-08-14 08:29] LABS: Baso % (Auto) 0.2 % (0.0-2.0); Eos # (Auto) 0.1 th/mm3 (0.0-0.4); Eos % (Auto) 0.8 % (0.0-4.0); Hematocrit 29.1 % (39.0-51.0); Hemoglobin 9.8 gm/dL (13.0-17.0); Lymph # (Auto) 0.8 th/mm3 (1.0-4.8); Lymph % (Auto) 5.7 % (9.0-44.0); Mean Corpuscular HGB Conc 33.8 % (32.0-36.0); Mean Corpuscular Hemoglobin 31.6 pg (27.0-34.0); Mean Corpuscular Volume 93.4 fL (80.0-100.0); Mono # (Auto) 0.7 th/mm3 (0.0-0.9); Mono % (Auto) 5.4 % (0.0-8.0); Neut # (Auto) 12.3 th/mm3 (1.8-7.7); Neut % (Auto) 87.9 % (16.0-70.0); Platelet Count 156 th/mm3 (150-450); Red Blood Count 3.11 mil/mm3 (4.50-5.90); Red Cell Distribution Width 13.8 % (11.6-17.2)
[2018-08-14 08:50] LABS: Albumin 2.3 g/dL (3.4-5.0); Calcium 7.9 mg/dL (8.5-10.1); Carbon Dioxide 26.5 meq/L (21.0-32.0); Magnesium 2.5 mg/dL (1.5-2.5); Potassium 3.8 meq/L (3.5-5.1)
[2018-08-14 08:52] LABS: Phosphorus 2.6 mg/dL (2.5-4.9); Total Protein 7.4 g/dL (6.4-8.2)
[2018-08-14] MEDS: Insulin NovoLOG Aspart Correctional Sugar Inj SQ SCH ×4 (10:00→22:27)
[2018-08-14] MEDS: Senna/Docusate Sodium 8.6/50 MG Tablet PO SCH ×2 (10:00→20:20)
[2018-08-14] MEDS: [UNRECOGNIZED DRUG - OTHER] IRRIGATION SCH ×2 (10:01)
[2018-08-14] MEDS: SOD CHLORIDE 0.9% IRRIGATION SCH ×2 (10:01)
[2018-08-14] MEDS: NEOMYCIN IRRIGATION SCH ×2 (10:01)
--- NOTE | 2018-08-14 12:34 | P.PNURO ---
Subjective Patient symptoms today: 08/14/18: No new Urological symptoms. Patient has not been out of bed yet today. // Objective Vital Signs: Vital Signs 08/13/18 16:00 08/13/18 20:00 08/14/18 00:00 Temperature 97.4 F L 98.1 F 98.3 F Pulse Rate 77 87 76 Respiratory Rate 18 20 20 Blood Pressure 111/55 L 118/60 103/57 L Pulse Oximetry 96 98 97 08/14/18 04:00 08/14/18 08:00 Temperature 97.3 F L 98.3 F Pulse Rate 72 75 Respiratory Rate 20 19 Blood Pressure 104/55 L 100/55 L Pulse Oximetry 95 97 Intake & Output 08/13/18 08/14/18 08/14/18 18:59 06:59 18:59 Intake Total 120 / 120 Output Total 800 / 800 3600 / 3600 Balance -800 / -800 -3480 / -3480 Weight 118.6 kg Intake: Oral 120 / 120 Output: Urine 3600 / 3600 Urine Amount (Catheter) 800 / 800 Indwelling Urethral Catheter 800 / 800 Other: Date of Last Bowel Movement 08/11/18 08/11/18 08/11/18 Result Diagrams: 08/14/18 06:38 08/14/18 06:33 Imaging: Impressions Chest X-Ray 08/13/18 16:31 CONCLUSION: No acute cardiopulmonary disease identified. Medications and IVs: Active Medications Generic Name Dose Route Start Last Admin Trade Name Freq PRN Reason Stop Dose Admin Acetaminophen 650 mg 08/05/18 07:04 08/12/18 16:32 Tylenol PO 650 mg Q6H PRN Administration TEMPERATURE > 102 F Hydrocodone Bitart/Acetaminophen 1 tab 08/05/18 07:04 [place] 5/325 PO Q4H PRN Pain 1-5 Hydrocodone Bitart/Acetaminophen 2 tab 08/05/18 07:04 08/14/18 06:14 [place] 5/325 PO 2 tab Q4H PRN Administration Pain 6 - 10 Al Hydroxide/Mg Hydroxide 30 ml 08/05/18 09:00 08/14/18 10:00 Milk Of Magnesia Liq PO 30 ml BID MICHELLE Administration Amlodipine Besylate 5 mg 08/08/18 09:00 08/13/18 09:45 Norvasc PO Not Given DAILY MICHELLE Atenolol 50 mg 08/07/18 09:00 08/13/18 09:45 Tenormin PO Not Given DAILY MICHELLE Bacitracin 1 applicatio 08/05/18 09:00 08/14/18 10:01 Baciguent Oint TOPICAL 1 applicatio BID COUNTS INCLUDE 234 BEDS AT THE [facility] Administration Bisacodyl 10 mg 08/07/18 10:36 Dulcolax Supp RECTAL DAILY PRN SEVERE CONSITIPATION Sodium Chloride 3,000 ml/ 0 ml 08/07/18 10:15 08/14/18 10:01 Neomycin/Polymyxin 2 ml IRRIGATION Not Given DAILY COUNTS INCLUDE 234 BEDS AT THE [facility] Dextrose 50 ml 08/08/18 09:11 D50w Vial IV.PUSH UNSCH PRN PER HYPOGLYCEMIA PROTOCOL Enalaprilat 1.25 mg 08/05/18 07:04 Vasotec Inj IV.PUSH Q8H PRN SBP>180, DBP>95 Glucagon 1 mg 08/08/18 09:11 Glucagon Inj OTHER PRN PRN for Hypoglycemia Protocol Heparin Sodium (Porcine) 5,000 units 08/06/18 14:00 08/14/18 06:15 Heparin Inj SQ 5,000 units Q8HR COUNTS INCLUDE 234 BEDS AT THE [facility] Administration Sodium Chloride 500 mls @ 30 mls/hr 08/12/18 09:00 08/12/18 22:00 Ns Inj IV.SIG Not Given .Q10H COUNTS INCLUDE 234 BEDS AT THE [facility] Levofloxacin/Dextrose 150 mls @ 100 mls/hr 08/14/18 07:00 08/14/18 06:15 Levaquin 750 Mg Premix Inj IV.SIG 100 mls/hr Q48H MICHELLE Administration Insulin Aspart 0 unit 08/08/18 12:00 08/14/18 10:00 Novolog Insulin Correctional Sugar Inj SQ Not Given ACHS COUNTS INCLUDE 234 BEDS AT THE [facility] Protocol Lactulose 30 ml 08/08/18 09:00 08/14/18 10:00 Lactulose Liq PO 30 ml DAILY MICHELLE Administration Miscellaneous 0 each 08/08/18 06:39 Pill Splitter OTHER UNSCH PRN SEE LABEL COMMENTS Morphine Sulfate 4 mg 08/05/18 05:15 08/13/18 22:56 Morphine Inj IV.PUSH 4 mg Q4H PRN Administration BREAKTHROUGH PAIN Naloxone HCl 0.4 mg 08/07/18 10:36 Narcan Inj IV.PUSH UNSCH PRN SEE LABEL COMMENTS Ondansetron HCl 4 mg 08/07/18 10:36 Zofran Inj IV.PUSH Q6H PRN NAUSEA OR VOMITING Ondansetron HCl 4 mg 08/07/18 10:36 Zofran Odt PO Q6H PRN NAUSEA OR VOMITING Pantoprazole Sodium 40 mg 08/10/18 09:00 08/14/18 10:00 Protonix PO 40 mg DAILY MICHELLE Administration Promethazine HCl 25 mg 08/07/18 10:36 Phenergan PO Q6H PRN NAUSEA OR VOMITING Promethazine HCl 25 mg 08/07/18 10:36 Phenergan Supp RECTAL Q6H PRN NAUSEA OR VOMITING Senna/Docusate Sodium 1 tab 08/07/18 21:00 08/14/18 10:00 Loida-Colace PO 1 tab BID MICHELLE Administration Sennosides 17.2 mg 08/07/18 10:36 Senokot PO Q12H PRN Moderate Constipation Sodium Chloride 2 ml 08/07/18 21:00 08/14/18 10:01 Ns Flush IV.FLUSH 2 ml BID MICHELLE Administration Sodium Chloride 2 ml 08/07/18 10:36 08/13/18 22:58 Ns Flush IV.FLUSH 2 ml PRN PRN Administration FLUSH AFTER USING IV ACCESS Tamsulosin HCl 0.4 mg 08/07/18 09:00 08/14/18 10:00 Flomax PO 0.4 mg DAILY MICHELLE Administration Objective Remarks: 08/13/18: Matthews catheter in place. Urine clear. Leg wound wrapped. 08/14/18: Matthews in place. Urine clear. Leg wrapped. CBC: WBC improving from 18,900 to 14,000 this AM. Assessment and Plan - Assessment (1) UTI (urinary tract infection), bacterial Code(s): N39.0 - Urinary tract infection, site not specified; A49.9 - Bacterial infection, unspecified Status: Acute (2) BXO (balanitis xerotica obliterans) Code(s): N48.0 - Leukoplakia of penis Status: Chronic - Plan 08/13/18: Discussed at length with Prasanna Franco. Not a clear cut picture Urologically. If matthews catheter is removed now, and if he cannot empty his bladder( which is now unknown), he could become septic from the Pseudomonas. It is safer to leave matthews in place now. REC: leave matthews in place. Blood cultures. Re-evaluate pt. tomorrow re: VS, CBC, and then have another discussion about matthews tomorrow. 08/14/18: Imp: Same as yesterday. Leukocytosis could be from wound or even pulmonary, or DVT and not from the urine. REC: Leave matthews catheter in place until he can ambulate to toilet without assistance. He states that at home he was urinating at least hourly if not more frequently. Without the catheter this would require excessive nursing assistance as well as possibly producing Urosepsis if he cannot empty his bladder. Also, if he tries to void into a urinal in bed he may wet the bed, his dressing and possibly have a skin breakdown. PV residuals can be done with straight caths (or Bladder Scans possibly) after catheter removed. Discussed Condition With: Patient, nurse Shilpi.
--- NOTE | 2018-08-14 12:43 | P.PNIM ---
Subjective Interval history: Patient seen and examined this morning. Afebrile vital signs stable. No acute events overnight. Reports overall doing fine at this time other than continued chronic pain. He is being evaluated by urology get out of bed to urinate on his own. Current recommendations is continue with the catheter in place. Physical Exam Vital signs: Vital Signs 08/13/18 16:00 08/13/18 20:00 08/14/18 00:00 Temperature 97.4 F L 98.1 F 98.3 F Pulse Rate 77 87 76 Respiratory Rate 18 20 20 Blood Pressure 111/55 L 118/60 103/57 L Pulse Oximetry 96 98 97 08/14/18 04:00 08/14/18 08:00 Temperature 97.3 F L 98.3 F Pulse Rate 72 75 Respiratory Rate 20 19 Blood Pressure 104/55 L 100/55 L Pulse Oximetry 95 97 Intake & Output 08/13/18 08/14/18 08/14/18 18:59 06:59 18:59 Intake Total 120 / 120 Output Total 800 / 800 3600 / 3600 Balance -800 / -800 -3480 / -3480 Weight 118.6 kg Intake: Oral 120 / 120 Output: Urine 3600 / 3600 Urine Amount (Catheter) 800 / 800 Indwelling Urethral Catheter 800 / 800 Other: Date of Last Bowel Movement 08/11/18 08/11/18 08/11/18 Narrative: GENERAL: Well-nourished, well developed obese male male lying in bed. SKIN: Warm and dry. RIGHT facial abrasions noted. CARDIOVASCULAR: Regular rate and rhythm. Systolic murmur appreciated. RESPIRATORY: No accessory muscle use. Lungs clear to auscultation bilaterally. GASTROINTESTINAL: Abdomen soft, non-tender, nondistended. + BS. GENITOURINARY: Clear yellow urine draining to bedside Alvarenga bag. MUSCULOSKELETAL: Extremities without cyanosis, or edema. RLE soft splint with wound vac in place. NEUROLOGICAL: Awake and alert. Normal speech. - Urinary Catheter Management Indwelling Urethral Catheter Cath placed during this visit: yes Reason for continuing: Chronic Urinary Retention Insertion date: 08/05/18 Results - Labs CBC & Chem 7: 08/14/18 06:38 08/14/18 06:33 Laboratory Results - last 24 hr 08/13/18 08/13/18 08/13/18 17:07 20:45 20:45 WBC RBC Hgb Hct MCV MCH MCHC RDW Plt Count MPV Neut % (Auto) Lymph % (Auto) [place] % (Auto) Eos % (Auto) Baso % (Auto) Neut # (Auto) Lymph # (Auto) [place] # (Auto) Eos # (Auto) Baso # (Auto) WBC Differential Differential Comment Sodium Potassium Chloride Carbon Dioxide Anion Gap BUN Creatinine Estimated GFR POC Glucose 173 H Random Glucose Calcium Phosphorus Magnesium Total Bilirubin Direct Bilirubin Indirect Bilirubin AST ALT Alkaline Phosphatase Total Protein Albumin Urine Color Yellow Urine Clarity Clear Urine pH 7.0 Ur Specific [place] 1.013 Urine Protein Negative Urine Glucose (UA) Negative Urine Ketones Negative Urine Occult Blood Small H Urine Nitrate Positive H Urine Bilirubin Negative Urine Urobilinogen Less than 2 Ur Leukocyte Esterase Moderate H Urine RBC 1 Urine WBC 45 H Ur Squamous Epith Cells <1 Urine Bacteria Few H Urine Mucus Few H Micro UA Comment Cath-culture ind Ur Microscopic Review Not Reportable Urine Culture Comments Cath-cult indicated Ur Random Creatinine 56 Ur Random Sodium 141 08/13/18 08/14/18 08/14/18 22:24 06:33 06:38 WBC 14.0 H RBC 3.11 L Hgb 9.8 L Hct 29.1 L MCV 93.4 MCH 31.6 MCHC 33.8 RDW 13.8 Plt Count 156 MPV 8.0 Neut % (Auto) 87.9 H Lymph % (Auto) 5.7 L [place] % (Auto) 5.4 Eos % (Auto) 0.8 Baso % (Auto) 0.2 Neut # (Auto) 12.3 H Lymph # (Auto) 0.8 L [place] # (Auto) 0.7 Eos # (Auto) 0.1 Baso # (Auto) 0.0 WBC Differential . Differential Comment Auto diff final Sodium 139 Potassium 3.8 Chloride 103 Carbon Dioxide 26.5 Anion Gap 10 BUN 27 H Creatinine 1.48 H Estimated GFR 49 L POC Glucose 169 H Random Glucose 102 Calcium 7.9 L Phosphorus 2.6 Magnesium 2.5 Total Bilirubin 0.6 Direct Bilirubin 0.2 Indirect Bilirubin 0.4 AST 21 ALT 10 L Alkaline Phosphatase 153 H Total Protein 7.4 Albumin 2.3 L Urine Color Urine Clarity Urine pH Ur Specific [place] Urine Protein Urine Glucose (UA) Urine Ketones Urine Occult Blood Urine Nitrate Urine Bilirubin Urine Urobilinogen Ur Leukocyte Esterase Urine RBC Urine WBC Ur Squamous Epith Cells Urine Bacteria Urine Mucus Micro UA Comment Ur Microscopic Review Urine Culture Comments Ur Random Creatinine Ur Random Sodium 08/14/18 07:52 WBC RBC Hgb Hct MCV MCH MCHC RDW Plt Count MPV Neut % (Auto) Lymph % (Auto) [place] % (Auto) Eos % (Auto) Baso % (Auto) Neut # (Auto) Lymph # (Auto) [place] # (Auto) Eos # (Auto) Baso # (Auto) WBC Differential Differential Comment Sodium Potassium Chloride Carbon Dioxide Anion Gap BUN Creatinine Estimated GFR POC Glucose 123 H Random Glucose Calcium Phosphorus Magnesium Total Bilirubin Direct Bilirubin Indirect Bilirubin AST ALT Alkaline Phosphatase Total Protein Albumin Urine Color Urine Clarity Urine pH Ur Specific [place] Urine Protein Urine Glucose (UA) Urine Ketones Urine Occult Blood Urine Nitrate Urine Bilirubin Urine Urobilinogen Ur Leukocyte Esterase Urine RBC Urine WBC Ur Squamous Epith Cells Urine Bacteria Urine Mucus Micro UA Comment Ur Microscopic Review Urine Culture Comments Ur Random Creatinine Ur Random Sodium Microbiology 08/13/18 18:16 Blood - Peripheral Aerobic Blood Culture - Preliminary No growth in 1 day 08/13/18 18:16 Blood - Peripheral Anaerobic Blood Culture - Preliminary No growth in 1 day 08/13/18 18:11 Blood - Peripheral Aerobic Blood Culture - Preliminary No growth in 1 day 08/13/18 18:11 Blood - Peripheral Anaerobic Blood Culture - Preliminary No growth in 1 day 08/05/18 21:12 Wound - Leg Fungal Smear - Final No fungal elements seen 08/05/18 21:12 Wound - Leg Fungal Culture - Preliminary No growth in 1 week 08/05/18 21:12 Wound - Leg Acid Fast Bacilli Smear - Final No acid fast bacilli seen 08/05/18 21:12 Wound - Leg Mycobacterial Culture - Preliminary No growth in 1 week 08/11/18 02:51 Catheterized Urine Urine Culture - Final Pseudomonas aeruginosa - Imaging Impressions Chest X-Ray 08/13/18 16:31 CONCLUSION: No acute cardiopulmonary disease identified. Assessment and Plan - Assessment (1) UTI (urinary tract infection), bacterial Code(s): N39.0 - Urinary tract infection, site not specified; A49.9 - Bacterial infection, unspecified Status: Acute Onset Date: Unknown (2) BXO (balanitis xerotica obliterans) Code(s): N48.0 - Leukoplakia of penis Status: Chronic Onset Date: Unknown (3) Facial bone fracture Code(s): S02.92XA - Unspecified fracture of facial bones, initial encounter for closed fracture Status: Acute (4) Abrasion, multiple sites Code(s): T07.XXXA - Unspecified multiple injuries, initial encounter Status: Acute - Plan Trauma Injuries include right facial lacerations, right orbital and maxillary sinus fractures and right lower leg degloving. -Management per trauma surgery. -Pain control with a bowel regimen. -Incentive spirometry. -Rehab efforts. -follow with podiatry. Fever The patient has a Alvarenga catheter which was placed in the operating room. Urine culture is growing Pseudomonas that is pansensitive. -Change antibiotics to IV Levaquin, dosed renally. -Repeat UA. -Check blood cultures x2. -Repeat chest x-ray. -Urology consulted, recommendations appreciated Acute renal failure Unsure of baseline creatinine. -DC lisinopril and chlorthalidone. -We will give normal saline Hyperglycemia Glucose levels have been slightly elevated. -Check hemoglobin A1c level. -Insulin sliding scale. HTN Blood pressure on low side. -holding blood pressure meds. -IVFs. PPx: Per surgery Code Status: Full code Discharge Planning: Pending further medical and surgical workup (3) Facial bone fracture Qualifiers: Encounter type: initial encounter Facial bone/location: unspecified facial bone Fracture type: closed Qualified Code(s): S02.92XA - Unspecified fracture of facial bones, initial encounter for closed fracture
[2018-08-14 13:25] LABS: Hemoglobin A1c 5.4 % (4.3-6.0)
--- NOTE | 2018-08-14 17:30 | P.PN ---
Subjective Interval history: Feeling good, eating well T-max 99.4 SB assist OOB with walker Physical Exam Vital signs: Vital Signs 08/13/18 20:00 08/14/18 00:00 08/14/18 04:00 Temperature 98.1 F 98.3 F 97.3 F L Pulse Rate 87 76 72 Respiratory Rate 20 20 20 Blood Pressure 118/60 103/57 L 104/55 L Pulse Oximetry 98 97 95 08/14/18 08:00 08/14/18 12:00 Temperature 98.3 F 97.8 F Pulse Rate 75 75 Respiratory Rate 19 19 Blood Pressure 100/55 L 105/56 L Pulse Oximetry 97 98 Intake & Output 08/13/18 08/14/18 08/14/18 18:59 06:59 18:59 Intake Total 120 / 120 150 / 150 Output Total 800 / 800 3600 / 3600 Balance -800 / -800 -3480 / -3480 150 / 150 Weight 118.6 kg Intake: IV 150 / 150 Levaquin 750 mg Premix Inj 150 150 / 150 ML @ 100 mls/hr IV.SIG Q48H [facility] Rx#:[id number] Oral 120 / 120 Output: Urine 3600 / 3600 Urine Amount (Catheter) 800 / 800 Indwelling Urethral Catheter 800 / 800 Other: Date of Last Bowel Movement 08/11/18 08/11/18 08/11/18 Narrative: GENERAL: 57 year old well-nourished male sitting up in bed. SKIN: Warm and dry. RIGHT facial abrasions noted. CARDIOVASCULAR: Regular rate and rhythm. RESPIRATORY: Lungs clear to auscultation bilaterally. GASTROINTESTINAL: Abdomen soft, non-tender, nondistended. + BS. GENITOURINARY: Clear yellow urine draining to bedside Alvarenga bag. MUSCULOSKELETAL: Extremities without cyanosis, or edema. RLE soft splint with wound vac in place. MAEW, + perfused NEUROLOGICAL: Awake and alert. Normal speech. - Urinary Catheter Management Indwelling Urethral Catheter Cath placed during this visit: yes Reason for continuing: Chronic Urinary Retention Insertion date: 08/05/18 Results - Labs CBC & Chem 7: 08/14/18 06:38 08/14/18 06:33 Laboratory Results - last 24 hr 08/13/18 08/13/18 08/13/18 04:44 20:45 20:45 WBC RBC Hgb Hct MCV MCH MCHC RDW Plt Count MPV Neut % (Auto) Lymph % (Auto) [place] % (Auto) Eos % (Auto) Baso % (Auto) Neut # (Auto) Lymph # (Auto) [place] # (Auto) Eos # (Auto) Baso # (Auto) WBC Differential Differential Comment Sodium Potassium Chloride Carbon Dioxide Anion Gap BUN Creatinine Estimated GFR POC Glucose Random Glucose Hemoglobin A1c 5.4 Calcium Phosphorus Magnesium Total Bilirubin Direct Bilirubin Indirect Bilirubin AST ALT Alkaline Phosphatase Total Protein Albumin Urine Color Yellow Urine Clarity Clear Urine pH 7.0 Ur Specific [place] 1.013 Urine Protein Negative Urine Glucose (UA) Negative Urine Ketones Negative Urine Occult Blood Small H Urine Nitrate Positive H Urine Bilirubin Negative Urine Urobilinogen Less than 2 Ur Leukocyte Esterase Moderate H Urine RBC 1 Urine WBC 45 H Ur Squamous Epith Cells <1 Urine Bacteria Few H Urine Mucus Few H Micro UA Comment Cath-culture ind Ur Microscopic Review Not Reportable Urine Culture Comments Cath-cult indicated Ur Random Creatinine 56 Ur Random Sodium 141 08/13/18 08/14/18 08/14/18 22:24 06:33 06:38 WBC 14.0 H RBC 3.11 L Hgb 9.8 L Hct 29.1 L MCV 93.4 MCH 31.6 MCHC 33.8 RDW 13.8 Plt Count 156 MPV 8.0 Neut % (Auto) 87.9 H Lymph % (Auto) 5.7 L [place] % (Auto) 5.4 Eos % (Auto) 0.8 Baso % (Auto) 0.2 Neut # (Auto) 12.3 H Lymph # (Auto) 0.8 L [place] # (Auto) 0.7 Eos # (Auto) 0.1 Baso # (Auto) 0.0 WBC Differential . Differential Comment Auto diff final Sodium 139 Potassium 3.8 Chloride 103 Carbon Dioxide 26.5 Anion Gap 10 BUN 27 H Creatinine 1.48 H Estimated GFR 49 L POC Glucose 169 H Random Glucose 102 Hemoglobin A1c Calcium 7.9 L Phosphorus 2.6 Magnesium 2.5 Total Bilirubin 0.6 Direct Bilirubin 0.2 Indirect Bilirubin 0.4 AST 21 ALT 10 L Alkaline Phosphatase 153 H Total Protein 7.4 Albumin 2.3 L Urine Color Urine Clarity Urine pH Ur Specific [place] Urine Protein Urine Glucose (UA) Urine Ketones Urine Occult Blood Urine Nitrate Urine Bilirubin Urine Urobilinogen Ur Leukocyte Esterase Urine RBC Urine WBC Ur Squamous Epith Cells Urine Bacteria Urine Mucus Micro UA Comment Ur Microscopic Review Urine Culture Comments Ur Random Creatinine Ur Random Sodium 08/14/18 08/14/18 08/14/18 07:52 12:34 17:05 WBC RBC Hgb Hct MCV MCH MCHC RDW Plt Count MPV Neut % (Auto) Lymph % (Auto) [place] % (Auto) Eos % (Auto) Baso % (Auto) Neut # (Auto) Lymph # (Auto) [place] # (Auto) Eos # (Auto) Baso # (Auto) WBC Differential Differential Comment Sodium Potassium Chloride Carbon Dioxide Anion Gap BUN Creatinine Estimated GFR POC Glucose 123 H 165 H 168 H Random Glucose Hemoglobin A1c Calcium Phosphorus Magnesium Total Bilirubin Direct Bilirubin Indirect Bilirubin AST ALT Alkaline Phosphatase Total Protein Albumin Urine Color Urine Clarity Urine pH Ur Specific [place] Urine Protein Urine Glucose (UA) Urine Ketones Urine Occult Blood Urine Nitrate Urine Bilirubin Urine Urobilinogen Ur Leukocyte Esterase Urine RBC Urine WBC Ur Squamous Epith Cells Urine Bacteria Urine Mucus Micro UA Comment Ur Microscopic Review Urine Culture Comments Ur Random Creatinine Ur Random Sodium Microbiology 08/07/18 10:04 Wound - Leg Fungal Smear - Final No fungal elements seen 08/07/18 10:04 Wound - Leg Fungal Culture - Preliminary No growth in 1 week 08/07/18 10:04 Wound - Leg Acid Fast Bacilli Smear - Final No acid fast bacilli seen 08/07/18 10:04 Wound - Leg Mycobacterial Culture - Preliminary No growth in 1 week 08/13/18 18:16 Blood - Peripheral Aerobic Blood Culture - Preliminary No growth in 1 day 08/13/18 18:16 Blood - Peripheral Anaerobic Blood Culture - Preliminary No growth in 1 day 08/13/18 18:11 Blood - Peripheral Aerobic Blood Culture - Preliminary No growth in 1 day 08/13/18 18:11 Blood - Peripheral Anaerobic Blood Culture - Preliminary No growth in 1 day 08/05/18 21:12 Wound - Leg Fungal Smear - Final No fungal elements seen 08/05/18 21:12 Wound - Leg Fungal Culture - Preliminary No growth in 1 week 08/05/18 21:12 Wound - Leg Acid Fast Bacilli Smear - Final No acid fast bacilli seen 08/05/18 21:12 Wound - Leg Mycobacterial Culture - Preliminary No growth in 1 week - Imaging Impressions Chest X-Ray 08/13/18 16:31 CONCLUSION: No acute cardiopulmonary disease identified. Assessment and Plan - Assessment (1) Facial bone fracture Code(s): S02.92XA - Unspecified fracture of facial bones, initial encounter for closed fracture Status: Acute (2) Laceration of leg Code(s): S81.819A - Laceration without foreign body, unspecified lower leg, initial encounter Status: Acute (3) Abrasion, multiple sites Code(s): T07.XXXA - Unspecified multiple injuries, initial encounter Status: Acute (4) Alcohol intoxication Code(s): F10.929 - Alcohol use, unspecified with intoxication, unspecified Status: Acute (5) Hypotension determined by examination Code(s): I95.9 - Hypotension, unspecified Status: Acute - Plan RAMPART: Misstepped and fell down an escalator. ETOH = 229 INJURIES: RIGHT facial lacerations (sutures) RIGHT orbital and maxillary sinus fx RIGHT lower leg degloving PMHx: HTN. Cirrhosis. BPH. ETOH abuse. RIGHT Facial lacerations, RIGHT orbital and maxillary sinus fx OMFS consulted Nonoperative management Soft diet Sinus precautions Pain control Bowel regimen OOB-PT and OT ordered SQ Heparin for DVT prophylaxis Sutures have been removed RIGHT lower extremity degloving, Severe PVD Podiatry consulted 08/05: MRI lower extremities -no fracture. Diffuse subcu emphysema. No drainable fluid. 08/05: I&D RIGHT leg w/ wound vac placement 08/07: I&D RIGHT leg w/ wound vac change 08/11: Wound VAC removal at bedside 08/12: Debridement of ulcer right lower leg with graft placement 08/08: DAHLIA = Supernormal bilateral lower extremity ABIs. Calcified noncompressible arteries which significantly limit utility of ankle-brachial indices for evaluation of peripheral arterial disease. Normal range bilateral toe brachial indices although there is significantly dampened waveforms in the right toe. Suspect some abnormal of small vessel disease on the right Pain control Bowel regimen Podiatry planning for wound vac removal on Wednesday OOB-PT and OT ordered WBAT RLE SQ Heparin for DVT prophylaxis 08/07: Leg wound - NEG 08/05: Wound leg -Pseudomonas luteola Pre-existing conditions: HTN, Cirrhosis, PVD, BPH, Alcohol use disorder Amlodipine 5 mg QD (resumed at half his home dose) Resumed Atenolol, Flomax, Librium Lisinopril 10 mg qd (resumed at half his home dose) 08/05: Dilation and coud Alvarenga placement by urology in [place] manager of marketing consult placed Consider endovascular treatment if needed Trauma surgery/vascular surgery following Abstain from alcohol Hyperglycemia ADA diet SSI AC HS medium coverage Hgb A1C pending Hospitalist consulted Hx of BPH, UTI Supportive care 08/05: Dilation and coud Alvarenga placement by urology in [place] 08/11: Urine cx- Pseudomonas Low grade temps WBC 14 IV Abx: Levaquin Urologist recommends continuation of Alvarenga Blood cultures pending Continue Flomax Hospitalist consulted Plan of care d/w patient and RN at bedside. Collaborating Trauma MD agrees with plan. Case management consulted to assist with discharge planning. Plan to DC home with HHC once cleared by Podiatry and wound care determined. (1) Facial bone fracture Qualifiers: Encounter type: initial encounter Facial bone/location: unspecified facial bone Fracture type: closed Qualified Code(s): S02.92XA - Unspecified fracture of facial bones, initial encounter for closed fracture (2) Laceration of leg Qualifiers: Encounter type: initial encounter Laterality: right Qualified Code(s): S81.811A - Laceration without foreign body, right lower leg, initial encounter (4) Alcohol intoxication Qualifiers: Complication of substance-induced condition: uncomplicated Qualified Code(s) : F10.920 - Alcohol use, unspecified with intoxication, uncomplicated
[2018-08-15] MEDS: Heparin - SQ 10,000 UNITS/ML Vial SQ SCH ×4 (00:34→21:25)
[2018-08-15 06:30] LABS: Hematocrit 28.4 % (39.0-51.0); Hemoglobin 9.8 gm/dL (13.0-17.0); Mean Corpuscular HGB Conc 34.6 % (32.0-36.0); Mean Corpuscular Hemoglobin 32.1 pg (27.0-34.0); Mean Corpuscular Volume 92.7 fL (80.0-100.0); Platelet Count 171 th/mm3 (150-450); Red Blood Count 3.06 mil/mm3 (4.50-5.90); Red Cell Distribution Width 14.1 % (11.6-17.2); White Blood Count 8.7 th/mm3 (4.0-11.0)
[2018-08-15 06:53] LABS: Alanine Aminotransferase 9 U/L (12-78); Albumin 2.2 g/dL (3.4-5.0); Anion Gap 7 meq/L (5-15); Aspartate Aminotransferase 21 U/L (15-37); Blood Urea Nitrogen 28 mg/dL (7-18); Carbon Dioxide 28.1 meq/L (21.0-32.0); Chloride 103 meq/L (98-107); Glomerular Filtration Rate 46 mL/min (>89); Glucose,Random 144 mg/dL (74-106); Potassium 3.7 meq/L (3.5-5.1); Sodium 138 meq/L (136-145)
[2018-08-15 06:56] LABS: Alkaline Phosphatase 134 U/L (45-117); Total Protein 7.3 g/dL (6.4-8.2)
[2018-08-15] MEDS: Insulin NovoLOG Aspart Correctional Sugar Inj SQ SCH ×4 (08:23→22:14)
[2018-08-15] MEDS: Senna/Docusate Sodium 8.6/50 MG Tablet PO SCH ×2 (08:25→21:26)
[2018-08-15] MEDS: NEOMYCIN IRRIGATION SCH ×2 (12:58)
[2018-08-15] MEDS: SOD CHLORIDE 0.9% IRRIGATION SCH ×2 (12:58)
[2018-08-15] MEDS: [UNRECOGNIZED DRUG - OTHER] IRRIGATION SCH ×2 (12:58)
--- NOTE | 2018-08-15 13:15 | P.PNURO ---
Subjective Patient symptoms today: Pt seen and examined. Per pt, he would get up 10-12 x per night to void. Long h/ o incomplete bladder emptying and recurrent UTI's. Objective Vital Signs: Vital Signs 08/14/18 16:00 08/14/18 20:30 08/14/18 23:36 Temperature 98.1 F 98.3 F 98.2 F Pulse Rate 73 76 76 Respiratory Rate 18 20 18 Blood Pressure 121/56 L 111/62 98/58 L Pulse Oximetry 98 98 98 08/15/18 08:00 Temperature 97.7 F Pulse Rate 69 Respiratory Rate 18 Blood Pressure 107/60 Pulse Oximetry 98 Intake & Output 08/14/18 08/15/18 08/15/18 18:59 06:59 18:59 Intake Total 150 / 150 960 / 960 Output Total 900 / 900 1150 / 1150 Balance -750 / -750 -190 / -190 Weight 117.1 kg Intake: IV 150 / 150 Levaquin 750 mg Premix Inj 150 150 / 150 ML @ 100 mls/hr IV.SIG Q48H [facility] Rx#:[id number] Oral 960 / 960 Output: Urine 900 / 900 Urine Amount (Catheter) 1150 / 1150 Indwelling Urethral Catheter 1150 / 1150 Other: Date of Last Bowel Movement 08/11/18 08/14/18 08/14/18 # Bowel Movements 3 Result Diagrams: 08/15/18 05:10 08/15/18 05:10 Medications and IVs: Active Medications Generic Name Dose Route Start Last Admin Trade Name Freq PRN Reason Stop Dose Admin Acetaminophen 650 mg 08/05/18 07:04 08/12/18 16:32 Tylenol PO 650 mg Q6H PRN Administration TEMPERATURE > 102 F Hydrocodone Bitart/Acetaminophen 1 tab 08/05/18 07:04 [place] 5/325 PO Q4H PRN Pain 1-5 Hydrocodone Bitart/Acetaminophen 2 tab 08/05/18 07:04 08/15/18 12:26 [place] 5/325 PO 2 tab Q4H PRN Administration Pain 6 - 10 Al Hydroxide/Mg Hydroxide 30 ml 08/05/18 09:00 08/15/18 08:25 Milk Of Magnesia Liq PO Not Given BID MICHELLE Amlodipine Besylate 5 mg 08/08/18 09:00 08/13/18 09:45 Norvasc PO Not Given DAILY [facility] Atenolol 50 mg 08/07/18 09:00 08/13/18 09:45 Tenormin PO Not Given DAILY [facility] Bacitracin 1 applicatio 08/05/18 09:00 08/15/18 08:25 Baciguent Oint TOPICAL 1 applicatio BID MICHELLE Administration Bisacodyl 10 mg 08/07/18 10:36 Dulcolax Supp RECTAL DAILY PRN SEVERE CONSITIPATION Sodium Chloride 3,000 ml/ 0 ml 08/07/18 10:15 08/15/18 12:58 Neomycin/Polymyxin 2 ml IRRIGATION Not Given DAILY [facility] Dextrose 50 ml 08/08/18 09:11 D50w Vial IV.PUSH UNSCH PRN PER HYPOGLYCEMIA PROTOCOL Enalaprilat 1.25 mg 08/05/18 07:04 Vasotec Inj IV.PUSH Q8H PRN SBP>180, DBP>95 Glucagon 1 mg 08/08/18 09:11 Glucagon Inj OTHER PRN PRN for Hypoglycemia Protocol Heparin Sodium (Porcine) 5,000 units 08/06/18 14:00 08/15/18 06:21 Heparin Inj SQ 5,000 units Q8HR MICHELLE Administration Sodium Chloride 500 mls @ 30 mls/hr 08/12/18 09:00 08/12/18 22:00 Ns Inj IV.SIG Not Given .Q10H [facility] Levofloxacin/Dextrose 150 mls @ 100 mls/hr 08/14/18 07:00 08/14/18 07:45 Levaquin 750 Mg Premix Inj IV.SIG Infused Q48H [facility] Infusion Insulin Aspart 0 unit 08/08/18 12:00 08/15/18 12:57 Novolog Insulin Correctional Sugar Inj SQ 2 unit ACHS MICHELLE Administration Protocol Lactulose 30 ml 08/08/18 09:00 08/15/18 08:25 Lactulose Liq PO Not Given DAILY [facility] Miscellaneous 0 each 08/08/18 06:39 Pill Splitter OTHER UNSCH PRN SEE LABEL COMMENTS Morphine Sulfate 4 mg 08/05/18 05:15 08/13/18 22:56 Morphine Inj IV.PUSH 4 mg Q4H PRN Administration BREAKTHROUGH PAIN Naloxone HCl 0.4 mg 08/07/18 10:36 Narcan Inj IV.PUSH UNSCH PRN SEE LABEL COMMENTS Ondansetron HCl 4 mg 08/07/18 10:36 Zofran Inj IV.PUSH Q6H PRN NAUSEA OR VOMITING Ondansetron HCl 4 mg 08/07/18 10:36 Zofran Odt PO Q6H PRN NAUSEA OR VOMITING Pantoprazole Sodium 40 mg 08/10/18 09:00 08/15/18 08:25 Protonix PO 40 mg DAILY [facility] Administration Promethazine HCl 25 mg 08/07/18 10:36 Phenergan PO Q6H PRN NAUSEA OR VOMITING Promethazine HCl 25 mg 08/07/18 10:36 Phenergan Supp RECTAL Q6H PRN NAUSEA OR VOMITING Senna/Docusate Sodium 1 tab 08/07/18 21:00 08/15/18 08:25 Loida-Colace PO Not Given BID MICHELLE Sennosides 17.2 mg 08/07/18 10:36 Senokot PO Q12H PRN Moderate Constipation Sodium Chloride 2 ml 08/07/18 21:00 08/15/18 08:25 Ns Flush IV.FLUSH 2 ml BID MICHELLE Administration Sodium Chloride 2 ml 08/07/18 10:36 08/13/18 22:58 Ns Flush IV.FLUSH 2 ml PRN PRN Administration FLUSH AFTER USING IV ACCESS Tamsulosin HCl 0.4 mg 08/07/18 09:00 08/15/18 08:25 Flomax PO 0.4 mg DAILY [facility] Administration Objective Remarks: 08/13/18: Matthews catheter in place. Urine clear. Leg wound wrapped. 08/14/18: Matthews in place. Urine clear. Leg wrapped. CBC: WBC improving from 18,900 to 14,000 this AM. 08/15 Abd:soft,nt,nd Matthews with slightly cloudy urine Assessment and Plan - Assessment (1) UTI (urinary tract infection), bacterial Code(s): N39.0 - Urinary tract infection, site not specified; A49.9 - Bacterial infection, unspecified Status: Acute (2) BXO (balanitis xerotica obliterans) Code(s): N48.0 - Leukoplakia of penis Status: Chronic - Plan 08/13/18: Discussed at length with Prasanna Franco. Not a clear cut picture Urologically. If matthews catheter is removed now, and if he cannot empty his bladder( which is now unknown), he could become septic from the Pseudomonas. It is safer to leave matthews in place now. REC: leave mathtews in place. Blood cultures. Re-evaluate pt. tomorrow re: VS, CBC, and then have another discussion about matthews tomorrow. 08/14/18: Imp: Same as yesterday. Leukocytosis could be from wound or even pulmonary, or DVT and not from the urine. REC: Leave matthews catheter in place until he can ambulate to toilet without assistance. He states that at home he was urinating at least hourly if not more frequently. Without the catheter this would require excessive nursing assistance as well as possibly producing Urosepsis if he cannot empty his bladder. Also, if he tries to void into a urinal in bed he may wet the bed, his dressing and possibly have a skin breakdown. PV residuals can be done with straight caths (or Bladder Scans possibly) after catheter removed. 08/15 57 y.o male with BPH with retention/incomplete bladder emptying with h/o UTI's. Will double Flomax 0.4 QHS 2 tabs ARF resolving. Creatinine at 1.5 Maintain matthews for now. Would give void trial in one week; if fails will need intervention.
--- NOTE | 2018-08-15 16:35 | P.PN ---
Subjective Interval history: Afebrile, leukocytosis improved Podiatry to remove wound vac at bedside today and eval wound No acute concerns Physical Exam Vital signs: Vital Signs 08/14/18 20:30 08/14/18 23:36 08/15/18 08:00 Temperature 98.3 F 98.2 F 97.7 F Pulse Rate 76 76 69 Respiratory Rate 20 18 18 Blood Pressure 111/62 98/58 L 107/60 Pulse Oximetry 98 98 98 08/15/18 12:00 Temperature 97.2 F L Pulse Rate 72 Respiratory Rate 18 Blood Pressure 127/64 Pulse Oximetry 99 Intake & Output 08/14/18 08/15/18 08/15/18 18:59 06:59 18:59 Intake Total 150 / 150 960 / 960 Output Total 900 / 900 1150 / 1150 Balance -750 / -750 -190 / -190 Weight 117.1 kg Intake: IV 150 / 150 Levaquin 750 mg Premix Inj 150 150 / 150 ML @ 100 mls/hr IV.SIG Q48H [facility] Rx#:[id number] Oral 960 / 960 Output: Urine 900 / 900 Urine Amount (Catheter) 1150 / 1150 Indwelling Urethral Catheter 1150 / 1150 Other: Date of Last Bowel Movement 08/11/18 08/14/18 08/14/18 # Bowel Movements 3 Narrative: GENERAL: 57 yo obese male OOB in chair. SKIN: Warm and dry. RIGHT facial abrasions noted. CARDIOVASCULAR: Regular rate and rhythm. RESPIRATORY: Lungs CTA bilaterally. GASTROINTESTINAL: Abdomen soft, non-tender, nondistended. + BS. GENITOURINARY: Clear yellow urine draining to bedside Alvarenga bag. MUSCULOSKELETAL: Extremities without cyanosis, or edema. RLE soft splint with wound vac and surgical shoe in place. MAMARCOS, + perfused NEUROLOGICAL: A&Ox3. Normal speech. - Urinary Catheter Management Indwelling Urethral Catheter Cath placed during this visit: yes Reason for continuing: Chronic Urinary Retention Insertion date: 08/05/18 Results - Labs CBC & Chem 7: 08/15/18 05:10 08/15/18 05:10 Laboratory Results - last 24 hr 08/14/18 08/14/18 08/15/18 17:05 20:36 05:10 WBC 8.7 RBC 3.06 L Hgb 9.8 L Hct 28.4 L MCV 92.7 MCH 32.1 MCHC 34.6 RDW 14.1 Plt Count 171 MPV 8.0 Sodium Potassium Chloride Carbon Dioxide Anion Gap BUN Creatinine Estimated GFR POC Glucose 168 H 159 H Random Glucose Calcium Total Bilirubin AST ALT Alkaline Phosphatase Total Protein Albumin 08/15/18 08/15/18 08/15/18 05:10 08:23 12:24 WBC RBC Hgb Hct MCV MCH MCHC RDW Plt Count MPV Sodium 138 Potassium 3.7 Chloride 103 Carbon Dioxide 28.1 Anion Gap 7 BUN 28 H Creatinine 1.55 H Estimated GFR 46 L POC Glucose 99 167 H Random Glucose 144 H Calcium 8.0 L Total Bilirubin 0.4 AST 21 ALT 9 L Alkaline Phosphatase 134 H Total Protein 7.3 Albumin 2.2 L Microbiology 08/13/18 20:45 Catheterized Urine Urine Culture - Final Pseudomonas aeruginosa 08/13/18 18:16 Blood - Peripheral Aerobic Blood Culture - Preliminary No growth in 2 days 08/13/18 18:16 Blood - Peripheral Anaerobic Blood Culture - Preliminary No growth in 2 days 08/13/18 18:11 Blood - Peripheral Aerobic Blood Culture - Preliminary No growth in 2 days 08/13/18 18:11 Blood - Peripheral Anaerobic Blood Culture - Preliminary No growth in 2 days 08/07/18 10:04 Wound - Leg Fungal Smear - Final No fungal elements seen 08/07/18 10:04 Wound - Leg Fungal Culture - Preliminary No growth in 1 week 08/07/18 10:04 Wound - Leg Acid Fast Bacilli Smear - Final No acid fast bacilli seen 08/07/18 10:04 Wound - Leg Mycobacterial Culture - Preliminary No growth in 1 week Assessment and Plan - Assessment (1) Facial bone fracture Code(s): S02.92XA - Unspecified fracture of facial bones, initial encounter for closed fracture Status: Acute (2) Laceration of leg Code(s): S81.819A - Laceration without foreign body, unspecified lower leg, initial encounter Status: Acute (3) Abrasion, multiple sites Code(s): T07.XXXA - Unspecified multiple injuries, initial encounter Status: Acute (4) Alcohol intoxication Code(s): F10.929 - Alcohol use, unspecified with intoxication, unspecified Status: Acute (5) Hypotension determined by examination Code(s): I95.9 - Hypotension, unspecified Status: Acute - Plan BLACKFEET: Misstepped and fell down an escalator. ETOH = 229 INJURIES: RIGHT facial lacerations (sutures) RIGHT orbital and maxillary sinus fx RIGHT lower leg degloving PMHx: HTN. Cirrhosis. BPH. ETOH abuse. RIGHT Facial lacerations, RIGHT orbital and maxillary sinus fx OMFS consulted Nonoperative management Soft diet Sinus precautions Pain control Bowel regimen OOB-PT and OT ordered SQ Heparin for DVT prophylaxis Sutures have been removed RIGHT lower extremity degloving, Severe PVD Podiatry consulted 08/05: MRI lower extremities -no fracture. Diffuse subcu emphysema. No drainable fluid. 08/05: I&D RIGHT leg w/ wound vac placement 08/07: I&D RIGHT leg w/ wound vac change 08/11: Wound VAC removal at bedside 08/12: Debridement of ulcer right lower leg with graft placement 08/08: DAHLIA = Supernormal bilateral lower extremity ABIs. Calcified noncompressible arteries which significantly limit utility of ankle-brachial indices for evaluation of peripheral arterial disease. Normal range bilateral toe brachial indices although there is significantly dampened waveforms in the right toe. Suspect some abnormal of small vessel disease on the right Pain control Bowel regimen Podiatry planning for wound vac today at bedside and eval wound OOB-PT and OT ordered WBAT RLE w/ surgical shoe SQ Heparin for DVT prophylaxis 08/07: Leg wound - NEG 08/05: Wound leg -Pseudomonas luteola Pre-existing conditions: HTN, Cirrhosis, PVD, BPH, Alcohol use disorder Amlodipine 5 mg QD (resumed at half his home dose) Resumed Atenolol, Flomax, Librium Lisinopril 10 mg qd (resumed at half his home dose) 08/05: Dilation and coud Alvarenga placement by urology in [place] almond paste mixer consult placed Consider endovascular treatment if needed Trauma surgery/vascular surgery following Abstain from alcohol Hyperglycemia ADA diet SSI AC HS medium coverage Hgb A1C 5.7 Hospitalist consulted Hx of BPH, UTI Supportive care 08/05: Dilation and coud Alvarenga placement by urology in [place] 08/11: Urine cx- Pseudomonas Afebrile No further leukocytosis IV Abx: Levaquin Urologist recommends continuation of Alvarenga and voiding trial in 1 week Blood cultures negative Flomax dose increased Hospitalist consulted Plan of care d/w patient and RN at bedside. Collaborating Trauma MD agrees with plan. Case management consulted to assist with discharge planning. Plan to DC home with HHC once cleared by Podiatry and wound care determined. (1) Facial bone fracture Qualifiers: Encounter type: initial encounter Facial bone/location: unspecified facial bone Fracture type: closed Qualified Code(s): S02.92XA - Unspecified fracture of facial bones, initial encounter for closed fracture (2) Laceration of leg Qualifiers: Encounter type: initial encounter Laterality: right Qualified Code(s): S81.811A - Laceration without foreign body, right lower leg, initial encounter (4) Alcohol intoxication Qualifiers: Complication of substance-induced condition: uncomplicated Qualified Code(s) : F10.920 - Alcohol use, unspecified with intoxication, uncomplicated
--- NOTE | 2018-08-15 17:05 | P.PNIM ---
Subjective Interval history: Follow up for trauma, facial injury, Pseudomonas UTI. Patient is resting in bed. Denies any chest pain, shortness of breath, fever, chills. Alvarenga in place due to urinary retention. Physical Exam Vital signs: Vital Signs 08/14/18 20:30 08/14/18 23:36 08/15/18 08:00 Temperature 98.3 F 98.2 F 97.7 F Pulse Rate 76 76 69 Respiratory Rate 20 18 18 Blood Pressure 111/62 98/58 L 107/60 Pulse Oximetry 98 98 98 08/15/18 12:00 Temperature 97.2 F L Pulse Rate 72 Respiratory Rate 18 Blood Pressure 127/64 Pulse Oximetry 99 Intake & Output 08/14/18 08/15/18 08/15/18 18:59 06:59 18:59 Intake Total 150 / 150 960 / 960 Output Total 900 / 900 1150 / 1150 Balance -750 / -750 -190 / -190 Weight 117.1 kg Intake: IV 150 / 150 Levaquin 750 mg Premix Inj 150 150 / 150 ML @ 100 mls/hr IV.SIG Q48H [facility] Rx#:[id number] Oral 960 / 960 Output: Urine 900 / 900 Urine Amount (Catheter) 1150 / 1150 Indwelling Urethral Catheter 1150 / 1150 Other: Date of Last Bowel Movement 08/11/18 08/14/18 08/14/18 # Bowel Movements 3 Narrative: GENERAL: Well-nourished, well developed obese male male lying in bed. SKIN: Warm and dry. RIGHT facial abrasions noted. CARDIOVASCULAR: Regular rate and rhythm. Systolic murmur appreciated. RESPIRATORY: No accessory muscle use. Lungs clear to auscultation bilaterally. GASTROINTESTINAL: Abdomen soft, non-tender, nondistended. + BS. GENITOURINARY: Clear yellow urine draining to bedside Alvarenga bag. MUSCULOSKELETAL: Extremities without cyanosis, or edema. RLE soft splint with wound vac in place. NEUROLOGICAL: Awake and alert. Normal speech. Urinary Catheter Management Indwelling Urethral Catheter: Cath placed during this visit: yes Reason for continuing: Chronic Urinary Retention Insertion date: 08/05/18 Results Labs CBC & Chem 7: 08/15/18 05:10 08/15/18 05:10 Labs: Microbiology 08/13/18 20:45 Catheterized Urine Urine Culture - Final Pseudomonas aeruginosa 08/13/18 18:16 Blood - Peripheral Aerobic Blood Culture - Preliminary No growth in 2 days 08/13/18 18:16 Blood - Peripheral Anaerobic Blood Culture - Preliminary No growth in 2 days 08/13/18 18:11 Blood - Peripheral Aerobic Blood Culture - Preliminary No growth in 2 days 08/13/18 18:11 Blood - Peripheral Anaerobic Blood Culture - Preliminary No growth in 2 days 08/07/18 10:04 Wound - Leg Fungal Smear - Final No fungal elements seen 08/07/18 10:04 Wound - Leg Fungal Culture - Preliminary No growth in 1 week 08/07/18 10:04 Wound - Leg Acid Fast Bacilli Smear - Final No acid fast bacilli seen 08/07/18 10:04 Wound - Leg Mycobacterial Culture - Preliminary No growth in 1 week Assessment and Plan (1) Facial bone fracture: Code(s): S02.92XA - Unspecified fracture of facial bones, initial encounter for closed fracture Status: Acute (2) Laceration of leg: Code(s): S81.819A - Laceration without foreign body, unspecified lower leg, initial encounter Status: Acute (3) Abrasion, multiple sites: Code(s): T07.XXXA - Unspecified multiple injuries, initial encounter Status: Acute (4) Alcohol intoxication: Code(s): F10.929 - Alcohol use, unspecified with intoxication, unspecified Status: Acute (5) Hypotension determined by examination: Code(s): I95.9 - Hypotension, unspecified Status: Acute Plan Mr. Mcdonald is a pleasant 57-year-old male with a history of hypertension, BPH who was brought to the ED on 08/05/2018 [place] in patient's [place] about 80 [place]. He admits to drinking about 8 beers prior to this incident. Fall from an escalator Facial traumatic injuries Right leg degloving injury -Maxillofacial surgery evaluated patient and recommended non-surgical management. -Podiatry performed surgical I&D and wound vac placement on the right leg. -Acetaminophen, [place] for pain -Bowel regimen. Pseudomonas Urinary tract infection -Currently on Levaquin, renally dosed. Hypertension -Continue Amlodipine, Atenolol Acute kidney injury - baseline unknown. Likely CKD stage III -Creatinine around 1.55. He likely has chronic kidney disease. Urinary retention -Urology following. Maintain Alvarenga for now. Full code. Heparin SQ. Progress Note: Quality VTE Deep Vein Thrombosis/Pulmonary Embolism Present on Admission: No _ (1) Facial bone fracture Qualifiers: Encounter type: initial encounter Facial bone/location: unspecified facial bone Fracture healing: Fracture type: closed Laterality: [place] fracture type: Mandible location: Qualified Code(s): S02.92XA - Unspecified fracture of facial bones, initial encounter for closed fracture (2) Laceration of leg Qualifiers: Encounter type: initial encounter Laterality: right Qualified Code(s): S81.811A - Laceration without foreign body, right lower leg, initial encounter (3) Alcohol intoxication Qualifiers: Complication of substance-induced condition: uncomplicated Qualified Code(s) : F10.920 - Alcohol use, unspecified with intoxication, uncomplicated
--- NOTE | 2018-08-15 17:56 | P.PNPOD ---
Physical Exam Vital signs: Vital Signs 08/14/18 20:30 08/14/18 23:36 08/15/18 08:00 Temperature 98.3 F 98.2 F 97.7 F Pulse Rate 76 76 69 Respiratory Rate 20 18 18 Blood Pressure 111/62 98/58 L 107/60 Pulse Oximetry 98 98 98 08/15/18 12:00 08/15/18 16:00 Temperature 97.2 F L 97.8 F Pulse Rate 72 74 Respiratory Rate 18 18 Blood Pressure 127/64 112/67 Pulse Oximetry 99 98 Intake & Output 08/14/18 08/15/18 08/15/18 18:59 06:59 18:59 Intake Total 150 / 150 960 / 960 Output Total 900 / 900 1150 / 1150 Balance -750 / -750 -190 / -190 Weight 117.1 kg Intake: IV 150 / 150 Levaquin 750 mg Premix Inj 150 150 / 150 ML @ 100 mls/hr IV.SIG Q48H [facility] Rx#:[id number] Oral 960 / 960 Output: Urine 900 / 900 Urine Amount (Catheter) 1150 / 1150 Indwelling Urethral Catheter 1150 / 1150 Other: Date of Last Bowel Movement 08/11/18 08/14/18 08/14/18 # Bowel Movements 3 Narrative: Graft in place and adherent right anterior agarwal area with mild bleeding. Healthy appearance. NO sign of infection present. Medications and Allergies Active Medications: Active Medications Acetaminophen (Tylenol) 650 mg PO Q6H PRN PRN Reason: TEMPERATURE > 102 F Last Admin: 08/12/18 16:32 Dose: 650 mg Hydrocodone Bitart/Acetaminophen ([place] 5/325) 1 tab PO Q4H PRN PRN Reason: Pain 1-5 Hydrocodone Bitart/Acetaminophen ([place] 5/325) 2 tab PO Q4H PRN PRN Reason: Pain 6 - 10 Last Admin: 08/15/18 17:27 Dose: 2 tab Al Hydroxide/Mg Hydroxide (Milk Of Magnesia Liq) 30 ml PO BID [facility] Last Admin: 08/15/18 08:25 Dose: Not Given Amlodipine Besylate (Norvasc) 5 mg PO DAILY [facility] Last Admin: 08/13/18 09:45 Dose: Not Given Atenolol (Tenormin) 50 mg PO DAILY [facility] Last Admin: 08/13/18 09:45 Dose: Not Given Bacitracin (Baciguent Oint) 1 applicatio TOPICAL BID [facility] Last Admin: 08/15/18 08:25 Dose: 1 applicatio Bisacodyl (Dulcolax Supp) 10 mg RECTAL DAILY PRN PRN Reason: SEVERE CONSITIPATION Sodium Chloride 3,000 ml/ (Neomycin/Polymyxin 2 ml) 0 ml IRRIGATION DAILY [facility] Last Admin: 08/15/18 12:58 Dose: Not Given Dextrose (D50w Vial) 50 ml IV.PUSH UNSCH PRN PRN Reason: PER HYPOGLYCEMIA PROTOCOL Enalaprilat (Vasotec Inj) 1.25 mg IV.PUSH Q8H PRN PRN Reason: SBP>180, DBP>95 Glucagon (Glucagon Inj) 1 mg OTHER PRN PRN PRN Reason: for Hypoglycemia Protocol Heparin Sodium (Porcine) (Heparin Inj) 5,000 units SQ Q8HR [facility] Last Admin: 08/15/18 13:58 Dose: 5,000 units Sodium Chloride (Ns Inj) 500 mls @ 30 mls/hr IV.SIG .Q10H [facility] Last Admin: 08/12/18 22:00 Dose: Not Given Levofloxacin/Dextrose (Levaquin 750 Mg Premix Inj) 150 mls @ 100 mls/hr IV.SIG Q48H [facility] Last Infusion: 08/14/18 07:45 Dose: Infused Insulin Aspart (Novolog Insulin Correctional Sugar Inj) 0 unit SQ ACHS [facility]; Protocol Last Admin: 08/15/18 17:27 Dose: Not Given Lactulose (Lactulose Liq) 30 ml PO DAILY [facility] Last Admin: 08/15/18 08:25 Dose: Not Given Miscellaneous (Pill Splitter) 0 each OTHER UNSCH PRN PRN Reason: SEE LABEL COMMENTS Morphine Sulfate (Morphine Inj) 4 mg IV.PUSH Q4H PRN PRN Reason: BREAKTHROUGH PAIN Last Admin: 08/13/18 22:56 Dose: 4 mg Naloxone HCl (Narcan Inj) 0.4 mg IV.PUSH UNSCH PRN PRN Reason: SEE LABEL COMMENTS Ondansetron HCl (Zofran Inj) 4 mg IV.PUSH Q6H PRN PRN Reason: NAUSEA OR VOMITING Ondansetron HCl (Zofran Odt) 4 mg PO Q6H PRN PRN Reason: NAUSEA OR VOMITING Pantoprazole Sodium (Protonix) 40 mg PO DAILY [facility] Last Admin: 08/15/18 08:25 Dose: 40 mg Promethazine HCl (Phenergan) 25 mg PO Q6H PRN PRN Reason: NAUSEA OR VOMITING Promethazine HCl (Phenergan Supp) 25 mg RECTAL Q6H PRN PRN Reason: NAUSEA OR VOMITING Senna/Docusate Sodium (Loida-Colace) 1 tab PO BID [facility] Last Admin: 08/15/18 08:25 Dose: Not Given Sennosides (Senokot) 17.2 mg PO Q12H PRN PRN Reason: Moderate Constipation Sodium Chloride (Ns Flush) 2 ml IV.FLUSH BID [facility] Last Admin: 08/15/18 08:25 Dose: 2 ml Sodium Chloride (Ns Flush) 2 ml IV.FLUSH PRN PRN PRN Reason: FLUSH AFTER USING IV ACCESS Last Admin: 08/13/18 22:58 Dose: 2 ml Tamsulosin HCl (Flomax) 0.4 mg PO DAILY [facility] Last Admin: 08/15/18 08:25 Dose: 0.4 mg Tamsulosin HCl (Flomax) 0.4 mg PO BID [facility] Allergies Allergy/AdvReac Type Severity Reaction Status Date / Time No Known Allergies Allergy Verified 08/04/18 22:54 Home Medications Medication Instructions Recorded Confirmed Type alfuzosin 10 mg PO DAILY 08/06/18 08/06/18 History amlodipine 10 mg PO DAILY 08/06/18 08/06/18 History atenolol 50 mg PO DAILY 08/06/18 08/06/18 History chlorthalidone 25 mg PO DAILY 08/06/18 08/06/18 History lisinopril 20 mg PO DAILY 08/06/18 08/06/18 History Results - Labs CBC & Chem 7: 08/15/18 05:10 08/15/18 05:10 Laboratory Results - last 24 hr 08/14/18 08/15/18 08/15/18 20:36 05:10 05:10 WBC 8.7 RBC 3.06 L Hgb 9.8 L Hct 28.4 L MCV 92.7 MCH 32.1 MCHC 34.6 RDW 14.1 Plt Count 171 MPV 8.0 Sodium 138 Potassium 3.7 Chloride 103 Carbon Dioxide 28.1 Anion Gap 7 BUN 28 H Creatinine 1.55 H Estimated GFR 46 L POC Glucose 159 H Random Glucose 144 H Calcium 8.0 L Total Bilirubin 0.4 AST 21 ALT 9 L Alkaline Phosphatase 134 H Total Protein 7.3 Albumin 2.2 L 08/15/18 08/15/18 08/15/18 08:23 12:24 17:23 WBC RBC Hgb Hct MCV MCH MCHC RDW Plt Count MPV Sodium Potassium Chloride Carbon Dioxide Anion Gap BUN Creatinine Estimated GFR POC Glucose 99 167 H 132 H Random Glucose Calcium Total Bilirubin AST ALT Alkaline Phosphatase Total Protein Albumin Microbiology 08/13/18 20:45 Catheterized Urine Urine Culture - Final Pseudomonas aeruginosa 08/13/18 18:16 Blood - Peripheral Aerobic Blood Culture - Preliminary No growth in 2 days 08/13/18 18:16 Blood - Peripheral Anaerobic Blood Culture - Preliminary No growth in 2 days 08/13/18 18:11 Blood - Peripheral Aerobic Blood Culture - Preliminary No growth in 2 days 08/13/18 18:11 Blood - Peripheral Anaerobic Blood Culture - Preliminary No growth in 2 days 08/07/18 10:04 Wound - Leg Fungal Smear - Final No fungal elements seen 08/07/18 10:04 Wound - Leg Fungal Culture - Preliminary No growth in 1 week 08/07/18 10:04 Wound - Leg Acid Fast Bacilli Smear - Final No acid fast bacilli seen 08/07/18 10:04 Wound - Leg Mycobacterial Culture - Preliminary No growth in 1 week Assessment and Plan - Assessment (1) Ulcer of right calf with necrosis of muscle Code(s): L97.213 - 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 Applied well-padded compression bandage with adaptic over graft, abd pads, soft roll and lynda from toes to knee with mild compression. Patient will need to keep dressing clean, dry, intact and will need home health set up through [facility] and follow up at [facility] for wound care to monitor graft. Clear for discharge from podiatry when ready per primary team
[2018-08-16] MEDS: Heparin - SQ 10,000 UNITS/ML Vial SQ SCH ×3 (06:03→21:58)
--- NOTE | 2018-08-16 06:24 | P.DCO ---
- Physical Therapy Order: Evaluate and treat, Improve ambulation, Strength and gait training - Home Health Nursing Order: Wound care and dressing changes, Nursing assessment with vital signs Instructions: Weekly wound care to RLE on Mondays: Apply adaptic over graft site, 4x4, ABD pad , cast padding from toes to below knee, and lynda bandage with mild compression from toes to knee. - Case Management Consult Case Management Consult-Home Health: Yes - Certification I have seen patient Samy Mcdonald on 08/16/18. My clinical findings support the need for the requested home health care services because: Limited mobility due to disease progression, Deconditioned with increased weakness, Limited ability to care for self I certify that my clinical findings support that this patient is homebound because: Post-op weakness
[2018-08-16] MEDS: Insulin NovoLOG Aspart Correctional Sugar Inj SQ SCH ×4 (10:09→23:15)
[2018-08-16] MEDS: Senna/Docusate Sodium 8.6/50 MG Tablet PO SCH ×2 (10:10→21:59)
--- NOTE | 2018-08-16 12:11 | P.PNURO ---
Subjective Patient symptoms today: Pt seen and examined. Feels well. Objective Vital Signs: Vital Signs 08/15/18 16:00 08/15/18 21:30 08/16/18 00:00 Temperature 97.8 F 98.6 F 99.2 F Pulse Rate 74 72 71 Respiratory Rate 18 18 18 Blood Pressure 112/67 117/58 L 109/60 Pulse Oximetry 98 99 98 08/16/18 08:00 Temperature 97.9 F Pulse Rate 76 Respiratory Rate 20 Blood Pressure 96/51 L Pulse Oximetry 98 Intake & Output 08/15/18 08/16/18 08/16/18 18:59 06:59 18:59 Intake Total 200 / 200 Output Total 400 / 400 1500 / 1500 Balance -400 / -400 -1300 / -1300 Weight 118.3 kg Intake: Oral 200 / 200 Output: Urine 400 / 400 1500 / 1500 Other: Date of Last Bowel Movement 08/14/18 08/14/18 08/15/18 # Bowel Movements 0 Result Diagrams: 08/15/18 05:10 08/15/18 05:10 Medications and IVs: Active Medications Generic Name Dose Route Start Last Admin Trade Name Freq PRN Reason Stop Dose Admin Acetaminophen 650 mg 08/05/18 07:04 08/12/18 16:32 Tylenol PO 650 mg Q6H PRN Administration TEMPERATURE > 102 F Hydrocodone Bitart/Acetaminophen 1 tab 08/05/18 07:04 08/16/18 10:11 [place] 5/325 PO 1 tab Q4H PRN Administration Pain 1-5 Hydrocodone Bitart/Acetaminophen 2 tab 08/05/18 07:04 08/16/18 06:05 [place] 5/325 PO 2 tab Q4H PRN Administration Pain 6 - 10 Al Hydroxide/Mg Hydroxide 30 ml 08/05/18 09:00 08/16/18 10:11 Milk Of Magnesia Liq PO 30 ml BID MICHELLE Administration Amlodipine Besylate 5 mg 08/08/18 09:00 08/13/18 09:45 Norvasc PO Not Given DAILY MICHELLE Atenolol 50 mg 08/07/18 09:00 08/13/18 09:45 Tenormin PO Not Given DAILY MICHELLE Bacitracin 1 applicatio 08/05/18 09:00 08/16/18 10:10 Baciguent Oint TOPICAL 1 applicatio BID MICHELLE Administration Bisacodyl 10 mg 08/07/18 10:36 Dulcolax Supp RECTAL DAILY PRN SEVERE CONSITIPATION Sodium Chloride 3,000 ml/ 0 ml 08/07/18 10:15 08/15/18 12:58 Neomycin/Polymyxin 2 ml IRRIGATION Not Given DAILY MICHELLE Dextrose 50 ml 08/08/18 09:11 D50w Vial IV.PUSH UNSCH PRN PER HYPOGLYCEMIA PROTOCOL Enalaprilat 1.25 mg 08/05/18 07:04 Vasotec Inj IV.PUSH Q8H PRN SBP>180, DBP>95 Glucagon 1 mg 08/08/18 09:11 Glucagon Inj OTHER PRN PRN for Hypoglycemia Protocol Heparin Sodium (Porcine) 5,000 units 08/06/18 14:00 08/16/18 06:03 Heparin Inj SQ 5,000 units Q8HR MICHELLE Administration Sodium Chloride 500 mls @ 30 mls/hr 08/12/18 09:00 08/12/18 22:00 Ns Inj IV.SIG Not Given .Q10H MICHELLE Levofloxacin/Dextrose 150 mls @ 100 mls/hr 08/14/18 07:00 08/16/18 06:04 Levaquin 750 Mg Premix Inj IV.SIG 100 mls/hr Q48H MICHELLE Administration Insulin Aspart 0 unit 08/08/18 12:00 08/16/18 10:09 Novolog Insulin Correctional Sugar Inj SQ Not Given ACHS [facility] Protocol Lactulose 30 ml 08/08/18 09:00 08/16/18 10:11 Lactulose Liq PO 30 ml DAILY MICHELLE Administration Miscellaneous 0 each 08/08/18 06:39 Pill Splitter OTHER UNSCH PRN SEE LABEL COMMENTS Morphine Sulfate 4 mg 08/05/18 05:15 08/13/18 22:56 Morphine Inj IV.PUSH 4 mg Q4H PRN Administration BREAKTHROUGH PAIN Naloxone HCl 0.4 mg 08/07/18 10:36 Narcan Inj IV.PUSH UNSCH PRN SEE LABEL COMMENTS Ondansetron HCl 4 mg 08/07/18 10:36 Zofran Inj IV.PUSH Q6H PRN NAUSEA OR VOMITING Ondansetron HCl 4 mg 08/07/18 10:36 Zofran Odt PO Q6H PRN NAUSEA OR VOMITING Pantoprazole Sodium 40 mg 08/10/18 09:00 08/16/18 10:10 Protonix PO 40 mg DAILY MICHELLE Administration Promethazine HCl 25 mg 08/07/18 10:36 Phenergan PO Q6H PRN NAUSEA OR VOMITING Promethazine HCl 25 mg 08/07/18 10:36 Phenergan Supp RECTAL Q6H PRN NAUSEA OR VOMITING Senna/Docusate Sodium 1 tab 08/07/18 21:00 08/16/18 10:10 Loida-Colace PO 1 tab BID MICHELLE Administration Sennosides 17.2 mg 08/07/18 10:36 Senokot PO Q12H PRN Moderate Constipation Sodium Chloride 2 ml 08/07/18 21:00 08/15/18 21:26 Ns Flush IV.FLUSH 2 ml BID MICHELLE Administration Sodium Chloride 2 ml 08/07/18 10:36 08/13/18 22:58 Ns Flush IV.FLUSH 2 ml PRN PRN Administration FLUSH AFTER USING IV ACCESS Tamsulosin HCl 0.4 mg 08/07/18 09:00 08/16/18 10:10 Flomax PO 0.4 mg DAILY MICHELLE Administration Tamsulosin HCl 0.4 mg 08/15/18 21:00 08/16/18 10:11 Flomax PO Not Given BID MICHELLE Objective Remarks: 08/13/18: Matthews catheter in place. Urine clear. Leg wound wrapped. 08/14/18: Matthews in place. Urine clear. Leg wrapped. CBC: WBC improving from 18,900 to 14,000 this AM. 08/15 Abd:soft,nt,nd Matthews with slightly cloudy urine 08/16 Abd:soft,nt,nd Matthews clear urine Assessment and Plan - Assessment (1) UTI (urinary tract infection), bacterial Code(s): N39.0 - Urinary tract infection, site not specified; A49.9 - Bacterial infection, unspecified Status: Acute (2) BXO (balanitis xerotica obliterans) Code(s): N48.0 - Leukoplakia of penis Status: Chronic - Plan 08/13/18: Discussed at length with Prasanna Franco. Not a clear cut picture Urologically. If matthews catheter is removed now, and if he cannot empty his bladder( which is now unknown), he could become septic from the Pseudomonas. It is safer to leave matthews in place now. REC: leave matthews in place. Blood cultures. Re-evaluate pt. tomorrow re: VS, CBC, and then have another discussion about matthews tomorrow. 08/14/18: Imp: Same as yesterday. Leukocytosis could be from wound or even pulmonary, or DVT and not from the urine. REC: Leave matthews catheter in place until he can ambulate to toilet without assistance. He states that at home he was urinating at least hourly if not more frequently. Without the catheter this would require excessive nursing assistance as well as possibly producing Urosepsis if he cannot empty his bladder. Also, if he tries to void into a urinal in bed he may wet the bed, his dressing and possibly have a skin breakdown. PV residuals can be done with straight caths (or Bladder Scans possibly) after catheter removed. 08/15 57 y.o male with BPH with retention/incomplete bladder emptying with h/o UTI's. Will double Flomax 0.4 QHS 2 tabs ARF resolving. Creatinine at 1.5 Maintain matthews for now. Would give void trial in one week; if fails will need intervention. 08/16 57 y.o male with BPH with retention/incomplete bladder emptying with h/o UTI's. Flomax 0.4 QHS 2 tabs ARF resolving. Creatinine at 1.5 Maintain matthews for now. Would give void trial in one week; if fails will need intervention.
[2018-08-16] MEDS ORDERED: Sod Chloride 0.9% Inj 1,000 ML IV.SIG ONE (13:00)
[2018-08-16] MEDS: SOD CHLORIDE 0.9% IRRIGATION SCH ×2 (15:56)
[2018-08-16] MEDS: NEOMYCIN IRRIGATION SCH ×2 (15:56)
[2018-08-16] MEDS: [UNRECOGNIZED DRUG - OTHER] IRRIGATION SCH ×2 (15:56)
--- NOTE | 2018-08-16 16:29 | P.PNIM ---
Subjective Interval history: Follow up on patient with UTI, urinary retention, DANILO. Patient seen and examined. Patient tells me he is going home today. He does not voice any acute medical complaints or concerns. He denies any fever or chills. He denies any dizziness, lightheadedness, cough, N/V, dyspnea, chest pain or abdominal pain. DW nursing staff, no adverse events noted overnight. Physical Exam Vital signs: Vital Signs 08/15/18 21:30 08/16/18 00:00 08/16/18 08:00 Temperature 98.6 F 99.2 F 97.9 F Pulse Rate 72 71 76 Respiratory Rate 18 18 20 Blood Pressure 117/58 L 109/60 96/51 L Pulse Oximetry 99 98 98 08/16/18 12:00 Temperature 98.8 F Pulse Rate 77 Respiratory Rate 19 Blood Pressure 116/65 Pulse Oximetry 97 Intake & Output 08/15/18 08/16/18 08/16/18 18:59 06:59 18:59 Intake Total 200 / 200 Output Total 400 / 400 1500 / 1500 Balance -400 / -400 -1300 / -1300 Weight 118.3 kg Intake: Oral 200 / 200 Output: Urine 400 / 400 1500 / 1500 Other: Date of Last Bowel Movement 08/14/18 08/14/18 08/15/18 # Bowel Movements 0 Narrative: GENERAL: Well-nourished, well developed obese male male, INAD. Awake and alert. Appears comfortable sitting up in bedside chair. SKIN: Warm and dry. HEENT: +right sided facial abrasions noted. Pupils equal and round. No nasal drainage. MMM. CARDIOVASCULAR: Regular rate and rhythm. Systolic murmur appreciated. RESPIRATORY: No accessory muscle use. Diminished throughout, most notably at bases. No wheezing or rhonchi appreciated. GASTROINTESTINAL: Abdomen soft, non-tender, nondistended. + BS. GENITOURINARY: Matthews present with clear yellow urine in bag. MUSCULOSKELETAL: Extremities without cyanosis, or edema. NEUROLOGICAL: Awake and alert. Nonfocal. Able to move all extremities spontaneously. Normal speech. PSYCHIATRIC: Calm and cooperative. Urinary Catheter Management Indwelling Urethral Catheter: Cath placed during this visit: yes Reason for continuing: Chronic Urinary Retention Insertion date: 08/05/18 Results Labs CBC & Chem 7: 08/15/18 05:10 08/15/18 05:10 Labs: Microbiology 08/13/18 18:16 Blood - Peripheral Aerobic Blood Culture - Preliminary No growth in 3 days 08/13/18 18:16 Blood - Peripheral Anaerobic Blood Culture - Preliminary No growth in 3 days 08/13/18 18:11 Blood - Peripheral Aerobic Blood Culture - Preliminary No growth in 3 days 08/13/18 18:11 Blood - Peripheral Anaerobic Blood Culture - Preliminary No growth in 3 days 08/13/18 20:45 Catheterized Urine Urine Culture - Final Pseudomonas aeruginosa Assessment and Plan (1) Facial bone fracture: Code(s): S02.92XA - Unspecified fracture of facial bones, initial encounter for closed fracture Status: Acute Evaluation by maxillofacial service; does not appear to have any intraocular entrapment. Semi-elective repair may be accomplished after swelling resolves. Lower extremity injury is of higher priority. (2) Laceration of leg: Code(s): S81.819A - Laceration without foreign body, unspecified lower leg, initial encounter Status: Acute Dr. Flaherty take patient to the OR today for I&D and probable VAC placement of right lower extremity. Patient's healing will be very problematic due to his chronic venous stasis ulcers. He likely has significant peripheral vascular disease. (3) Abrasion, multiple sites: Code(s): T07.XXXA - Unspecified multiple injuries, initial encounter Status: Acute Local wound control with antibiotic ointment and dressings as necessary. (4) Alcohol intoxication: Code(s): F10.929 - Alcohol use, unspecified with intoxication, unspecified Status: Acute (5) Hypotension determined by examination: Code(s): I95.9 - Hypotension, unspecified Status: Acute Unclear etiology. Repeat hemoglobin only decreased from 11.1-10.2. Systolic blood pressure in the low to mid 90s. Patient is received 3 L crystalloid. In light of negative workup with CT of head C-spine thorax abdomen pelvis all being negative, patient likely is dehydrated, but requires close observation until this resolves. I do not feel that it he will require pressor therapy at this time, but this may be needed later today. We will recheck H&H. There is no active bleeding from the lower extremity wound at this time. Plan Trauma Injuries include right facial lacerations, right orbital and maxillary sinus fractures and right lower leg degloving. -Management per trauma surgery -Pain control with a bowel regimen -Incentive spirometry -Rehab efforts -s/p I&D, wound vac placement and subsequent removal. Continue to follow with podiatry. Wound care per podiatry. PSAE UTI -Urine culture is growing Pseudomonas that is pansensitive -continue on Levaquin renally dosed, changed from IV to po dosing to complete 7 day course. Fever Leukocytosis CXR unremarkable -suspect secondary to UTI and trauma/surgery -resolved -blood cx with no growth x 3 days -continue on abx management Acute renal failure on suspected CKD Unsure of baseline creatinine - no baseline labs for comparison -lisinopril and chlorthalidone discontinued. -treated with IVF -avoid nephrotoxic agents -monitor renal indices as indicated Urinary retention -Urology following, matthews placed, continue on Flomax if BP tolerates -plan to d/c with matthews and follow up as outpatient Hyperglycemia Glucose levels have been slightly elevated. -A1c 5.4 -Insulin sliding scale. HTN, now hypotensive, asymptomatic Blood pressure on low side - suspect secondary to Flomax use and negative fluid balance BUN 28 -continue to hold blood pressure meds. -IVFs ordered by primary team -monitor BP Anemia, postoperative anemia of acute blood loss -Hgb stable -no e/o active bleeding -monitor CBC as indicated PPx: Per surgery Code Status: FULL Discussed Condition With: patient, nursing staff, Dr. Perales Discharge Planning: per primary service Progress Note: Quality VTE Deep Vein Thrombosis/Pulmonary Embolism Present on Admission: No _ (1) Facial bone fracture Qualifiers: Encounter type: initial encounter Facial bone/location: unspecified facial bone Fracture healing: Fracture type: closed Laterality: [place] fracture type: Mandible location: Qualified Code(s): S02.92XA - Unspecified fracture of facial bones, initial encounter for closed fracture (2) Laceration of leg Qualifiers: Encounter type: initial encounter Laterality: right Qualified Code(s): S81.811A - Laceration without foreign body, right lower leg, initial encounter (3) Alcohol intoxication Qualifiers: Complication of substance-induced condition: uncomplicated Qualified Code(s) : F10.920 - Alcohol use, unspecified with intoxication, uncomplicated
--- NOTE | 2018-08-16 16:30 | P.PN ---
Subjective Interval history: Hypotensive today, BP meds held by nursing. Negative fluid balance Wants to go home Physical Exam Vital signs: Vital Signs 08/15/18 21:30 08/16/18 00:00 08/16/18 08:00 Temperature 98.6 F 99.2 F 97.9 F Pulse Rate 72 71 76 Respiratory Rate 18 18 20 Blood Pressure 117/58 L 109/60 96/51 L Pulse Oximetry 99 98 98 08/16/18 12:00 Temperature 98.8 F Pulse Rate 77 Respiratory Rate 19 Blood Pressure 116/65 Pulse Oximetry 97 Intake & Output 08/15/18 08/16/18 08/16/18 18:59 06:59 18:59 Intake Total 200 / 200 Output Total 400 / 400 1500 / 1500 Balance -400 / -400 -1300 / -1300 Weight 118.3 kg Intake: Oral 200 / 200 Output: Urine 400 / 400 1500 / 1500 Other: Date of Last Bowel Movement 08/14/18 08/14/18 08/15/18 # Bowel Movements 0 Narrative: GENERAL: 57 yo obese male lying in bed SKIN: Warm and dry. RIGHT facial abrasions noted. CARDIOVASCULAR: Regular rate and rhythm. RESPIRATORY: Lungs CTA bilaterally. GASTROINTESTINAL: Abdomen soft, non-tender, nondistended. + BS. GENITOURINARY: Clear yellow urine draining to bedside Alvarenga bag. MUSCULOSKELETAL: Extremities without cyanosis, or edema. RLE lynda wrap in place. MAEW, + perfused NEUROLOGICAL: A&Ox3. Normal speech. - Urinary Catheter Management Indwelling Urethral Catheter Cath placed during this visit: yes Reason for continuing: Chronic Urinary Retention Insertion date: 08/05/18 Results - Labs CBC & Chem 7: 08/15/18 05:10 08/15/18 05:10 Laboratory Results - last 24 hr 08/15/18 08/15/18 08/16/18 17:23 22:12 08:03 POC Glucose 132 H 145 H 145 H 08/16/18 12:22 POC Glucose 125 H Microbiology 08/13/18 18:16 Blood - Peripheral Aerobic Blood Culture - Preliminary No growth in 3 days 08/13/18 18:16 Blood - Peripheral Anaerobic Blood Culture - Preliminary No growth in 3 days 08/13/18 18:11 Blood - Peripheral Aerobic Blood Culture - Preliminary No growth in 3 days 08/13/18 18:11 Blood - Peripheral Anaerobic Blood Culture - Preliminary No growth in 3 days 08/13/18 20:45 Catheterized Urine Urine Culture - Final Pseudomonas aeruginosa Assessment and Plan - Assessment (1) Facial bone fracture Code(s): S02.92XA - Unspecified fracture of facial bones, initial encounter for closed fracture Status: Acute (2) Laceration of leg Code(s): S81.819A - Laceration without foreign body, unspecified lower leg, initial encounter Status: Acute (3) Abrasion, multiple sites Code(s): T07.XXXA - Unspecified multiple injuries, initial encounter Status: Acute (4) Alcohol intoxication Code(s): F10.929 - Alcohol use, unspecified with intoxication, unspecified Status: Acute (5) Hypotension determined by examination Code(s): I95.9 - Hypotension, unspecified Status: Acute - Plan [employer]: Misstepped and fell down an escalator. ETOH = 229 INJURIES: RIGHT facial lacerations (sutures) RIGHT orbital and maxillary sinus fx RIGHT lower leg degloving PMHx: HTN. Cirrhosis. BPH. ETOH abuse. RIGHT Facial lacerations, RIGHT orbital and maxillary sinus fx OMFS consulted Nonoperative management Soft diet Sinus precautions Pain control Bowel regimen OOB-PT and OT ordered SQ Heparin for DVT prophylaxis Sutures have been removed RIGHT lower extremity degloving, Severe PVD Podiatry consulted 08/05: MRI lower extremities -no fracture. Diffuse subcu emphysema. No drainable fluid. 08/05: I&D RIGHT leg w/ wound vac placement 08/07: I&D RIGHT leg w/ wound vac change 08/11: Wound VAC removal at bedside 08/12: Debridement of ulcer right lower leg with graft placement 08/08: DAHLIA = Supernormal bilateral lower extremity ABIs. Calcified noncompressible arteries which significantly limit utility of ankle-brachial indices for evaluation of peripheral arterial disease. Normal range bilateral toe brachial indices although there is significantly dampened waveforms in the right toe. Suspect some abnormal of small vessel disease on the right Pain control Bowel regimen Wound vac removed yesterday Weekly dressing changes with adaptic over graft, 4x4, abd, cast padding from toes to below knee, and lynda bandage with mild compression from toes to knee OOB-PT and OT ordered WBAT RLE w/ surgical shoe SQ Heparin for DVT prophylaxis 08/07: Leg wound - NEG 08/05: Wound leg -Pseudomonas luteola Pre-existing conditions: HTN, Cirrhosis, PVD, BPH, Alcohol use disorder Amlodipine 5 mg QD (resumed at half his home dose) Resumed Atenolol, Flomax, Librium Lisinopril 10 mg qd (resumed at half his home dose) 08/05: Dilation and coud Alvarenga placement by urology in OR Abstain from alcohol Hyperglycemia ADA diet SSI AC HS medium coverage Hgb A1C 5.7 Hospitalist consulted Hx of BPH, UTI Supportive care 08/05: Dilation and coud Alvarenga placement by urology in OR 08/11: Urine cx- Pseudomonas Afebrile No further leukocytosis IV Abx: Levaquin Urologist recommends continuation of Alvarenga and voiding trial in 1 week Blood cultures negative Flomax dose increased per Urology Hospitalist consulted 1 L bolus NS, then NS @ 100ml/H Plan of care d/w patient and RN at bedside. Collaborating Trauma MD agrees with plan. Case management consulted to assist with discharge planning. Plan to DC home with [facility] tomorrow. Patient will go home with Alvarenga. (1) Facial bone fracture Qualifiers: Encounter type: initial encounter Facial bone/location: unspecified facial bone Fracture type: closed Qualified Code(s): S02.92XA - Unspecified fracture of facial bones, initial encounter for closed fracture (2) Laceration of leg Qualifiers: Encounter type: initial encounter Laterality: right Qualified Code(s): S81.811A - Laceration without foreign body, right lower leg, initial encounter (4) Alcohol intoxication Qualifiers: Complication of substance-induced condition: uncomplicated Qualified Code(s) : F10.920 - Alcohol use, unspecified with intoxication, uncomplicated
[2018-08-16] MEDS: Sod Chloride 0.9% Inj 1,000 ML IV.CONT SCH (17:41)
[2018-08-17] MEDS: Sod Chloride 0.9% Inj 1,000 ML IV.CONT SCH (04:23)
[2018-08-17] MEDS: Insulin NovoLOG Aspart Correctional Sugar Inj SQ SCH ×3 (08:00→17:35)
[2018-08-17] MEDS: Heparin - SQ 10,000 UNITS/ML Vial SQ SCH ×2 (08:09→14:17)
[2018-08-17] MEDS: Senna/Docusate Sodium 8.6/50 MG Tablet PO SCH (10:57)
[2018-08-17] MEDS: NEOMYCIN IRRIGATION SCH ×2 (10:59)
[2018-08-17] MEDS: [UNRECOGNIZED DRUG - OTHER] IRRIGATION SCH ×2 (10:59)
[2018-08-17] MEDS: SOD CHLORIDE 0.9% IRRIGATION SCH ×2 (10:59)
--- NOTE | 2018-08-17 14:41 | P.PNIM ---
Subjective Interval history: Follow up on patient with UTI, urinary retention, DANILO. Patient seen and examined. Patient states he feels well. He is hopeful he is being discharged home today. He denies any dizziness, lightheadedness, vision changes or headache. He denies any sensation of feeling he is going to pass out with positional changes. He denies any fever chills denies any chest pain or shortness of breath. Physical Exam Vital signs: Vital Signs 08/16/18 16:00 08/16/18 20:00 08/17/18 00:00 Temperature 98.1 F 97.6 F 98.5 F Pulse Rate 77 77 73 Respiratory Rate 19 18 18 Blood Pressure 127/60 103/57 L 120/72 Pulse Oximetry 98 99 99 08/17/18 04:00 08/17/18 08:00 08/17/18 12:00 Temperature 99.1 F 98.3 F 98.0 F Pulse Rate 70 73 74 Respiratory Rate 18 18 17 Blood Pressure 113/71 108/71 115/56 L Pulse Oximetry 99 97 99 Intake & Output 08/16/18 08/17/18 08/17/18 18:59 06:59 18:59 Intake Total 1420 / 1420 Output Total 1260 / 1260 1999 / 1999 650 / 650 Balance -1260 / -1260 -580 / -580 -650 / -650 Weight 116.3 kg Intake: IV 1000 / 1000 NS Inj 1,000 ML @ 100 mls/hr IV 1000 / 1000 .CONT .Q10H MICHELLE Rx#:[id number] Oral 420 / 420 Output: Urine 1260 / 1260 1999 650 / 650 Other: # Voids 1 Date of Last Bowel Movement 08/15/18 08/16/18 # Bowel Movements 1 Narrative: GENERAL: Well-nourished, well developed obese male male, INAD. Awake and alert. Appears comfortable sitting up in bedside chair. SKIN: Warm and dry. HEENT: +right sided facial abrasions noted. Pupils equal and round. No nasal drainage. MMM. CARDIOVASCULAR: Regular rate and rhythm. Systolic murmur appreciated. RESPIRATORY: No accessory muscle use. Diminished throughout, most notably at bases. No wheezing or rhonchi appreciated. GASTROINTESTINAL: Abdomen soft, non-tender, nondistended. + BS. GENITOURINARY: Matthews present with clear yellow urine in bag. MUSCULOSKELETAL: Extremities without cyanosis, or edema. BLEs wrapped. NEUROLOGICAL: Awake and alert. Nonfocal. Able to move all extremities spontaneously. Normal speech. PSYCHIATRIC: Calm and cooperative. Urinary Catheter Management Indwelling Urethral Catheter: Cath placed during this visit: yes Reason for continuing: Chronic Urinary Retention Insertion date: 08/05/18 Results Labs CBC & Chem 7: 08/15/18 05:10 08/15/18 05:10 Labs: Microbiology 08/13/18 18:16 Blood - Peripheral Aerobic Blood Culture - Preliminary No growth in 4 days 08/13/18 18:16 Blood - Peripheral Anaerobic Blood Culture - Preliminary No growth in 4 days 08/13/18 18:11 Blood - Peripheral Aerobic Blood Culture - Preliminary No growth in 4 days 08/13/18 18:11 Blood - Peripheral Anaerobic Blood Culture - Preliminary No growth in 4 days Assessment and Plan (1) Facial bone fracture: Code(s): S02.92XA - Unspecified fracture of facial bones, initial encounter for closed fracture Status: Acute (2) Laceration of leg: Code(s): S81.819A - Laceration without foreign body, unspecified lower leg, initial encounter Status: Acute (3) Abrasion, multiple sites: Code(s): T07.XXXA - Unspecified multiple injuries, initial encounter Status: Acute (4) Alcohol intoxication: Code(s): F10.929 - Alcohol use, unspecified with intoxication, unspecified Status: Acute (5) Hypotension determined by examination: Code(s): I95.9 - Hypotension, unspecified Status: Acute Plan Trauma Injuries include right facial lacerations, right orbital and maxillary sinus fractures and right lower leg degloving. -Management per trauma surgery -Pain control with a bowel regimen -Incentive spirometry -Rehab efforts -s/p I&D, wound vac placement and subsequent removal. Continue to follow with podiatry. Wound care per podiatry. PSAE UTI -Urine culture is growing Pseudomonas that is pansensitive -continue on Levaquin renally dosed, changed from IV to po dosing to complete 7 day course. Fever Leukocytosis CXR unremarkable -suspect secondary to UTI and trauma/surgery -resolved -blood cx with no growth x 4 days -continue on abx management Acute renal failure on suspected CKD Unsure of baseline creatinine - no baseline labs for comparison -lisinopril and chlorthalidone discontinued. -treated with IVF -avoid nephrotoxic agents -monitor renal indices as indicated Urinary retention -Urology following, matthews placed, continue on Flomax if BP tolerates -plan to d/c with matthews and follow up as outpatient Hyperglycemia Glucose levels have been slightly elevated. -A1c 5.4 -Insulin sliding scale. HTN, now hypotensive, asymptomatic Blood pressure on low side - suspect secondary to Flomax use and negative fluid balance BUN 28 -continue to hold blood pressure meds. -BP improved s/p IVFs ordered by primary team -monitor BP Anemia, postoperative anemia of acute blood loss -Hgb stable -no e/o active bleeding -monitor CBC as indicated PPx: Per surgery Code Status: Full Discussed Condition With: patient, nursing staff, Dr. Perales Discharge Planning: per primary service Progress Note: Quality VTE Deep Vein Thrombosis/Pulmonary Embolism Present on Admission: No _ (1) Facial bone fracture Qualifiers: Encounter type: initial encounter Facial bone/location: unspecified facial bone Fracture healing: Fracture type: closed Laterality: [place] fracture type: Mandible location: Qualified Code(s): S02.92XA - Unspecified fracture of facial bones, initial encounter for closed fracture (2) Laceration of leg Qualifiers: Encounter type: initial encounter Laterality: right Qualified Code(s): S81.811A - Laceration without foreign body, right lower leg, initial encounter (3) Alcohol intoxication Qualifiers: Complication of substance-induced condition: uncomplicated Qualified Code(s) : F10.920 - Alcohol use, unspecified with intoxication, uncomplicated
--- NOTE | 2018-08-17 14:55 | P.DS ---
Date of admission: 08/05/18 07:04 Primary care physician: [facility] Attending physician on discharge: Raj Barfield Anticipated date of discharge: 08/17/18 Brief History from admission: Fall down the escalator DS: Diagnosis - Discharge Diagnosis (1) Facial bone fracture Status: Acute (2) Laceration of leg Status: Acute (3) Abrasion, multiple sites Status: Acute (4) Alcohol intoxication Status: Acute (5) Hypotension determined by examination Status: Acute DS: Medications - Discharge Medications Prescriptions: hydrocodone-acetaminophen [[place]] 1 tab PO Q4-6H PRN #18 tab PRN Reason: Acute Pain levofloxacin 750 mg PO Q48H 7 Days tab tamsulosin 0.4 mg PO BID #60 cap DS: Summary Hospital Course: ALATNA: This is a 57-year-old male who sustained a fall. He fell down an escalator at the [facility]. Apparently he missed a step, and fell down the entire flight of escalator stairs. Positive EtOH INJURIES: RIGHT Facial lacerations (5,1) White matter hypodensity -chronic and benign RIGHT orbital and maxillary sinus fx RIGHT lower extremity laceration PMHx: HTN. Cirrhosis. Left hydronephrosis. Procedures: 08/05: Dilation and coud Matthews placement 08/05: I&D RIGHT leg w/ wound vac placement 08/07: I&D RIGHT leg w/ wound vac change 08/11: Wound VAC removal at bedside 08/12: Debridement of ulcer right lower leg with graft placement 08/15 Wound vac removed Consults: OMFS. Podiatry. Hospitalist. Wound care Nurse. Urology. Case management. Patient would like to go home. The patient is now tolerating a po soft diet. Eating and drinking well. Continue soft diet at home. Pain is being managed well with PO pain medications, and patient is being a provided with a script for pain meds upon discharge. [This patient will be prescribed narcotic pain medications due to his traumatic injuries. The patient has a normal physiological response to severe traumatic injuries and surgery. He will need acute pain management with prescribed narcotic treatment. The [employer] prescription drug monitoring program database has been queried.] (NO driving while taking narcotic pain medication enforced to patient.) Pt is having regular bowel movements, and have recommended to patient to continue with stool softeners while taking narcotic pain medications to prevent constipation. Pt has been participating in PT and OT while admitted at [facility] and has been ambulating with their assistance and independently. Home health care PT ordered. Home health care with wound care ordered for dressing changes per podiatry recommendations. All follow up appointments have been provided and discussed with the patient. It is recommended that the patient keeps all his follow up appointments for continued recovery. Patient's condition and plan of care discussed with collaborating trauma surgeon. He is agreeable to plan for discharge today. Therefore, the patient is stable to be safely discharged home w [facility] from a trauma surgery standpoint. Thank you for allowing us to participate in his care. We wish Samy the best in his recovery. RIGHT Facial lacerations (5,1) RIGHT orbital and maxillary sinus fx OMFS consulted and assisting in management and care Supportive care Nonoperative management at this time Soft diet Sinus precautions Pain management Encourage out of bed PT and OT ordered Bowel regimen SCDs for DVT prophylaxis Wash facial lacerations daily with soap and water. Pat dry. Sutures have been removed May apply bacitracin twice daily RIGHT lower extremity laceration Severe PVD Podiatry consulted and assisting in management and care 08/05: MRI lower extremities -no fracture. Diffuse subcu emphysema. No drainable fluid. 08/05: I&D RIGHT leg w/ wound vac 08/07: I&D RIGHT leg w/ wound vac change 08/11: Wound VAC removal at bedside 08/12: Debridement of ulcer right lower leg with graft placement 08/15 Wound vac removed 08/08: DAHLIA = Supernormal bilateral lower extremity ABIs. Calcified noncompressible arteries which significantly limit utility of ankle-brachial indices for evaluation of peripheral arterial disease. Normal range bilateral toe brachial indices although there is significantly dampened waveforms in the right toe. Suspect some abnormal of small vessel disease on the right Supportive care Pain management Wound care per podiatry recommendations: [facility] w/ wound care- adaptic over graft, 4x4, abd, cast padding from toes to below knee, and viktor bandage with mild compression from toes to knee Encourage out of bed PT and OT ordered WBAT RLE Bowel regimen SCDs for DVT prophylaxis IV abx: Levaquin 08/07: Leg wound - NEG 08/05: Wound leg -Pseudomonas luteola Pre-existing condition HTN Cirrhosis Left hydronephrosis PVD Enlarged prostate Alcohol use Vital signs every 4 hours and as needed All blood pressure medications on hold due to hypotension. Follow-up with PCP regarding HTN continued management Transitioned to Diabetic diet. Monitor blood pressure closely in light of hypotension at admission BGM = 102-146 over the last 24 hrs. Hemoglobin A1c = 5.6 SSI continued AC HS medium coverage 08/05: Dilation and coud Matthews placement by urology in [place] Maintain matthews catheter in place at this time due to retention Patient teaching regarding caring for Matthews catheter at home Monitor urine output closely Monitor lower extremities in light of PVD, and wound healing jacquard fixer consult placed Consider endovascular treatment if needed Trauma surgery/vascular surgery following MVI times 3 days Discussed with patient the importance of abstaining from alcohol Urinary tract infection Enlarged prostate Retention Urology consulted and assisting in management and care 08/05: Dilation and coud Matthews placement by urology in OR due to difficulty in placing catheter IV abx: Levaquin 08/13: Urine - PSA 08/11: Urine- Pseudomonas Maintain Matthews catheter due to PSA infection If Matthews removed, and patient cannot empty bladder, he may develop urosepsis Additionally with difficulty using urinal, patient may soil leg wound, and cause /develop infection. Follow-up with urology outpatient in 1 week - Time Spent with Patient Total time spent providing and/or coordinating discharge services: Greater than 30 minutes - Quality: VTE Deep Vein Thrombosis/Pulmonary Embolism Present on Admission: No Exam Vital signs: Vital Signs 08/16/18 16:00 08/16/18 20:00 08/17/18 00:00 Temperature 98.1 F 97.6 F 98.5 F Pulse Rate 77 77 73 Respiratory Rate 19 18 18 Blood Pressure 127/60 103/57 L 120/72 Pulse Oximetry 98 99 99 08/17/18 04:00 08/17/18 08:00 08/17/18 12:00 Temperature 99.1 F 98.3 F 98.0 F Pulse Rate 70 73 74 Respiratory Rate 18 18 17 Blood Pressure 113/71 108/71 115/56 L Pulse Oximetry 99 97 99 Intake & Output 08/16/18 08/17/18 08/17/18 18:59 06:59 18:59 Intake Total 1420 / 1420 Output Total 1260 / 1260 1999 650 / 650 Balance -1260 / -1260 -580 / -580 -650 / -650 Weight 116.3 kg Intake: IV 1000 / 1000 NS Inj 1,000 ML @ 100 mls/hr IV 1000 / 1000 .CONT .Q10H MICHELLE Rx#:[id number] Oral 420 / 420 Output: Urine 1260 / 1260 1999 650 / 650 Other: # Voids 1 Date of Last Bowel Movement 08/15/18 08/16/18 # Bowel Movements 1 Narrative: GENERAL: This is a 57-year-old obese male lying in bed. No distress noted. SKIN: Warm and dry. HEAD: Atraumatic. Normocephalic. EYES: PERRLA. Several scattered healing superficial abrasions lacerations noted to right eye area/right side of face. ENT: No nasal bleeding or discharge. Mucous membranes pink and moist. NECK: Trachea midline. No JVD. CARDIOVASCULAR: Regular rate and rhythm. RESPIRATORY: No accessory muscle use. Lungs are clear to auscultation. Breath sounds equal bilaterally. No distress or dyspnea. GASTROINTESTINAL: BS + x 4 quads. Abdomen soft, non-tender, nondistended. MUSCULOSKELETAL: Extremities without cyanosis, or edema. Right lower extremity dressing in place and wrapped in Viktor bandage. Left lower extremity with dark pigmentation noted and scattered open abrasions. + peripheral pulses x 4 extremities. Warm with good capillary refill and sensation. MAEW. NEUROLOGICAL: Awake and alert. Normal speech and pattern. Results Procedures completed during hospitalization: . Labs on day of discharge: Labs from last 24 hours 08/17/18 08/17/18 08/16/18 11:33 08:20 23:15 POC Glucose 146 H 102 129 H 08/16/18 17:38 POC Glucose 121 H Preliminary micro results at discharge 08/13/18 18:16 Aerobic Blood Culture - Preliminary Blood - Peripheral No growth in 4 days Anaerobic Blood Culture - Preliminary No growth in 4 days 08/13/18 18:11 Aerobic Blood Culture - Preliminary Blood - Peripheral No growth in 4 days Anaerobic Blood Culture - Preliminary No growth in 4 days 08/07/18 10:04 Fungal Culture - Preliminary Wound - Leg No growth in 1 week 08/07/18 10:04 Mycobacterial Culture - Preliminary Wound - Leg No growth in 1 week 08/05/18 21:12 Fungal Culture - Preliminary Wound - Leg No growth in 1 week 08/05/18 21:12 Mycobacterial Culture - Preliminary Wound - Leg No growth in 1 week - Impressions ITS Impressions Tibia/Fibula X-Ray 08/04/18 22:57 CONCLUSION: No acute bony injury Abdomen/Pelvis CT 08/05/18 00:00 CONCLUSION: No acute traumatic injury in the abdomen or pelvis. Cervical Spine CT 08/05/18 00:00 CONCLUSION: No acute bony injury in the cervical spine. Chest CT 08/05/18 00:00 CONCLUSION: No acute traumatic injury in the chest. Face CT 08/05/18 00:00 CONCLUSION: Mildly displaced right orbital and maxillary fractures as described. Head CT 08/05/18 00:00 CONCLUSION: No acute intracranial injury . Lower Extremity MRI 08/05/18 08:54 CONCLUSION: 1. Diffuse subcutaneous edema. Minimal edema in the anterior tibialis muscle and the flexure hallucis longus muscle without evidence of tendinous retraction or full-thickness tear. No drainable fluid collection is identified. Extremity Arterial Study 08/08/18 00:00 CONCLUSION: 1. Supernormal bilateral lower extremity ABIs. Findings reflect calcified noncompressible arteries which significantly limit utility of ankle-brachial indices for evaluation of peripheral arterial disease. Consider CT angiography if there is continued significant clinical concern. 2. Normal range bilateral toe brachial indices although there is significantly dampened waveforms in the right toe. Suspect some abnormal of small vessel disease on the right. Aorta w/Runoff CTA 08/11/18 10:53 CONCLUSION: 1. Reasonable inflow to both lower extremities although the aorta is small. 2. There is no inflow stenosis to either leg with normal ABIs at the ankle TBI on the right suggest abnormality in the plantar arch. 3. Abnormal appearance to the bladder. Bladder is partially decompressed by a Matthews and is difficult to evaluate correlation suggested. Chest X-Ray 08/13/18 16:31 CONCLUSION: No acute cardiopulmonary disease identified. Discharge Plan - Discharge Disposition Patient Disposition: Disch W/Home Health Service - Discharge Condition Condition: Stable - Discharge Order Discharge Orders: Discharge Order (Routine); Ordered 08/17/18 Ordered By: Vane Delgadillo - Discharge Details Anticipated Discharge Date: 08/17/18 Discharge Comment: DC HOME with [facility] - Physicians Team Primary Care Provider: [facility] Attending Provider: Tor Crenshaw Other Providers: Wilton Westfall DDS ; Alem Flaherty DPM ; Samson Britton MD ; Willis Smalls MD ; [employer] ; Raj Barfield MD ; Vane Delgadillo ARNP ; Yeyo Benitez MD ; Kathy Lugo MD ; Prasanna Franco ARNP ; Susy Covarrubias MD ; Anil Perales MD
[2018-08-18] MEDS ORDERED: levoFLOXacin 750 MG Tablet PO SCH (09:00)
== END 2018-08-17 19:57 | disposition home health service (06) | DRG 571 ==
LOC: NEDA 22:31 → NEPC 22:31 → N03 08-05 08:55 → N06 08-05 20:32
PROVIDERS: ADMIT Surgery Trauma Surgery; ATTEND Surgery Trauma Surgery
DX: Y90.7 Blood alcohol level of 200-239 mg/100 ml; I87.2 Venous insufficiency (chronic) (peripheral); Z87.440 Personal history of urinary (tract) infections; S81.811A Laceration without foreign body, right lower leg, initial encounter; E66.01 Morbid (severe) obesity due to excess calories; S01.81XA Laceration without foreign body of other part of head, initial encounter; R33.8 Other retention of urine; S20.319A Abrasion of unspecified front wall of thorax, initial encounter; K74.60 Unspecified cirrhosis of liver; I83.029 Varicose veins of left lower extremity with ulcer of unspecified site; N13.6 Pyonephrosis; D62 Acute posthemorrhagic anemia; Z68.41 Body mass index [BMI] 40.0-44.9, adult; B96.5 Pseudomonas (aeruginosa) (mallei) (pseudomallei) as the cause of diseases classified elsewhere; I12.9 Hypertensive chronic kidney disease with stage 1 through stage 4 chronic kidney disease, or unspecified chronic kidney disease; L97.929 Non-pressure chronic ulcer of unspecified part of left lower leg with unspecified severity; E11.51 Type 2 diabetes mellitus with diabetic peripheral angiopathy without gangrene; R35.0 Frequency of micturition; Y92.39 Other specified sports and athletic area as the place of occurrence of the external cause; N48.0 Leukoplakia of penis; Z79.899 Other long term (current) drug therapy; Z90.49 Acquired absence of other specified parts of digestive tract; K02.9 Dental caries, unspecified; E11.22 Type 2 diabetes mellitus with diabetic chronic kidney disease; N35.911 Unspecified urethral stricture, male, meatal; S02.401A Maxillary fracture, unspecified side, initial encounter for closed fracture; F10.129 Alcohol abuse with intoxication, unspecified; N18.3 Chronic kidney disease, stage 3 (moderate); K59.00 Constipation, unspecified; T79.7XXA Traumatic subcutaneous emphysema, initial encounter; H11.31 Conjunctival hemorrhage, right eye; S00.211A Abrasion of right eyelid and periocular area, initial encounter; N17.9 Acute kidney failure, unspecified; E86.0 Dehydration; Y93.01 Activity, walking, marching and hiking; N40.1 Benign prostatic hyperplasia with lower urinary tract symptoms; I87.8 Other specified disorders of veins; E11.65 Type 2 diabetes mellitus with hyperglycemia; S02.31XA Fracture of orbital floor, right side, initial encounter for closed fracture; W10.0XXA Fall (on)(from) escalator, initial encounter; I95.9 Hypotension, unspecified
CPT/HCPCS: 12013; 12035; 36415; 70450; 70486; 71010; 71045; 71260; 72125; 73590; 73718; 74177; 75635; 80048; 80053; 80076; 80307; 81001; 82570; 82948; 82962; 83036; 83605; 83735; 84100; 84300; 85025; 85027; 85610; 85730; 86850; 86900; 86901; 87015; 87040; 87070; 87077; 87086; 87102; 87116; 87186; 87205; 87206; 87641; 90761; 90774; 90775; 90784; 93005; 93922; 94150; 96361; 96374; 96375; 97110; 97116; 97163; 97167; 97530; 97535; 99285; C8952; C9113; J0330; J0690; J1100; J1580; J1644; J1815; J1885; J1956; J2250; J2270; J2370; J2405; J2704; J3010; J3411; J3480; J7030; J7040; J7120; L3250; Q4148; Q9967